=== PATIENT | female | born 1980 | race Caucasian/White ===

== ENCOUNTER 2020-01-03 16:59 | Emergency (ER) | payer SELFPAY ==
[2020-01-03 17:28] VITALS: BP 146/84; PULSE 89; RESP 16; TEMP 36.3; O2SAT 100
--- NOTE | 2020-01-03 21:10 | ED.URI ---
HPI - URI/Sore Throat General Chief Complaint: Upper Respiratory Infection Stated Complaint: FACIAL PAIN Time Seen by Provider: 01/03/20 20:59 Source: patient and RN notes reviewed Mode of arrival: ambulatory Limitations: no limitations History of Present Illness HPI Narrative: A 39 y/o female presents to the ED with constant sinus pain and congestion beginning last night at 11 PM. She states that this morning she developed a mild cough, lt ear pain, chills, pain with deep inspiration, body aches, RIDLEY, and lt neck pain. She reports that she started her menstrual cycle today and has been having associated ABD cramps. She notes that she missed work today and needs a work note, so that is why she came to the ED. She denies any sore throat, visional changes, fevers, N/V/D, or CP. MD elicited complaint: nasal congestion and sinus pain Onset (ago): day(s) (last night at 11 PM) Consistency: constant Associated symptoms: other (a mild cough, lt ear pain, chills, pain with deep inspiration, body aches, RIDLEY, and lt neck pain) Related Data Allergies Allergy/AdvReac Type Severity Reaction Status Date / Time shellfish derived Allergy Swelling Verified 01/03/20 22:10 of Lip/Tongue/Throat WASP Allergy Swelling Uncoded 01/03/20 22:10 Review of Systems Review of Systems: Narrative: CONSTITUTIONAL: Denies fever. Reports chills and body aches. EYES: Denies visual changes. ENT: Denies sore throat. Reports nasal congestion, sinus pain, lt ear pain, and lt neck pain. CARDIOVASCULAR: Denies chest pain. RESPIRATORY: Reports a mild cough and pain with deep inspiration. GASTROINTESTINAL: Denies nausea, vomiting, or diarrhea. NEUROLOGIC: Reports a RIDLEY. All systems reviewed & are unremarkable except as noted in HPI and below PMFSH Past Medical History Medical History (Updated 01/04/20 @ 00:00 by Lokesh Warren) Anxiety Depression GERD (gastroesophageal reflux disease) Renal disease Surgical History Surgical History (Updated 01/03/20 @ 21:52 by Ray Vidal) Hx of tubal ligation Previous section Social History Social History (Updated 01/03/20 @ 21:53 by Ray Vidal) Smoking status: Unknown if ever smoked Gender identity (if verbalized by the patient): Female Exam Narrative: Exam Narrative: GENERAL: Well-appearing, well-nourished, and in no acute distress. HEAD: Normocephalic, atraumatic. EYES: PERRLA and EOMI. ENT: Nares clear, no rhinorrhea or epistaxis. Mucous membranes moist. TM's clear. NECK: Supple. Mild anterior cervical adenopathy. CHEST: Clear to auscultation. No respiratory distress. HEART: Regular rate and rhythm. No murmur heard. Normal peripheral pulses. ABDOMEN: Soft, nontender, nondistended, normal active bowel sounds. EXTREMITIES: Normal range of motion. No edema. SKIN: Warm, dry, no rash. NEURO: No focal deficits. Alert and oriented X3. Course Course Emergency Course: Patient presented for evaluation of sinusitis type pain as well as fever. At the time of initial assessment, ABCs are intact. Patient does have some left-sided anterior cervical lymphadenopathy. Oropharynx is clear without signs of exudate or erythema, not consistent with strep pharyngitis. Patient with maxillary and frontal sinus pain no be consistent with sinusitis. Patient given antibiotic for sinusitis, advise follow-up with primary care provider. Vital Signs Vital signs: Vital Signs Temperature 36.3 C L 01/03/20 17:28 Pulse Rate 89 01/03/20 17:28 Respiratory Rate 16 01/03/20 17:28 Blood Pressure 146/84 H 01/03/20 17:28 Pulse Oximetry 100 01/03/20 17:28 Temperature 36.3 C L 01/03/20 17:28 Pulse Rate 94 01/03/20 22:05 Respiratory Rate 17 01/03/20 22:05 Blood Pressure 126/79 01/03/20 22:05 Pulse Oximetry 100 01/03/20 22:05 MDM - URI/Sore Throat Lab Data Labs: Influenza A Screen Negative Reference Range: Negative Influenza B Screen Negative Reference R
[2020-01-03 22:05] VITALS: BP 126/79; PULSE 94; RESP 17; O2SAT 100
== END 2020-01-03 22:05 | disposition home or self-care (01) ==
PROVIDERS: Emergency Provider Emergency Medicine; PCP Physician Assistant
DX: J32.9 Chronic sinusitis, unspecified (principal); K21.9 Gastro-esophageal reflux disease without esophagitis; N28.9 Disorder of kidney and ureter, unspecified
CPT/HCPCS: 87804; 99283

== ENCOUNTER 2020-11-08 10:40 | Emergency (ER) | payer SELFPAY ==
--- NOTE | 2020-11-08 10:50 | PC.NURSE ---
was called at 1046 with no answer and recording said no voicemail accepted.
--- NOTE | 2020-11-08 10:54 | PC.NURSE ---
called again at 1054, went to message that said not accepting calls at this time.
[2020-11-08 11:05] VITALS: BP 152/73; PULSE 86; RESP 18; TEMP 36.4; O2SAT 100
--- NOTE | 2020-11-08 11:31 | ED.DENTAL ---
HPI - Dental/Oral General Chief complaint: Dental/Oral Stated complaint: Tooth Pain Time Seen by Provider: 11/08/20 11:25 Source: patient Mode of arrival: ambulatory Limitations: no limitations History of Present Illness HPI Narrative: Carmen Bullard is a 40 yo female with PMH of anxiety, depression GERD, who [facility] and lower right molar. Tooth is partially broken off and has some right sided facial swelling that started 2 days ago. Take prescription antibiotics up to about a week ago the tooth was getting better but now is gotten worse wants antibiotics were completed-last antibiotic she took was Augmentin and she is unable to afford another expensive antibiotic at this time as she is just started a new job and has no insurance benefits yet. She has a dental appointment set up for the week that her benefits start Related Data Home Medications Medication Instructions Recorded Confirmed Otc Vitamins 11/08/20 naproxen 11/08/20 Allergies Allergy/AdvReac Type Severity Reaction Status Date / Time shellfish derived Allergy Swelling Verified 01/03/20 22:10 of Lip/Tongue/Throat WASP Allergy Swelling Uncoded 01/03/20 22:10 Review of Systems Review of Systems: Narrative: CONSTITUTIONAL: Denies fever, chills, sweats. EYES: Denies visual changes, redness, discharge. ENT: Denies rhinorrhea, congestion, sore throat, otalgia. Right lower molar pain, partial tooth fracture CARDIOVASCULAR: Denies chest pain, palpitations, edema. RESPIRATORY: Denies dyspnea, wheezing, cough GASTROINTESTINAL: Denies abdominal pain, nausea, vomiting, diarrhea. GENITOURINARY: Denies dysuria, hematuria, abnormal discharge SKIN: Denies rash or itching. NEUROLOGIC: Denies numbness, or focal weakness. PSYCHIATRIC: Denies anxiety or depression. [facility] Past Medical History Medical History Anxiety Depression GERD (gastroesophageal reflux disease) Renal disease Surgical History Surgical History Hx of tubal ligation Previous section Social History Social History (Updated 11/08/20 @ 11:36 by Mony Lombardi CNP) Smoking status: Never smoker Alcohol intake: current Gender identity (if verbalized by the patient): Female Comments At time of signature, I agree with nursing past medical, surgical, social and family history. There is no relevant family history pertinent to the presenting complaint. Patient's blood pressure is elevated and is likely due to the amount of pain patient is in; patient follow-up with PCP Exam Narrative: Exam Narrative: GENERAL: This is a well-nourished, well-developed patient, in moderate distress. HEAD: normocephalic, atraumatic. EYES: Sclera clear/white. Vision is grossly intact. EARS: External ears normal, . Hearing grossly intact. NOSE: External nose normal without nasal discharge, nares without redness, no rhinorrhea. Mouth-right sided cheek swelling with pain and last tooth lower right, #32-on palpation there is no abscess at the gum level but redness and pain on movement of jaw THROAT: Mucous membranes moist, NECK: Neck supple, non-tender CARDIOVASCULAR: Regular rate and rhythm without murmurs, gallops, or rubs. RESPIRATORY: Clear to auscultation. Breath sounds equal bilaterally. No wheezes, rales, or rhonchi. GASTROINTESTINAL: Abdomen soft, non-tender, SKIN: warm, intact with no suspicious lesions or rash, good texture and turgor. NEURO: awake, alert, and oriented to person, place and time. There were no obvious focal neurologic abnormalities. Steady gait EXTREMITIES: Normal range of motion. BACK: Nontender without deformity Course Course Emergency Course: Patient comes with right-sided cheek swelling and right lower molar tooth pain Started on penicillin, Naprosyn, okay and [place] -no palpable abscess along the gumline Follow-up with nina
--- NOTE | 2020-11-11 10:12 | ED.DENTAL ---
HPI - Dental/Oral General Chief complaint: Dental/Oral Stated complaint: Tooth Pain Time Seen by Provider: 11/08/20 11:25 Source: patient and RN notes reviewed Mode of arrival: ambulatory Limitations: no limitations History of Present Illness HPI Narrative: 40 yo female returns to the [facility] care for continued dental pain. Was seen 3 days ago for the same. Related Data Allergies Allergy/AdvReac Type Severity Reaction Status Date / Time shellfish derived Allergy Swelling Verified 11/11/20 10:05 of Lip/Tongue/Throat WASP AdvReac Severe Swelling Uncoded 11/11/20 10:05 PMFSH Past Medical History Medical History Anxiety Depression GERD (gastroesophageal reflux disease) Renal disease Surgical History Surgical History Hx of tubal ligation Previous section Social History Social History (Updated 11/08/20 @ 11:36 by Mony Lombardi CNP) Smoking status: Never smoker Alcohol intake: current Gender identity (if verbalized by the patient): Female Course Vital Signs Vital signs: Vital Signs Temperature 97.6 F 11/08/20 11:05 Pulse Rate 86 11/08/20 11:05 Respiratory Rate 18 11/08/20 11:05 Blood Pressure 152/73 H 11/08/20 11:05 Pulse Oximetry 100 11/08/20 11:05 Temperature 97.6 F 11/08/20 11:05 Pulse Rate 86 11/08/20 11:05 Respiratory Rate 18 11/08/20 11:05 Blood Pressure 152/73 H 11/08/20 11:05 Pulse Oximetry 100 11/08/20 11:05 MDM - Dental/Oral MDM Narrative Medical decision making narrative: Due to the cellulitic changes of the right lower jaw, redness, warmth and increased pain. Patient is unable to open her mouth. Has been on antibiotics for 3 days. Transferring to the emergency room for further evaluation, CT scan, labs and antibiotic treatment failure Differential Diagnosis Differential diagnosis: Likely dental caries, toothache and dental abscess Discharge Plan Discharge Clinical Impression: Dental abscess Patient Disposition: Home, Self-Care Condition: Stable Instructions: Antibiotic Form, Dental Abscess (ED) Additional Instructions: Take antibiotics as directed use pain meds as needed, gargle with salt water 4 times a day and use ice on cheek for swelling Prescriptions: New penicillin V potassium 500 mg tablet 500 mg PO Q8H Qty: 30 RF: 0 ibuprofen 800 mg tablet 800 mg PO TID PRN (Reason: pain) Qty: 30 RF: 0 hydrocodone-acetaminophen [[place]] 5-325 mg tablet 1 tablet PO Q8H PRN (Reason: pain) Qty: 10 RF: 0 Follow-up/Referrals: UNKNOWN,DOCTOR [Primary Care Provider] - Stand Alone Forms: Work/School Release IP Time of Disposition: 11:43
== END 2020-11-08 11:51 | disposition home or self-care (01) ==
PROVIDERS: Emergency Provider Nurse Practitioner
DX: K04.7 Periapical abscess without sinus (principal); K21.9 Gastro-esophageal reflux disease without esophagitis
CPT/HCPCS: 99213; G0463

== ENCOUNTER 2020-11-11 09:59 | Emergency (ER) | payer SELFPAY ==
[2020-11-11 10:17] VITALS: BP 143/58; PULSE 107; RESP 16; TEMP 36.4; O2SAT 99
--- NOTE | 2020-11-11 10:34 | ED.DENTAL ---
HPI - Dental/Oral General Chief complaint: Dental/Oral Stated complaint: tooth pain Time Seen by Provider: 11/11/20 10:15 Source: patient and RN notes reviewed Mode of arrival: ambulatory Limitations: no limitations History of Present Illness HPI Narrative: 40-year-old [facility] pain, redness, swelling to the right lower jaw. Has had dental pain since August. Was seen evaluated 3 days ago and prescribed penicillin which she reports she has been taking. Patient unable to open her mouth. Substantial swelling noted to the right lower jaw. Has been unable to eat or drink secondary to pain and open jaw for several days. Redness, swelling, increased warmth to the right lower jaw and into the neck. Related Data Allergies Allergy/AdvReac Type Severity Reaction Status Date / Time shellfish derived Allergy Swelling Verified 11/11/20 10:05 of Lip/Tongue/Throat WASP AdvReac Severe Swelling Uncoded 11/11/20 10:05 Review of Systems Review of Systems: Narrative: CONSTITUTIONAL: Denies fever, chills, or sweats. EYES: Denies visual changes, redness, or discharge. ENT: Denies rhinorrhea, congestion, sore throat, or otalgia. Pain, swelling, redness right lower jaw CARDIOVASCULAR: Denies chest pain. RESPIRATORY: Denies cough or dyspnea. GASTROINTESTINAL: Denies abdominal pain, nausea, vomiting, or diarrhea. GENITOURINARY: Denies dysuria or hematuria. SKIN: Denies rash or itching. Endorses redness, warmth right lower jaw MUSCULOSKELETAL: Denies back pain, joint pain, or myalgia. NEUROLOGIC: Denies headache, numbness, or weakness. PSYCHIATRIC: anxiety, denies depression. All other systems reviewed are negative, except as documented in HPI. REPLACED BY [facility] Past Medical History Medical History Anxiety Depression GERD (gastroesophageal reflux disease) Renal disease Surgical History Surgical History Hx of tubal ligation Previous section Social History Social History (Updated 11/08/20 @ 11:36 by Mony Lombardi CNP) Smoking status: Never smoker Alcohol intake: current Gender identity (if verbalized by the patient): Female Comments At the time of my signature, I reviewed and agree with the nursing past medical, surgical, social, and family history. There is no relevant family history pertinent to the patient complaint. Exam Narrative: Exam Narrative: GENERAL: This is a well-nourished, well-developed patient, significant pain. Obese HEAD: atraumatic. Right lower jaw substantial swelling noted with redness along the right lower jaw into the neck. Hot to touch. EYES: PERRL. Sclera clear/white. Vision is grossly intact. EARS: External ears normal. NOSE: External nose normal with no obvious nasal discharge, nares without redness, no rhinorrhea. THROAT: Mucous membranes moist, posterior pharynx clear. NECK: Neck tender right side with lymphadenopathy and mass. CARDIOVASCULAR: Tachycardic and rhythm without murmurs, gallops, or rubs. RESPIRATORY: Clear to auscultation. Breath sounds equal bilaterally. No wheezes, rales, or rhonchi. GASTROINTESTINAL: Abdomen soft, non-tender, nondistended. Bowel sounds are active. No hepato-splenomegaly, or palpable masses. No guarding. SKIN: warm, intact. Right lower jaw redness and hot to touch NEURO: awake, alert, and oriented to person, place and time. EXTREMITIES: No clubbing, cyanosis, or edema. No joint tenderness, effusion, or edema noted. HENMT: Face images: 1. Substantial swelling, redness, increased warmth, tender to touch. Mouth: Yes restricted motion (Left jaw secondary to pain and swelling the jaw) Course Course Emergency Course: Increased pain, redness, swelling. Patient encouraged to go to the emergency room for additional testing due to treatment failure of the antibiotics that were prescribed. Vital Signs Vital signs: Vi
== END 2020-11-11 10:35 | disposition short-term general hospital (02) ==
PROVIDERS: Emergency Provider Nurse Practitioner
DX: K04.7 Periapical abscess without sinus (principal); K21.9 Gastro-esophageal reflux disease without esophagitis
CPT/HCPCS: 99212; G0463

== ENCOUNTER 2020-11-11 10:57 | Inpatient (IN) | payer SELFPAY ==
--- NOTE | ~2020-11-11 | CT_ITS ---
EXAMINATION: CT soft tissue neck w con DATE: 11/11/2020 12:43 INDICATION: Right neck swelling and dental pain TECHNIQUE: Computed tomography (CT) of the neck was performed with 75 mL Omnipaque-350 intravenous co ntrast. The dose-length product was 446.69 mGy-cm. COMPARISON: None FINDINGS: There is a subperiosteal fluid collection adjacent to the right mandibular angle measuring 11 x 5 x 4 mm, consistent with abscess. There are adjacent dental caries and. Lucencies in the adjace nt right mandibular molar. There is soft tissue swelling and skin stranding adjacent to the right man dible. Prominent submandibular lymph nodes, likely reactive. Straightening of cervical lordosis, like ly due to muscle spasm. Mild cervical spondylosis. IMPRESSION: 1. Abnormal subperiosteal fluid collection adjacent to the right mandibular angle, consistent with ab scess. 2: Prominent submandibular lymph nodes, likely reactive. Reviewed, dictated and finalized at location A. [facility] IMPRESSION: 1. Abnormal subperiosteal fluid collection adjacent to the right mandibular ang le, consistent with abscess. 2: Prominent submandibular lymph nodes, likely reactive.
--- NOTE | ~2020-11-11 | CT_ITS ---
EXAMINATION: CT soft tissue neck w con DATE: 11/13/2020 08:23 INDICATION: Odontogenic abscess. TECHNIQUE: Computed tomography (CT) of the neck was performed with 75 mL Omnipaque-350 intravenous co ntrast. Automated exposure control and iterative reconstruction technique were employed. The dose-toya gth product was 530.55 mGy-cm. COMPARISON: Neck CT 11/11/2020 FINDINGS: There are no pathologically enlarged lymph nodes. There is plaque in the proximal internal carotid arteries with 0% stenosis relative to normal distal artery lumen diameters. The paranasal sin uses are clear. The mastoid air cells are normal. Tooth 31 demonstrates a carious lesion and periapic al lucencies. There is a subperiosteal abscess of the mandible in this area measuring 1.8 x 0.6 x 1.3 cm without significant change. There is inflammation of the overlying subcutaneous fat with mild wor sening. There is mild cervical spondylosis. IMPRESSION: 1. Carious lesion and periapical lucencies involving tooth 31 with adjacent subperiosteal abscess wit hout significant change and with inflammation of the overlying subcutaneous fat with mild worsening. Reviewed, dictated and finalized at location B. P PREPARER IMPRESSION: 1. Carious lesion and periapical lucencies involving tooth 31 with adjacent sub periosteal abscess without significant change and with inflammation of the over lying subcutaneous fat with mild worsening.
[2020-11-11 11:05] VITALS: BP 143/96; PULSE 130; RESP 16; TEMP 37.1; O2SAT 99
[2020-11-11 11:31] LABS: Basophils Absolute Auto 0.1 K/mm3 (0.0-0.1); Basophils Percent Auto 0.5 % (0.2-1.2); Eosinophils Absolute Auto 0.1 K/mm3 (0-0.3); Eosinophils Percent Auto 0.5 % (0-4.4); Hemoglobin 11.8 g/dL (12.0-15.0); Immature Granulocyte Absolute 0.07 K/mm3 (0.00-0.031); Immature Granulocyte Percent A 0.4 % (0-0.5); Lymphocytes Absolute Auto 1.73 K/mm3 (0.9-3.2); Lymphocytes Percent Auto 9.3 % (18.3-44.2); Mean Corpuscular HGB Conc 31.9 g/dl (32-36); Mean Corpuscular Hemoglobin 24.6 pg (26-34); Mean Corpuscular Volume 77.2 fl (80-100); Mean Platelet Volume 10.3 fl (7.4-10.4); Monocytes Absolute Auto 1.4 K/mm3 (0.1-0.6); Monocytes Percent Auto 7.7 % (2.6-8.5); Neutrophils Absolute Auto 15.1 K/mm3 (1.3-6.7); Neutrophils Percent Auto 81.6 % (45.5-73.1); Platelet Count Result 420 k/mm3 (150-375); Red Blood Count 4.79 M/mm3 (4.2-5.4); Red Cell Distribution Width 13.4 % (11.5-14.5); White Blood Count 18.6 K/mm3 (4.5-10.0)
[2020-11-11 11:46] LABS: Anion Gap 8 mmol/L (8-16); Blood Urea Nitrogen 12 mg/dL (7-17); CRP 5.2 mg/dL (<1.0); Calcium 9.3 mg/dL (8.4-10.2); Carbon Dioxide 27 mmol/L (22-30); Chloride 102 mmol/L (98-107); Estimated CRCL calculation 93 ml/min; Estimated Glomerular Filt Rate > 60; Glucose 157 mg/dL (65-105); Potassium 4.2 mmol/L (3.4-5.0); Sodium 137 mmol/L (137-145)
[2020-11-11 11:55] LABS: Erythrocyte Sedimentation Rate 88 mm/hr (0-20)
--- NOTE | 2020-11-11 11:57 | ED.DENTAL ---
HPI - Dental/Oral General Chief complaint: Dental/Oral <PAUL Cottrell Last Filed: 11/11/20 12:01> Stated complaint: tooth abscess <PAUL Cottrell Last Filed: 11/11/20 12:01> Time Seen by Provider: 11/11/20 11:40 <PAUL Cottrell Last Filed: 11/11/20 12:01> Source: patient <PAUL Cottrell Last Filed: 11/11/20 12:01> Mode of arrival: ambulatory <PAUL Cottrell Last Filed: 11/11/20 12:01> Limitations: no limitations <PAUL Cottrell Last Filed: 11/11/20 12:01> History of Present Illness HPI Narrative: This is a 40-year-old female that presents the emergency department for right-sided facial swelling worsening over the last 3 days. Reports she was seen at urgent care for a dental infection. She was started on penicillin. She has been taking this medication as prescribed and continued to have worsening swelling and redness on the right side of her neck. She was seen in urgent care again today and sent here for further evaluation. Denies fever, dysphagia, or dyspnea. <PAUL Cottrell Last Filed: 11/11/20 12:01> Location: Tooth # (32) <Xenia Muñoz PA-C - Last Filed: 11/11/20 12:01> Related Data Allergies/adverse reactions: Allergies Allergy/AdvReac Type Severity Reaction Status Date / Time shellfish derived Allergy Swelling Verified 11/11/20 10:05 of Lip/Tongue/Throat WASP AdvReac Severe Swelling Uncoded 11/11/20 10:05 <PAUL Cottrell Last Filed: 11/11/20 12:01> Review of Systems Review of Systems: Narrative: CONSTITUTIONAL: Denies fever ENT: Reports dentalgia RESPIRATORY: Denies dyspnea. <PAUL Cottrell Last Filed: 11/11/20 12:01> All systems reviewed & are unremarkable except as noted in HPI and below <PAUL Cottrell Last Filed: 11/11/20 12:01> [facility] Past Medical History Medical History: Medical History Anxiety Depression GERD (gastroesophageal reflux disease) Renal disease <Xenia Muñoz PA-C - Last Filed: 11/11/20 12:01> Surgical History Surgical History: Surgical History Hx of tubal ligation Previous section <Xenia Muñoz PA-C - Last Filed: 11/11/20 12:01> Family History Family History: Family History (Updated 11/11/20 @ 16:03 by Veronica Noonan RN) Mother Asthma Hypertension Sibling Asthma Hypertension Sibling Asthma Father Chronic obstructive pulmonary disease Congestive heart failure <Xenia Muñoz PA-C - Last Filed: 11/11/20 12:01> Social History Social History: Social History (Updated 11/08/20 @ 11:36 by Mony Lombardi CNP) Smoking status: Never smoker Alcohol intake: unknown Substance use: never Substance use type: does not use Gender identity (if verbalized by the patient): Female Sexual Orientation (if Verbalized by the Patient): Straight or Heterosexual Spiritual care concerns: No <Xenia Muñoz PA-C - Last Filed: 11/11/20 12:01> Exam Narrative: Exam Narrative: GENERAL: Well-appearing, well-nourished, and in no acute distress. HEAD: Normocephalic, atraumatic. EYES: EOMI. ENT: Mucous membranes moist. Oropharynx without tonsillar hypertrophy exudate or other lesions. Tooth #32 is broken and tender to palpation. Swelling of the right lower oral mucosa is noted. Floor of mouth is soft. Patient does have trouble opening her mouth fully NECK: Moderate to severe right-sided neck swelling in the submandibular area with overlying erythema. Patient tender to palpation in this area CHEST: Clear to auscultation. No respiratory distress. No wheezes rales or rhonchi HEART: Regular rate and rhythm. No murmur heard. Normal peripheral pulses. ABDOMEN: Soft, nontender, nondistended, normal active bowel sounds. EXTREMITIES: Normal range of motion. No edema. SK
[2020-11-11] MEDS: SODIUM CHLORIDE 0.9% IV 1,000 ML 999 ML IV CONT (11:58)
[2020-11-11 12:44] LABS: Lactic Acid Reflex 1.5 mmol/L (0.7-2.1)
[2020-11-11] MEDS: AMPICILLIN SULB 3 GM/NS 100 ML 3 GM/100 ML VIAL IVPB ×3 (13:10→23:42)
[2020-11-11 13:11] VITALS: BP 141/74; PULSE 94; RESP 18; O2SAT 96
[2020-11-11] MEDS: KETOROLAC 30 MG/ML VIAL (*BKC) IV PUSH (13:57)
[2020-11-11 14:27] VITALS: TEMP 37.1
[2020-11-11 15:17] VITALS: BP 149/89; PULSE 109; RESP 18; O2SAT 97
--- NOTE | 2020-11-11 15:50 | PC.NURSE ---
This patient, Carmen Bullard, was admitted to 2 Medical Room 260-01. Patient/family oriented to hospital policies and general routines including ID bracelet, bed and alarms, visiting hours, pain management, procedures, bathroom and other care routines, personal items, smoking policy, room service/diet, and visiting hours. Information on how to activate the Rapid Response Team has been discussed. Patient/Family are encouraged to report perceived risks to care and to ask questions if they do not understand what they are told or what they should do.
[2020-11-11 15:55] VITALS: BMI 31.6
--- NOTE | 2020-11-11 20:13 | PM.IMHP ---
H&P: HPI History of Present Illness Date/Time: 11/11/20 20:13 Chief Complaint: Right jaw abscess Narrative: Carmen Bullard is a 40 year old female Who came to the emergency room with facial swelling. She was afebrile nontoxic appearing. The patient had some tachycardia when she initially arrived but was given IV fluids. The patient tells me that this started back in August when her tooth broke off and she has been having some dental pain ever since then. The patient had been started on Augmentin had completed that. Then the patient went to urgent care on 11/08/2020 and was given penicillin she has been taking this for 3 days without any relief. The patient woke up today and had a large abscess to the right jaw line. Patient has some mild discomfort. The patient stated that she cannot open her mouth all the way and she has basically been doing soft foods in full liquids. The patient has been waiting for her dental appointment. She has tried cold and warm Soaks that offered no relief. her white count was noted to be 18.6. Platelet count 420. Absolute neutrophils 15.1. ESR 88. Soft tissue neck CT was read as Abnormal subperiosteal fluid collection adjacent to the right mandibular angle, consistent with abscess. 2: Prominent submandibular lymph nodes, likely reactive. after having a discussion with the ER I felt that it was best that the patient be transferred to hospital with where there is oral surgeon as there is no oral surgeon here any longer. The ED provider sure me that ENT has been notified and that they would be available in the event that they would be needed. I spoke with my collaborative who initially felt that the patient would be well served at another location with there is an oral surgeon. However my collaborative had a discussion with the ED physician and it was decided that the patient needed to be admitted to our services at this time. I did leave a message for interventional radiology to determine if they would be able to drain this abscess however I did not get a return phone call at this time. However I will reach out to ENT to determine if they will be able to assist does with this patient. I spoke with the patient and explained that I would do everything that we could to get this abscess drained and in the event that were not able to do it here then perhaps we can get her transferred to another hospital that is able to do this for her. I did reach out to [facility] [phone] for physician hospital bed request. The patient has been placed on list for possible transfer. There are no beds available at this time. The patient had been placed on Unasyn here and Decadron as well. She was given Toradol for discomfort which she states helped her immensely. Patient is being admitted to inpatient services on the date of 11/11/2020. Review of Systems Review of Systems: All systems reviewed & are unremarkable except as noted in HPI and below Constitutional: Constitutional: Reports as per HPI and Reports no additional constitutional complaints Eyes: Eyes: Reports as per HPI and Reports no additional eye complaints ENT: Reports system reviewed and no additional complaints, except as documented and Reports Normal hearing present Cardiovascular: Cardiovascular: Reports no additional cardiovascular complaints Respiratory: Respiratory: Reports no additional respiratory complaints and Reports no additional respiratory complaints Gastrointestinal: Gastrointestinal: Reports as per HPI and Reports no additional gastrointestinal complaints Musculoskeletal: Musculoskeletal: Reports no additional musculoskeletal complaints Integumentary/Breasts: Skin/Breast: Reports system reviewed and no additional complaints, except as docu and Reports as per HPI Neurologic: Reports system reviewed and no additional complaints, except as documented, Reports as per HPI and Reports Normal hearing present Psychiatric: Psychiatric: Reports no
[2020-11-11 22:00] VITALS: BP 135/80; PULSE 102; RESP 16; TEMP 35.9; O2SAT 97
[2020-11-12 05:35] LABS: Basophils Percent Auto 0.1 % (0.2-1.2); Hematocrit 34.4 % (37.0-47.0); Immature Granulocyte Absolute 0.09 K/mm3 (0.00-0.031); Immature Granulocyte Percent A 0.6 % (0-0.5); Lymphocytes Absolute Auto 1.36 K/mm3 (0.9-3.2); Lymphocytes Percent Auto 9.2 % (18.3-44.2); Mean Corpuscular Hemoglobin 24.7 pg (26-34); Mean Corpuscular Volume 77.3 fl (80-100); Mean Platelet Volume 10.4 fl (7.4-10.4); Monocytes Absolute Auto 0.2 K/mm3 (0.1-0.6); Monocytes Percent Auto 1.6 % (2.6-8.5); Neutrophils Absolute Auto 13.1 K/mm3 (1.3-6.7); Neutrophils Percent Auto 88.5 % (45.5-73.1); Platelet Count Result 439 k/mm3 (150-375); Red Blood Count 4.45 M/mm3 (4.2-5.4); Red Cell Distribution Width 13.3 % (11.5-14.5); White Blood Count 14.8 K/mm3 (4.5-10.0)
[2020-11-12] MEDS: AMPICILLIN SULB 3 GM/NS 100 ML 3 GM/100 ML VIAL IVPB ×4 (05:35→23:23)
[2020-11-12 05:58] LABS: Alanine Aminotransferase 13 U/L (4-35); Albumin Level 3.7 g/dL (3.5-5.1); Alkaline Phosphatase 89 U/L (38-126); Anion Gap 7 mmol/L (8-16); Aspartate Amino Transferase 16 U/L (14-36); Bilirubin,Total 0.7 mg/dL (0.2-1.3); Blood Urea Nitrogen 14 mg/dL (7-17); Calcium 9.1 mg/dL (8.4-10.2); Carbon Dioxide 26 mmol/L (22-30); Chloride 104 mmol/L (98-107); Estimated CRCL calculation 105 ml/min; Estimated Glomerular Filt Rate > 60; Glucose 169 mg/dL (65-105); Potassium 3.9 mmol/L (3.4-5.0); Sodium 137 mmol/L (137-145)
[2020-11-12 06:00] VITALS: BP 131/68; PULSE 85; RESP 18; TEMP 36.4; O2SAT 95
--- NOTE | 2020-11-12 08:04 | PM.IMPN ---
Progress Note: A&P Assessment and Plan (1) Submandibular abscess: Code(s): K12.2 - Cellulitis and abscess of mouth Status: Acute Assessment and Plan: Patient met SIRS criteria in ED with tachycardia and leukocytosis; lactic acid WNL. Abscess suspected source. Tachycardia resolved quickly and Leukocytosis improving. BCx drawn and are pending. Clinically she appears to have improved overnight with IV antibiotics. Per EMR, it appears ENT has been consulted from the ED; appreciate recommendations. We do not have oral surgery at this facility, thus [facility] was contacted and a bed was requested on admission; awaiting bed to become available per EMR. IR also contacted to see if this could be drained by their service; awaiting call back. Unasyn and decadron recommended per ENT and started in ED Continue with Unasyn Continue with Decadron IV pain medications for today; consider switching to oral today or tomorrow pending clinical course Await further recommendations from ENT; appreciate input Continue supportive care; warm compress Monitor for improvement Daily labs Subjective Date/time seen: 11/12/20 08:04 Interval history: Patient is a 40 yo F with history of anxiety, depression, and GERD, who is seen in follow up for subperiosteal (right mandibular) abscess. Patient states she is feeling slightly better today. She feels the fluid collection is about the same, but the surrounding edema, erythema, and warmth has improved. She is able to open her mouth more today. She is able to tolerate some foods and her medications. No other complaints at the moment. Denies subjective f/c/s, dizziness, lightheadedness, cp/palpitations, sob/cough, difficulties breathing/swallowing, n/v/d/c, abd pain, dysuria, hematuria, calf pain/swelling. Review of Systems Review of Systems: All systems reviewed & are unremarkable except as noted in HPI and below Exam Narrative: Exam Narrative: General: Patient sitting upright in bed in no acute distress. HEENT: Normocephalic, EOMI, oral mucosa moist. Significant area of induration roughly 4x4 cm right submandibular mass/edema with associated erythema and warmth overlying area; ttp; surrounding areas show minimal erythema/warmth/edema. Able to open mouth partly. Further assessment of oropharynx difficult as she cannot fully open mouth. Cardiovascular: Rate and rhythm are regular. No notable murmur, rub, or gallop. Respiratory: Lungs clear to auscultation all dominguez. Non-labored breathing. Abdomen: Soft, non-tender, non-distended, bowel sounds present. Extremities: Peripheral pulses intact. No edema. NTTP b/l calves Neuro: No focal neurological deficits. Speech is clear. Objective Data Vital Signs Vital Signs: Last Vital Signs Temp 97.5 F L 11/12/20 06:00 Pulse 85 11/12/20 06:00 Resp 18 11/12/20 06:00 BP 131/68 11/12/20 06:00 Pulse Ox 95 11/12/20 06:00 Intake/Output Intake/Output: Intake & Output 11/09/20 11/10/20 11/11/20 11/12/20 23:59 23:59 23:59 23:59 Intake Total 1300 650 Output Total 750 Balance 1300 -100 Meds/Results Medications: Active Medications Generic Name Dose Route Start Last Admin Trade Name Freq PRN Reason Stop Dose Admin Dexamethasone Sodium Phosphate 13.5 mg 11/11/20 20:30 11/12/20 06:08 Dexamethasone Sod Phos Inj 10 Mg/Ml 1 Ml Vial 0.15 mg/kg (13.5 mg) 13.5 mg IV PUSH Administration Q6HR DEJA Ampicillin Sodium/Sulbactam Sodium 3 gm in 100 mls @ 200 mls/hr 11/11/20 18:30 11/12/20 06:08 Unasyn 3 Gm/Ns 100 Ml IVPB Infused Q6HR DEJA Infusion Acetaminophen 1,000 mg in 100 mls @ 400 mls/hr 11/12/20 00:00 11/12/20 05:35 Ofirmev 1,000 Mg Ivpb IVPB 11/13/20 00:01 Infused Q6HR DEJA Infusion Ketorolac Tromethamine 15 mg 11/11/20 20:35 Ketorolac 15 Mg/Ml Vial (*Bkc) IV PUSH Q6H PRN Pain Rated 4-6 Radiology Results: ITS Impressions
--- NOTE | 2020-11-12 12:32 | WPDCN ---
Assessment and Plan Assessment and plan (1) Odontogenic infection of jaw: Code(s): M27.2 - Inflammatory conditions of jaws Status: Acute Assessment and Plan: the patient is now status post incision and drainage without any jenni purulence noted. I am concerned at the amount of right-sided submandibular edema she has. Should the patient worsen in any sense please inform me immediately. I recommend cessation of steroids is they may mask the infectious process. The patient is okay for food and liquids at this time. Please continue IV antibiotics. I will reassess tomorrow morning, should the patient not improve will most likely recommend reimaging with a contrasted neck scan. Continue to trend WBC. Should the CT demonstrated fluid collection the next step would be operative intervention via transcervical approach to the submandibular space. Please maintain strict glucose control. Should operative intervention be necessary it would most likely occur Thursday evening or Thursday a.m.. HPI Data of Consult Date/Time: 11/12/20 12:32 Requesting Physician: Cole Castro PA-C Primary Care Provider: Efrain Lucas, PA Consult Narrative Narrative: Carmen Bullard is a 40 year old female with a right sided odontogenic neck infection. The patient reports Right-sided pain edema and trismus. That being said she reports the symptoms have improved following approximately 24 hours of steroids and antibiotics. Patient has an appointment this Thursday with her dentist. Review of Systems Constitutional: Constitutional: Denies fatigue, Denies fever(s) and Denies lethargy Eyes: Eyes: Denies blurry vision and Denies change in vision ENT: Reports as per HPI Cardiovascular: Cardiovascular: Denies chest pain Respiratory: Respiratory: Denies cough Endocrine: Endocrine: Denies fatigue Hematologic/Lymphatic: Hematologic/Lymphatic: Denies easy bleeding, Denies easy bruising and Denies lymphadenopathy Allergic/Immunologic: Allergic/Immunologic: Denies seasonal rhinorrhea PMF Past Medical History Medical History (Updated 11/12/20 @ 13:05 by Vitaly Ruffin MD) Anxiety no longer on any medications Depression no longer taking medications. GERD (gastroesophageal reflux disease) Renal disease Surgical History Surgical History (Updated 11/11/20 @ 20:25 by Krista Landeros NP) History of bunionectomy Hx of tubal ligation Previous section X3 Family History Family History (Updated 11/11/20 @ 20:26 by Krista Landeros NP) Mother Asthma Hypertension Sibling Asthma Hypertension Sibling Asthma Father Chronic obstructive pulmonary disease He has been Congestive heart failure Social History Social History (Updated 11/11/20 @ 20:27 by Krista Landeros NP) Social History: the patient recently started a job at [employer]. She is from her but now lives with a significant other. She has 3 children. She stated that her significant other are could be durable power bulldozer press operator for healthcare. Patient is a full code. She is a lifelong nonsmoker and rarely uses alcohol. She denies any marijuana or illicit drugs. Smoking status: Never smoker Alcohol intake: unknown Substance use: never Substance use type: does not use Gender identity (if verbalized by the patient): Female Sexual Orientation (if Verbalized by the Patient): Straight or Heterosexual Spiritual care concerns: No Meds Home Medications and Allergies Home Medications Medication Instructions Recorded Confirmed Type hydrocodone-acetaminophen [[place]] 1 tablet PO Q8H PRN #10 tablet 11/08/20 11/11/20 Rx ibuprofen 800 mg PO TID PRN #30 tablet 11/08/20 11/11/20 Rx penicillin V potassium 500 mg PO Q8H #30 tablet 11/08/20 11/11/20 Rx Allergies Allergy/AdvReac Type Severity Reaction Status Date / Time shellfish derived Allergy Swelling Verified 11/11/20 10:05 o
[2020-11-12] MEDS: KETOROLAC 15 MG/ML VIAL (*BKC) IV PUSH (12:47)
[2020-11-12 14:00] VITALS: BP 148/68; PULSE 113; RESP 16; TEMP 36.7; O2SAT 98
[2020-11-12 22:00] VITALS: BP 129/55; PULSE 87; RESP 20; TEMP 36.8; O2SAT 99
[2020-11-13] VITALS (15 sets, daily range): BP systolic 115–177; BP diastolic 54–99; PULSE 69–102; RESP 11–20; TEMP 35.9–36.3; O2SAT 94–100
[2020-11-13] MEDS: AMPICILLIN SULB 3 GM/NS 100 ML 3 GM/100 ML VIAL IVPB ×4 (05:12→23:32)
[2020-11-13 05:42] LABS: Basophils Percent Auto 0.2 % (0.2-1.2); Hematocrit 32.4 % (37.0-47.0); Hemoglobin 10.2 g/dL (12.0-15.0); Immature Granulocyte Absolute 0.12 K/mm3 (0.00-0.031); Immature Granulocyte Percent A 0.6 % (0-0.5); Lymphocytes Absolute Auto 3.26 K/mm3 (0.9-3.2); Lymphocytes Percent Auto 16.9 % (18.3-44.2); Mean Corpuscular HGB Conc 31.5 g/dl (32-36); Mean Corpuscular Hemoglobin 24.6 pg (26-34); Mean Corpuscular Volume 78.3 fl (80-100); Mean Platelet Volume 10.3 fl (7.4-10.4); Monocytes Absolute Auto 1.4 K/mm3 (0.1-0.6); Monocytes Percent Auto 7.4 % (2.6-8.5); Neutrophils Absolute Auto 14.4 K/mm3 (1.3-6.7); Neutrophils Percent Auto 74.9 % (45.5-73.1); Platelet Count Result 459 k/mm3 (150-375); Red Blood Count 4.14 M/mm3 (4.2-5.4); Red Cell Distribution Width 13.6 % (11.5-14.5); White Blood Count 19.3 K/mm3 (4.5-10.0)
--- NOTE | 2020-11-13 07:31 | PM.PNGS ---
Progress Note: A&P Assessment and Plan (1) Odontogenic infection of jaw: Code(s): M27.2 - Inflammatory conditions of jaws Status: Acute Assessment and Plan: Please keep the patient npo, ct with contrast ordered for further evaluation given persistent edema which appears more fluctuant today. Increased in wbc may be secondary to I and D yesterday vs steroids vs persistent/worsening infectious process. If fluid collection present plan is for the OR in the next 24 hours. Please continue IV abx. (2) Submandibular abscess: Code(s): K12.2 - Cellulitis and abscess of mouth Status: Acute Subjective Subjective Date/Time Seen: 11/13/20 07:31 Patient reports overall feeling improved. WBC increased from 14 to 19. Exam Neck: Other: Persistent right submandibular edema. Softer and less painful to palpation. Objective Data Vital Signs Vital Signs: Vital Signs - 24 hr 11/12/20 14:00 11/12/20 22:00 Temperature 36.7 C 36.8 C Pulse Rate 113 H 87 Respiratory Rate 16 20 Blood Pressure 148/68 H 129/55 L Pulse Oximetry 98 99 Intake/Output Intake/Output: Intake & Output 11/10/20 11/11/20 11/12/20 11/13/20 23:59 23:59 23:59 23:59 Intake Total 1300 2400 200 Output Total 2350 1000 Balance 1300 50 -800 Meds/Results Medications: Active Medications Generic Name Dose Route Start Last Admin Trade Name Freq PRN Reason Stop Dose Admin Ampicillin Sodium/Sulbactam Sodium 3 gm in 100 mls @ 200 mls/hr 11/11/20 18:30 11/13/20 05:44 Unasyn 3 Gm/Ns 100 Ml IVPB Infused Q6HR DEJA Infusion Ketorolac Tromethamine 15 mg 11/12/20 08:09 11/12/20 12:47 Ketorolac 15 Mg/Ml Vial (*Bkc) IV PUSH 15 mg Q6H PRN Administration Breakthrough Pain Radiology Results: ITS Impressions Soft Tissue Neck CT 11/11/20 13:15 IMPRESSION: 1. Abnormal subperiosteal fluid collection adjacent to the right mandibular angle, consistent with abscess. 2: Prominent submandibular lymph nodes, likely reactive. Labs Labs: Laboratory Results - last 24 hr 11/13/20 05:14 WBC 19.3 H RBC 4.14 L Hgb 10.2 L Hct 32.4 L MCV 78.3 L MCH 24.6 L MCHC 31.5 L RDW 13.6 Plt Count 459 H MPV 10.3 Immature Gran % (Auto) 0.6 H Neut % (Auto) 74.9 H Lymph % (Auto) 16.9 L [place] % (Auto) 7.4 Eos % (Auto) 0.0 Baso % (Auto) 0.2 Lymph # (Auto) 3.26 H Weak[place] # (Auto) 1.4 H Eos # (Auto) 0.0 Baso # (Auto) 0.0 Abs Immat Gran (auto) 0.12 H Absolute Neuts (auto) 14.4 H Absolute Nucleated RBC 0.0 Nucleated RBC % 0.0 Quality VTE Prophylaxis VTE prophylaxis: mechanical ordered
[2020-11-13] MEDS: KETOROLAC 15 MG/ML VIAL (*BKC) IV PUSH (07:48)
--- NOTE | 2020-11-13 09:02 | WPDANESEPPF ---
Anes - Initial Pre Proc Eval Procedure: Operation Date: 11/13/20 10:00 Proposed Procedures p Incision and Drainage Right Submandibular Abscess - Vitaly Ruffin MD Date/Time: 11/13/20 09:02 Surgeon: Debra Toussaint PA-C Pre Op Diagnosis: Facial cellulitis Patient Data Age: 40 Gender: F Height: 1.68 m Weight: 89 kg Last Vital Signs Temp 36.2 C L 11/13/20 06:00 Pulse 82 11/13/20 06:00 Resp 20 11/13/20 06:00 BP 137/66 11/13/20 06:00 Pulse Ox 99 11/13/20 06:00 Allergies Allergy/AdvReac Type Severity Reaction Status Date / Time shellfish derived Allergy Swelling Verified 11/11/20 10:05 of Lip/Tongue/Throat WASP AdvReac Severe Swelling Uncoded 11/11/20 10:05 Home Medications Medication Instructions Recorded Confirmed Type hydrocodone-acetaminophen [[place]] 1 tablet PO Q8H PRN #10 tablet 11/08/20 11/11/20 Rx ibuprofen 800 mg PO TID PRN #30 tablet 11/08/20 11/11/20 Rx penicillin V potassium 500 mg PO Q8H #30 tablet 11/08/20 11/11/20 Rx Laboratory Tests 11/13/20 05:14 WBC 19.3 K/mm3 H K/mm3 (4.5-10.0) RBC 4.14 M/mm3 L M/mm3 (4.2-5.4) Hgb 10.2 g/dL L g/dL (12.0-15.0) Hct 32.4 % L % (37.0-47.0) MCV 78.3 fl L fl (80-100) MCH 24.6 pg L pg (26-34) MCHC 31.5 g/dl L g/dl (32-36) RDW 13.6 % % (11.5-14.5) Plt Count 459 k/mm3 H k/mm3 (150-375) MPV 10.3 fl fl (7.4-10.4) Immature Gran % (Auto) 0.6 % H % (0-0.5) Neut % (Auto) 74.9 % H % (45.5-73.1) Lymph % (Auto) 16.9 % L % (18.3-44.2) [place] % (Auto) 7.4 % % (2.6-8.5) Eos % (Auto) 0.0 % % (0-4.4) Baso % (Auto) 0.2 % % (0.2-1.2) Lymph # (Auto) 3.26 K/mm3 H K/mm3 (0.9-3.2) [place] # (Auto) 1.4 K/mm3 H K/mm3 (0.1-0.6) Eos # (Auto) 0.0 K/mm3 K/mm3 (0-0.3) Baso # (Auto) 0.0 K/mm3 K/mm3 (0.0-0.1) Abs Immat Gran (auto) 0.12 K/mm3 H K/mm3 (0.00-0.031) Absolute Neuts (auto) 14.4 K/mm3 H K/mm3 (1.3-6.7) Absolute Nucleated RBC 0.0 K/mm3 K/mm3 (0.0-0.012) Nucleated RBC % 0.0 % % (0.0-0.2) Patient hx anesthesia problems: none Family hx anesthesia problems: none PMFSH Past Medical History Medical History (Updated 11/13/20 @ 09:02 by Juan Ordonez MD) Anxiety no longer on any medications Depression no longer taking medications. GERD (gastroesophageal reflux disease) Obesity Renal disease Surgical History Surgical History (Updated 11/11/20 @ 20:25 by Krista Landeros NP) History of bunionectomy Hx of tubal ligation Previous section X3 Family History Family History (Updated 11/11/20 @ 20:26 by Krista Landeros NP) Mother Asthma Hypertension Sibling Asthma Hypertension Sibling Asthma Father Chronic obstructive pulmonary disease He has been Congestive heart failure Social History Social History (Updated 11/11/20 @ 20:27 by Krista Landeros NP) Social History: the patient recently started a job at [employer] She is from her but now lives with a significant other. She has 3 children. She stated that her significant other are could be durable power environmental attorney for healthcare. Patient is a full code. She is a lifelong nonsmoker and rarely uses alcohol. She denies any marijuana or illicit drugs. Smoking status: Never smoker Alcohol intake: unknown Substance use: never Substance use type: does not use Gender identity (if verbalized by the patient): Female Sexual Orientation (if Verbalized by the Patient): Straight or Heterosexual Spiritual care concerns: No Anes - Eval Final PreProcedure Day of Procedure 11/13/20 09:02 Patient weight: obese Heart: regular rate and rhythm Lungs: clear to auscultation and normal air movement Airway: Mallampati scale class II Neurological: alert and oriented Last oral intake: >/= 8 hours ASA classification: II Emergent: no Anesthetic plan: proceed Anesthesi
--- NOTE | 2020-11-13 09:05 | PC.NURSE ---
To OR per bed, IV saline locked. Report given to Rach. SBAR and consent sent with chart.
[2020-11-13] MEDS: LACTATED RINGERS 1,000 ML 30 ML IV CONT (09:32)
--- NOTE | 2020-11-13 09:49 | PM.IMHP ---
H&P: HPI History of Present Illness Date/Time: 11/13/20 09:49 Chief Complaint: Right-sided odontogenic infection/abscess Narrative: Carmen Bullard is a 40 year old female with right-sided odontogenic infection that I was unable to drink transorally. Repeat imaging demonstrates a mildly worsening subperiosteal abscess and right-sided submandibular cellulitis. The patient's white count has also worsened in the past 24 hours. Review of Systems Constitutional: Constitutional: Denies fatigue, Denies fever(s) and Denies lethargy Eyes: Eyes: Denies blurry vision and Denies change in vision ENT: Reports as per HPI Cardiovascular: Cardiovascular: Denies chest pain Respiratory: Respiratory: Denies cough Endocrine: Endocrine: Denies fatigue Hematologic/Lymphatic: Hematologic/Lymphatic: Denies easy bleeding, Denies easy bruising and Denies lymphadenopathy Allergic/Immunologic: Allergic/Immunologic: Denies seasonal rhinorrhea PMFSH Past Medical History Medical History (Updated 11/13/20 @ 09:02 by Juan Ordonez MD) Anxiety no longer on any medications Depression no longer taking medications. GERD (gastroesophageal reflux disease) Obesity Renal disease Surgical History Surgical History (Updated 11/11/20 @ 20:25 by Krista Landeros NP) History of bunionectomy Hx of tubal ligation Previous section X3 Family History Family History (Updated 11/11/20 @ 20:26 by Krista Landeros NP) Mother Asthma Hypertension Sibling Asthma Hypertension Sibling Asthma Father Chronic obstructive pulmonary disease He has been Congestive heart failure Social History Social History (Updated 11/11/20 @ 20:27 by Krista Landeros NP) Social History: the patient recently started a job at [employer]. She is from her but now lives with a significant other. She has 3 children. She stated that her significant other are could be durable power litigation attorney for healthcare. Patient is a full code. She is a lifelong nonsmoker and rarely uses alcohol. She denies any marijuana or illicit drugs. Smoking status: Never smoker Alcohol intake: unknown Substance use: never Substance use type: does not use Gender identity (if verbalized by the patient): Female Sexual Orientation (if Verbalized by the Patient): Straight or Heterosexual Spiritual care concerns: No Meds Home Medications and Allergies Home Medications Medication Instructions Recorded Confirmed Type hydrocodone-acetaminophen [[place]] 1 tablet PO Q8H PRN #10 tablet 11/08/20 11/11/20 Rx ibuprofen 800 mg PO TID PRN #30 tablet 11/08/20 11/11/20 Rx penicillin V potassium 500 mg PO Q8H #30 tablet 11/08/20 11/11/20 Rx Allergies Allergy/AdvReac Type Severity Reaction Status Date / Time shellfish derived Allergy Swelling Verified 11/11/20 10:05 of Lip/Tongue/Throat WASP AdvReac Severe Swelling Uncoded 11/11/20 10:05 Vital Signs Vital Signs - 24 hr 11/12/20 14:00 11/12/20 22:00 11/13/20 06:00 Temperature 36.7 C 36.8 C 36.2 C L Pulse Rate 113 H 87 82 Respiratory Rate 16 20 20 Blood Pressure 148/68 H 129/55 L 137/66 Pulse Oximetry 98 99 99 11/13/20 09:30 Temperature 36.1 C L Pulse Rate 89 Respiratory Rate 20 Blood Pressure 153/96 H Pulse Oximetry 100 Exam Const: General: cooperative, healthy appearing, comfortable, well developed and alert HENMT: Head: normal to inspection, normocephalic and atraumatic Ears: hearing grossly normal bilaterally, external ears normal, TM's normal bilaterally and EAC's normal General nose exam: Normal external nose present, Normal nares present, No nasal polyps present, Normal nasal mucous membranes and turbinates present and Normal septum present Face and sinus: normal facial exam Mouth: Yes Normal oral and palatal mucosa present, Yes lip normal, Yes tongue normal, Yes oropharynx normal and Yes moist mucous membranes Teeth and gi
--- NOTE | 2020-11-13 09:51 | WPDHPUPDATE1 ---
History and Physical Update Update Date/Time: 11/13/20 09:51 History and Physical has been reviewed, including an updated exam of the patient. There are NO changes in the patient's condition. Risks, benefits, and alternatives have been discussed and questions answered. Patient agrees to proceed with procedure.
[2020-11-13] MEDS: LIDO 1%/EPINEPHRINE 1:100,000 50 ML VIAL INFILTRATE (10:35)
--- NOTE | 2020-11-13 11:09 | PM.PROC ---
Procedure Note - Detailed Date of procedure: 11/13/20 Pre-op diagnosis: Facial cellulitis Right submandibular abscess Post-op diagnosis: same Procedure performed: Incision and drainage of right submandibular abscess via transcervical approach Description of procedure: The patient was correctly identified and consent was verified in the preoperative holding area. The patient was then brought to the operating room a time-out performed. General anesthesia was induced and endotracheal tube secured the patient's airway and taped to the left lower lip. Patient then prepped and draped the aforementioned procedure. 2 cc of 1% lidocaine with 1 to 521010 parts epinephrine was injected in the subcutaneous tissue deep to a pre drawn 4 cm cervical incision several cm below the angle/body of the right mandible. Fifteen blade was utilized to cut through the epidermis and dermis. Bovie electrocautery at a setting of 10 was utilized to dissect through the platysma. Blunt dissection was then carried superiorly towards the body of the mandible. Copious amounts of purulence or encountered. Blunt dissection occurred to break up any loculations which may be present. The wound was then copiously irrigated with antibiotic infused sterile normal saline. A [place]st drain was placed. The wound was closed minimally at its distal edges to decrease the scar appearance. Hemostasis was excellent and care of the patient was turned over to Anesthesiology. This marked end of the procedure. Of note several cultures were taken of the purulence and wound itself. I performed all dictated portions of the procedure. Anesthesia: GLMA Surgeon: Vitaly Ruffin MD Estimated blood loss (mL): 5 Drains: Yes Complications: No immediate complications Condition: stable Disposition: PACU
[2020-11-13] MEDS: fentaNYL CITRATE INJ (*CRX) 100 MCG/2 ML VIAL 25 MCG IV PUSH ×3 (11:18→11:31)
--- NOTE | 2020-11-13 12:21 | PC.NURSE ---
Returned from OR per bed. Report received from CARLTON King.
[2020-11-13] MEDS: HYDROcodone/acetaminophen (*CRX) 5-325 MG TABLET 1 TAB PO ×2 (13:36→19:38)
--- NOTE | 2020-11-13 16:09 | PM.IMPN ---
Progress Note: A&P Assessment and Plan (1) Sepsis: Code(s): A41.9 - Sepsis, unspecified organism Status: Acute Assessment and Plan: Patient met SEPSIS criteria in ED with tachycardia and leukocytosis; lactic acid WNL. Abscess suspected source. Vitals stable today.Tachycardia resolved quickly and Leukocytosis improving. BCx drawn and are negative to date Continue monitoring. Continue IV ABX. (2) Submandibular abscess: Code(s): K12.2 - Cellulitis and abscess of mouth Status: Acute Assessment and Plan: Patient with right 31st tooth with abscess that had spread. CT showed abnormal sub periosteal fluid collection adjacent to the right mandibular angle, consistent with abscess with prominent submandibular lymph node enlargement likely reactive. ENT was consulted, Dr. Beckman saw the patient on 11/12/2020 and performed an I&D at bedside 11/13/2020 patient had more fluctuance and Dr. Beckman took her to the OR an I and D of right submandibular abscess via transcervical approach. We will continue IV Unasyn at this time and Decadron which was recommended by ENT Cultures pending from I&D. Patient was switched to oral pain control after I&D and will continue monitoring Await further recommendations from ENT; appreciate input Continue supportive care; warm compress Monitor for improvement Daily labs Time Spent With Patient Time with patient: 25 - 35 minutes Subjective Date/time seen: 11/13/20 16:09 Interval history: Patient is a 40 yo F with history of anxiety, depression, and GERD, who is seen in follow up for subperiosteal (right mandibular) abscess. Date of service 11/13/2020: Patient reports feeling slightly better today overall but states she still had some hardening and swelling to her right neck and lower draw. Denies any fevers, chills, chest pain, shortness of breath, nausea, vomiting, abdominal pain, leg swelling, calf pain, headache or any other symptoms at this time. Review of Systems Review of Systems: All systems reviewed & are unremarkable except as noted in HPI and below Exam Narrative: Exam Narrative: General: 40-year-old woman sitting up in bed eating lunch. Appears comfortable. In no acute distress. Skin: Dressing in place to right upper neck and lower jaw, was not evaluated since she just got back from the OR with ENT. No jaundice or cyanosis. Good skin turgor. Neck: Full range of motion. Supple. Respiratory: Lungs are clear to auscultation bilaterally. No bony chest wall tenderness. Cardiovascular: The heart has a regular rate and rhythm without murmur. Lower extremities: No lower extremity edema. Distal pulses are easily palpated. No calf tenderness to palpation. Gastrointestinal: The abdomen is soft, nontender and nondistended with active bowel sounds. Psychiatric: Lucid and oriented. Memory intact. Neurologic: No focal deficits. Speech is clear. No facial drooping. Objective Data Vital Signs Vital Signs: Vital Signs - 24 hr 11/12/20 22:00 11/13/20 06:00 11/13/20 09:30 Temperature 98.3 F 97.2 F L 96.9 F L Pulse Rate 87 82 89 Respiratory Rate 20 20 20 Blood Pressure 129/55 L 137/66 153/96 H Pulse Oximetry 99 99 100 11/13/20 10:50 11/13/20 11:05 11/13/20 11:15 Temperature 96.8 F L Pulse Rate 69 91 93 Respiratory Rate 14 12 13 Blood Pressure 115/54 L 151/92 H 163/96 H Pulse Oximetry 94 98 95 11/13/20 11:25 11/13/20 11:40 11/13/20 11:50 Temperature Pulse Rate 87 81 83 Respiratory Rate 12 11 L 12 Blood Pressure 165/85 H 177/99 H 149/92 H Pulse Oximetry 95 95 95 11/13/20 12:05 Temperature Pulse Rate 78 Respiratory Rate 11 L Blood Pressure 146/83 H Pulse Oximetry 95 Intake/Output Intake/Output: Intake & Output 11/10/20 11/11/20 11/12/20 11/13/20 23:59 23:59 23:59 23:59 Intake Total 1300 2400 600 Output Total 2350 2400 Balance
--- NOTE | 2020-11-14 | ECHO_ITS ---
Patient Info Name: Carmen Bullard Age: 40 years : 1980 Gender: Female Ht: 66 in Wt: 196 lbs BSA: 2.06 m2 HR: 72 bpm BP: 145 / 78 mmHg Heart Rhythm: Sinus Rhythm Technical Quality: Fair Exam Date: 11/14/2020 11:46 AM Exam Location: [facility] Pulmonary Exam Room: 260 Patient Status: Inpatient Admit Date: 11/11/2020 Staff Ordering Physician: Debra Toussaint PA-C [employer] Operator: Sapphire Odell RDCS Attending Provider: Debra Toussaint PA-C Exam Type: CA echo doppler color flow Study Info Complete two-dimensional, color flow and Doppler transthoracic echocardiogram is performed. Summary 1. Normal left ventricular size with mild concentric hypertrophy. Good left ventricular systolic function with no segmental wall motion abnormalities. Ejection fraction is 65-70%. Normal diastolic function. 2. Complete two-dimensional, color flow and Doppler transthoracic echocardiogram is performed. 3. Left atrial chamber dimension is mildly enlarged. 4. There is mild eccentric and anteriorly directed mitral valve regurgitation. 5. There is trace aortic, tricuspid and pulmonic valve regurgitation. 6. No vegetations identified. 7. No pulmonary hypertension, estimated pulmonary arterial systolic pressure is 34 mmHg. 8. Normal sinus rhythm. Left Ventricle Left ventricular chamber dimension is normal. Left ventricular systolic function is normal, estimated at 65-70%. There is mildly increased left ventricular wall thickness. Left ventricular septal wall motion is normal. The left ventricular diastolic function is normal. Right Ventricle Right ventricular chamber dimension is normal. Right ventricular systolic function is normal. Left Atria Left atrial chamber dimension is mildly enlarged. Right Atria Right atrial chamber dimension is normal. Aortic Valve The aortic valve is trileaflet. There is no aortic valve sclerosis. There is no aortic valve stenosis. There is trace aortic, tricuspid and pulmonic valve regurgitation. Pulmonic Valve The pulmonic valve is normal. There is no pulmonic valve stenosis. There is trace pulmonic regurgitation. Mitral Valve The mitral valve has normal leaflets. There is no mitral valve stenosis. There is mild eccentric and anteriorly directed mitral valve regurgitation. Tricuspid Valve The tricuspid valve leaflets are normal. There is no significant tricuspid valve stenosis. There is trace tricuspid valve regurgitation. No pulmonary hypertension, estimated pulmonary arterial systolic pressure is 34 mmHg. Pericardium/Pleural The pericardium appears normal. There is no pericardial effusion. Inferior Vena Cava Normal inferior vena cava with >50% collapse upon inspiration consistent with Empty right atrial pressure, 10 mmHg. Aorta The aortic root size at the sinus of Valsalva is normal. The prox ascending aorta size is normal. Left Ventricular Outflow Tract Name Value Normal LVOT 2D LVOT Diameter 2.0 cm LVOT Doppler LVOT Peak Gradient 9 mmHg LVOT Mean Gradient 5 mmHg LVOT VTI
[2020-11-14 01:59] VITALS: BP 138/70; PULSE 71; RESP 20; TEMP 36.9; O2SAT 98
[2020-11-14] MEDS: AMPICILLIN SULB 3 GM/NS 100 ML 3 GM/100 ML VIAL IVPB ×4 (05:02→23:53)
[2020-11-14 05:41] LABS: Basophils Percent Auto 0.2 % (0.2-1.2); Eosinophils Absolute Auto 0.1 K/mm3 (0-0.3); Eosinophils Percent Auto 0.4 % (0-4.4); Hematocrit 30.6 % (37.0-47.0); Hemoglobin 9.3 g/dL (12.0-15.0); Immature Granulocyte Absolute 0.06 K/mm3 (0.00-0.031); Immature Granulocyte Percent A 0.5 % (0-0.5); Immature Platelet Fraction Pct 4.4 % (0.9-11.2); Lymphocytes Absolute Auto 4.46 K/mm3 (0.9-3.2); Lymphocytes Percent Auto 35.6 % (18.3-44.2); Mean Corpuscular HGB Conc 30.4 g/dl (32-36); Mean Corpuscular Hemoglobin 25.1 pg (26-34); Mean Corpuscular Volume 82.5 fl (80-100); Mean Platelet Volume 10.7 fl (7.4-10.4); Monocytes Absolute Auto 1.1 K/mm3 (0.1-0.6); Monocytes Percent Auto 8.9 % (2.6-8.5); Neutrophils Absolute Auto 6.8 K/mm3 (1.3-6.7); Neutrophils Percent Auto 54.4 % (45.5-73.1); Platelet Count Result 307 k/mm3 (150-375); Red Blood Count 3.71 M/mm3 (4.2-5.4); Red Cell Distribution Width 13.9 % (11.5-14.5); White Blood Count 12.5 K/mm3 (4.5-10.0)
[2020-11-14 05:51] LABS: Anion Gap 3 mmol/L (8-16); Blood Urea Nitrogen 26 mg/dL (7-17); Calcium 8.1 mg/dL (8.4-10.2); Carbon Dioxide 28 mmol/L (22-30); Chloride 104 mmol/L (98-107); Estimated CRCL calculation 93 ml/min; Estimated Glomerular Filt Rate > 60; Glucose 100 mg/dL (65-105); Potassium 4.4 mmol/L (3.4-5.0); Sodium 135 mmol/L (137-145)
[2020-11-14 06:00] VITALS: BP 136/72; PULSE 70; RESP 20; TEMP 36.1; O2SAT 98
[2020-11-14] MEDS: HYDROcodone/acetaminophen (*CRX) 5-325 MG TABLET 1 TAB PO ×4 (07:52→22:20)
--- NOTE | 2020-11-14 08:51 | WPDANESPN ---
Anes - Prog Note Post-Op Date/Time: 11/14/20 08:51 Cardiovascular status: normal Respiratory status: normal Airway patency: baseline Mental status: baseline Post-Op hydration status: normal Vital Signs: Last Vital Signs Temp 36.1 C L 11/14/20 06:00 Pulse 70 11/14/20 06:00 Resp 20 11/14/20 06:00 BP 136/72 11/14/20 06:00 Pulse Ox 98 11/14/20 06:00 Pain Score (VAS): 2 I/O: Intake & Output 11/13/20 11/14/20 11/14/20 23:59 07:59 15:59 Intake Total 890 800 Output Total 200 800 Balance 690 0 Laboratory Tests 11/14/20 05:13 11/14/20 05:13 11/14/20 11/14/20 05:13 05:13 WBC 12.5 H RBC 3.71 L Hgb 9.3 L Hct 30.6 L MCV 82.5 D MCH 25.1 L MCHC 30.4 L RDW 13.9 Plt Count 307 MPV 10.7 H Immature Gran % (Auto) 0.5 Neut % (Auto) 54.4 Lymph % (Auto) 35.6 [place] % (Auto) 8.9 H Eos % (Auto) 0.4 Baso % (Auto) 0.2 Lymph # (Auto) 4.[address] [place] [place] # (Auto) 1.1 H Eos # (Auto) 0.1 Baso # (Auto) 0.0 Abs Immat Gran (auto) 0.06 H Absolute Neuts (auto) 6.8 H Absolute Nucleated RBC 0.0 Nucleated RBC % 0.0 % Immature Plt Fraction 4.4 Sodium 135 L Potassium 4.4 Chloride 104 Carbon Dioxide 28 Anion Gap 3 L BUN 26 H D Creatinine 0.80 Estim Creat Clear Calc 93 Estimated GFR > 60 Glucose 100 Calcium 8.1 L Microbiology 11/13/20 10:31 Abscess Anaerobic Culture - Preliminary 11/13/20 10:32 Abscess Anaerobic Culture - Preliminary Post-procedural complaints: none Patient Feedback: Patient satisfied with anesthetic care.
[2020-11-14 10:00] VITALS: BP 140/71; PULSE 80; RESP 16; TEMP 35.7; O2SAT 98
--- NOTE | 2020-11-14 10:17 | PM.IMPN ---
Progress Note: A&P Assessment and Plan (1) Sepsis: Code(s): A41.9 - Sepsis, unspecified organism Status: Acute Assessment and Plan: Patient met SEPSIS criteria in ED with tachycardia and leukocytosis; lactic acid WNL. Abscess suspected source. Vitals stable today.Tachycardia resolved quickly and Leukocytosis improving. BCx drawn and are negative to date Continue monitoring. Continue IV ABX. (2) Submandibular abscess: Code(s): K12.2 - Cellulitis and abscess of mouth Status: Acute Assessment and Plan: Patient with right 31st tooth with abscess that had spread. CT showed abnormal sub periosteal fluid collection adjacent to the right mandibular angle, consistent with abscess with prominent submandibular lymph node enlargement likely reactive. ENT was consulted, Dr. Beckman saw the patient on 11/12/2020 and performed an I&D at bedside 11/13/2020 patient had more fluctuance and Dr. Beckman took her to the OR an I and D of right submandibular abscess via transcervical approach. 11/14/2020: Patient is feeling better today. Pending wound cultures from IN D yesterday. We will continue IV Unasyn at this time and Decadron which was recommended by ENT Cultures pending from I&D. Patient was switched to oral pain control after I&D and will continue monitoring Await further recommendations from ENT; appreciate input Continue supportive care; warm compress Monitor for improvement Daily labs Time Spent With Patient Time with patient: 25 - 35 minutes Subjective Date/time seen: 11/14/20 10:17 Interval history: Patient is a 40 yo F with history of anxiety, depression, and GERD, who is seen in follow up for subperiosteal (right mandibular) abscess. Date of service 11/14/2020: Patient reports feeling slightly better today overall but states she still had some hardening and swelling to her right neck and lower draw. Denies any fevers, chills, chest pain, shortness of breath, nausea, vomiting, abdominal pain, leg swelling, calf pain, headache or any other symptoms at this time. Review of Systems Review of Systems: All systems reviewed & are unremarkable except as noted in HPI and below Exam Narrative: Exam Narrative: General: 40-year-old woman laying in bed taking a nap. Appears comfortable. In no acute distress. Skin: Dressing in place to right upper neck and lower jaw, was not evaluated in will defer to ENT. No jaundice or cyanosis. Good skin turgor. Neck: Full range of motion. Supple. Respiratory: Lungs are clear to auscultation bilaterally. No bony chest wall tenderness. Cardiovascular: The heart has a regular rate and rhythm without murmur. Lower extremities: No lower extremity edema. Distal pulses are easily palpated. No calf tenderness to palpation. Gastrointestinal: The abdomen is soft, nontender and nondistended with active bowel sounds. Psychiatric: Lucid and oriented. Memory intact. Neurologic: No focal deficits. Speech is clear. No facial drooping. Objective Data Vital Signs Vital Signs: Vital Signs - 24 hr 11/13/20 10:50 11/13/20 11:05 11/13/20 11:15 Temperature 96.8 F L Pulse Rate 69 91 93 Respiratory Rate 14 12 13 Blood Pressure 115/54 L 151/92 H 163/96 H Pulse Oximetry 94 98 95 11/13/20 11:25 11/13/20 11:40 11/13/20 11:50 Temperature Pulse Rate 87 81 83 Respiratory Rate 12 11 L 12 Blood Pressure 165/85 H 177/99 H 149/92 H Pulse Oximetry 95 95 95 11/13/20 12:05 11/13/20 12:30 11/13/20 12:45 Temperature 96.6 F L 97.0 F L Pulse Rate 78 87 88 Respiratory Rate 11 L 16 16 Blood Pressure 146/83 H 150/88 H 151/93 H Pulse Oximetry 95 98 95 11/13/20 13:15 11/13/20 14:00 11/13/20 18:00 Temperature 97.3 F L 97.2 F L 96.7 F L Pulse Rate 86 102 H 85 Respiratory Rate 16 16 16 Blood Pressure 152/97 H 150/55 H 150/69 H Pulse Oximetry 99 97 98 11/13/20 22:00 11/14
[2020-11-14] MEDS: DOCUSATE SODIUM 100 MG CAPSULE PO ×2 (11:56→22:20)
--- NOTE | 2020-11-14 12:07 | PM.PNGS ---
Progress Note: A&P Assessment and Plan (1) Odontogenic infection of jaw: Code(s): M27.2 - Inflammatory conditions of jaws Status: Acute Assessment and Plan: Recommend palpation/warm compresses, patient can perform when awake. This will great assist the fluid to drain and prevent reaccumulation. Follow culture data for appropriate abx. (2) Submandibular abscess: Code(s): K12.2 - Cellulitis and abscess of mouth Status: Acute Subjective Subjective Date/Time Seen: 11/14/20 12:07 Pt reports improved pain. Overall feeling better. POD 1 s/p I and D of right sided submandibular odontogenic infection. WBC down to 12. Culture data pending. Exam Neck: Other: Continued edema and erythema, minimally improved. Purulence and serous fluid expressed from the wound. Drain in place. Objective Data Vital Signs Vital Signs: Vital Signs - 24 hr 11/13/20 12:30 11/13/20 12:45 11/13/20 13:15 Temperature 35.9 C L 36.1 C L 36.3 C L Pulse Rate 87 88 86 Respiratory Rate 16 16 16 Blood Pressure 150/88 H 151/93 H 152/97 H Pulse Oximetry 98 95 99 11/13/20 14:00 11/13/20 18:00 11/13/20 22:00 Temperature 36.2 C L 35.9 C L 36.2 C L Pulse Rate 102 H 85 70 Respiratory Rate 16 16 20 Blood Pressure 150/55 H 150/69 H 142/75 H Pulse Oximetry 97 98 98 11/14/20 01:59 11/14/20 06:00 11/14/20 10:00 Temperature 36.9 C 36.1 C L 35.7 C L Pulse Rate 71 70 80 Respiratory Rate 20 20 16 Blood Pressure 138/70 136/72 140/71 Pulse Oximetry 98 98 98 Intake/Output Intake/Output: Intake & Output 11/11/20 11/12/20 11/13/20 11/14/20 23:59 23:59 23:59 23:59 Intake Total 1300 2400 1730 1710 Output Total 2350 2600 1800 Balance 1300 50 -870 -90 Meds/Results Medications: Active Medications Generic Name Dose Route Start Last Admin Trade Name Freq PRN Reason Stop Dose Admin Acetaminophen 1,000 mg 11/13/20 13:10 Acetaminophen 500 Mg Tablet PO Q6H PRN Mild Pain (1-3) or Fever Hydrocodone Bitart/Acetaminophen 1 tab 11/13/20 13:10 11/14/20 07:52 Hydrocodone/Acetaminophen (*Crx) 5-325 Mg Tablet PO 1 tab Q4H PRN Administration Pain Rated 4-6 Hydrocodone Bitart/Acetaminophen 1 tab 11/13/20 13:10 Hydrocodone/Acetaminophen (*Crx) 7.5-325 Mg Tablet PO Q4H PRN Pain Rated 7-10 Docusate Sodium 100 mg 11/14/20 10:15 11/14/20 11:56 Docusate Sodium 100 Mg Capsule PO 100 mg Q12HR DEJA Administration Ampicillin Sodium/Sulbactam Sodium 3 gm in 100 mls @ 200 mls/hr 11/11/20 18:30 11/14/20 11:56 Unasyn 3 Gm/Ns 100 Ml IVPB 200 mls/hr Q6HR DEJA Administration Magnesium Citrate 150 ml 11/14/20 10:15 Magnesium Citrate 300 Ml Btl PO PRN PRN constipation Polyethylene Glycol 17 gm 11/14/20 10:15 Polyethylene Glycol 3350 17 Gm Powd.Pack PO QAM PRN Constipation Radiology Results: ITS Impressions Soft Tissue Neck CT 11/13/20 08:26 IMPRESSION: 1. Carious lesion and periapical lucencies involving tooth 31 with adjacent subperiosteal abscess without significant change and with inflammation of the overlying subcutaneous fat with mild worsening. Labs Labs: Laboratory Results - last 24 hr 11/14/20 11/14/20 05:13 05:13 WBC 12.5 H RBC 3.71 L Hgb 9.3 L Hct 30.6 L MCV 82.5 D MCH 25.1 L MCHC 30.4 L RDW 13.9 Plt Count 307 MPV 10.7 H Immature Gran % (Auto) 0.5 Neut % (Auto) 54.4 Lymph % (Auto) 35.6 [place] % (Auto) 8.9 H Eos % (Auto) 0.4 Baso % (Auto) 0.2 Lymph # (Auto) 4.46 H [place] # (Auto) 1.1 H Eos # (Auto) 0.1 Baso # (Auto) 0.0 Abs Immat Gran (auto) 0.06 H Absolute Neuts (auto) 6.8 H Absolute Nucleated RBC 0.0 Nucleated RBC % 0.0 % Immature Plt Fraction 4.4 Sodium 135 L Potassium 4.4 Chloride 104 Carbon Dioxide 28 Anion Gap 3 L BUN 26 H D Creatinine 0.80 Estim Creat Clear Calc 93 Estimated GFR > 60 Glucose 100 Calcium 8.1 L Quality
[2020-11-14 14:00] VITALS: BP 148/81; PULSE 88; RESP 20; TEMP 35.9; O2SAT 98
--- NOTE | 2020-11-14 14:19 | PC.NURSE ---
Patient transferred to room 218. Report given to CARLTON Tang.
--- NOTE | 2020-11-14 14:28 | ADMGEN ---
This patient, Carmen Bullard, was admitted to [facility] Room 218-02. Patient oriented to hospital policies and general routines including ID bracelet, bed and alarms, visiting hours, pain management, procedures, bathroom and other care routines, personal items, smoking policy, room service/diet, and visiting hours. Information on how to activate the Rapid Response Team has been discussed. Patient is encouraged to report perceived risks to care and to ask questions if they do not understand what they are told or what they should do.
[2020-11-14 16:00] VITALS: BP 148/81; PULSE 88; RESP 20; TEMP 35.9; O2SAT 98
[2020-11-14 19:55] VITALS: BP 150/97; PULSE 87; RESP 20; TEMP 36; O2SAT 99
[2020-11-15 04:54] VITALS: BP 127/69; PULSE 74; RESP 20; TEMP 36; O2SAT 100
[2020-11-15 04:58] LABS: Basophils Absolute Auto 0.1 K/mm3 (0.0-0.1); Basophils Percent Auto 0.4 % (0.2-1.2); Eosinophils Absolute Auto 0.4 K/mm3 (0-0.3); Eosinophils Percent Auto 3.6 % (0-4.4); Hematocrit 33.8 % (37.0-47.0); Hemoglobin 10.4 g/dL (12.0-15.0); Immature Granulocyte Absolute 0.12 K/mm3 (0.00-0.031); Lymphocytes Absolute Auto 4.73 K/mm3 (0.9-3.2); Lymphocytes Percent Auto 38.4 % (18.3-44.2); Mean Corpuscular HGB Conc 30.8 g/dl (32-36); Mean Corpuscular Hemoglobin 24.9 pg (26-34); Mean Corpuscular Volume 81.1 fl (80-100); Mean Platelet Volume 9.8 fl (7.4-10.4); Monocytes Absolute Auto 0.9 K/mm3 (0.1-0.6); Monocytes Percent Auto 7.4 % (2.6-8.5); Neutrophils Absolute Auto 6.1 K/mm3 (1.3-6.7); Neutrophils Percent Auto 49.2 % (45.5-73.1); Platelet Count Result 344 k/mm3 (150-375); Red Blood Count 4.17 M/mm3 (4.2-5.4); Red Cell Distribution Width 13.5 % (11.5-14.5); White Blood Count 12.3 K/mm3 (4.5-10.0)
[2020-11-15 05:12] LABS: CRP 1.2 mg/dL (<1.0)
[2020-11-15] MEDS: AMPICILLIN SULB 3 GM/NS 100 ML 3 GM/100 ML VIAL IVPB ×2 (05:17→12:17)
[2020-11-15] MEDS: HYDROcodone/acetaminophen (*CRX) 5-325 MG TABLET 1 TAB PO ×2 (07:46→12:45)
[2020-11-15] MEDS: DOCUSATE SODIUM 100 MG CAPSULE PO ×2 (07:47→22:15)
[2020-11-15 09:17] VITALS: RESP 20; O2SAT 100
[2020-11-15 14:00] VITALS: BP 137/59; PULSE 80; RESP 20; TEMP 36.3; O2SAT 96
--- NOTE | 2020-11-15 14:33 | PM.IMPN ---
Progress Note: A&P Assessment and Plan (1) Sepsis: Code(s): A41.9 - Sepsis, unspecified organism Status: Acute Assessment and Plan: Patient met SEPSIS criteria in ED with tachycardia and leukocytosis; lactic acid WNL. Abscess suspected source. Vitals stable today.Tachycardia resolved quickly and Leukocytosis improving. BCx drawn and are negative to date Continue monitoring. Continue IV ABX. (2) Submandibular abscess: Code(s): K12.2 - Cellulitis and abscess of mouth Status: Acute Assessment and Plan: Patient with right 31st tooth with abscess that had spread. CT showed abnormal sub periosteal fluid collection adjacent to the right mandibular angle, consistent with abscess with prominent submandibular lymph node enlargement likely reactive. ENT was consulted, Dr. Beckman saw the patient on 11/12/2020 and performed an I&D at bedside 11/13/2020 patient had more fluctuance and Dr. Beckman took her to the OR an I and D of right submandibular abscess via transcervical approach. 11/14/2020: Patient is feeling better today. Pending wound cultures from I&D yesterday. 11/15/2020: ENT concerned for area near edge of the drain with fluctuance and he has plans to take patient back to the OR for repeat I&D tomorrow. Also discussed with switching Unasyn to IV clindamycin at this time with ENT. IV Unasyn #5, D/c and Start IV Clindamycin Day #1 Abscess Cultures show preliminary report from anaerobic bottle with normal oral nixon. Final results Still pending. Patient was switched to oral pain control after I&D and will continue monitoring Await further recommendations from ENT; appreciate input Continue supportive care; warm compress Monitor for improvement Daily labs (3) Murmur: Code(s): R01.1 - Cardiac murmur, unspecified Status: Acute Assessment and Plan: On examination the patient was found to have a murmur at her left 2nd intercostal space and she denied any history of murmur in the past. Due to her current infection and possible risks of endocarditis I ordered an echocardiogram to be completed. Echocardiogram showed no signs of endocarditis, normal EF 65%, normal diastolic dysfunction. Mild concentric hypertrophy. Will need follow-up with primary care provider after discharge (4) Elevated blood pressure reading: Code(s): R03.0 - Elevated blood-pressure reading, without diagnosis of hypertension Status: Acute Assessment and Plan: Have been intermittently high while here which could be secondary to pain from her abscess. In the last 36 hours her blood pressure has ranged between 127/69 and to 150/69. Patient's echo showed some mild LVH which could be secondary to uncontrolled high blood pressure. At this time I will educate the patient on exercise, weight loss, monitoring her blood pressure at home after discharge and have her follow-up with her primary care provider to see if she continues to have elevated blood pressure she may need to be started on a medication for this. Time Spent With Patient Time with patient: 25 - 35 minutes Subjective Date/time seen: 11/15/20 14:33 Interval history: Patient is a 40 yo F with history of anxiety, depression, and GERD, who is seen in follow up for subperiosteal (right mandibular) abscess. Date of service 11/15/2020: Patient reports some soreness and fullness to her lower right jaw. She does have some drainage from the drain that is currently in place. She does feel hot and cold at times, but does not think she has a fever. Denies any chest pain, shortness of breath, nausea, vomiting, abdominal pain, leg swelling, calf pain, headache or any other symptoms at this time. Review of Systems Review of Systems: All systems reviewed & are unremarkable e
--- NOTE | 2020-11-15 15:18 | WPDANESEPPF ---
Anes - Initial Pre Proc Eval Procedure: Operation Date: 11/13/20 10:00 Proposed Procedures p Incision and Drainage Right Submandibular Abscess - Vitaly Ruffin MD Operation Date: 11/16/20 17:00 Proposed Procedures p Incision and Drainage Right Neck Abscecss - Vitaly Ruffin MD Date/Time: 11/15/20 15:18 Surgeon: Debra Toussaint PA-C Pre Op Diagnosis: Facial cellulitis Patient Data Age: 40 Gender: F Height: 1.68 m Weight: 89 kg Last Vital Signs Temp 36.3 C L 11/15/20 14:00 Pulse 80 11/15/20 14:00 Resp 20 11/15/20 14:00 BP 137/59 L 11/15/20 14:00 Pulse Ox 96 11/15/20 14:00 Allergies Allergy/AdvReac Type Severity Reaction Status Date / Time shellfish derived Allergy Swelling Verified 11/11/20 10:05 of Lip/Tongue/Throat WASP AdvReac Severe Swelling Uncoded 11/11/20 10:05 Home Medications Medication Instructions Recorded Confirmed Type hydrocodone-acetaminophen [[place]] 1 tablet PO Q8H PRN #10 tablet 11/08/20 11/13/20 Rx ibuprofen 800 mg PO TID PRN #30 tablet 11/08/20 11/13/20 Rx penicillin V potassium 500 mg PO Q8H #30 tablet 11/08/20 11/13/20 Rx Laboratory Tests 11/15/20 11/15/20 04:36 04:36 WBC 12.3 K/mm3 H K/mm3 (4.5-10.0) RBC 4.17 M/mm3 L M/mm3 (4.2-5.4) Hgb 10.4 g/dL L g/dL (12.0-15.0) Hct 33.8 % L % (37.0-47.0) MCV 81.1 fl fl (80-100) MCH 24.9 pg L pg (26-34) MCHC 30.8 g/dl L g/dl (32-36) RDW 13.5 % % (11.5-14.5) Plt Count 344 k/mm3 k/mm3 (150-375) MPV 9.8 fl fl (7.4-10.4) Immature Gran % (Auto) 1.0 % H % (0-0.5) Neut % (Auto) 49.2 % % (45.5-73.1) Lymph % (Auto) 38.4 % % (18.3-44.2) [place] % (Auto) 7.4 % % (2.6-8.5) Eos % (Auto) 3.6 % % (0-4.4) Baso % (Auto) 0.4 % % (0.2-1.2) Lymph # (Auto) 4.73 K/mm3 H K/mm3 (0.9-3.2) [place] # (Auto) 0.9 K/mm3 H K/mm3 (0.1-0.6) Eos # (Auto) 0.4 K/mm3 H K/mm3 (0-0.3) Baso # (Auto) 0.1 K/mm3 K/mm3 (0.0-0.1) Abs Immat Gran (auto) 0.12 K/mm3 H K/mm3 (0.00-0.031) Absolute Neuts (auto) 6.1 K/mm3 K/mm3 (1.3-6.7) Absolute Nucleated RBC 0.0 K/mm3 K/mm3 (0.0-0.012) Nucleated RBC % 0.0 % % (0.0-0.2) C-Reactive Protein 1.2 mg/dL H mg/dL (<1.0) Patient hx anesthesia problems: none Family hx anesthesia problems: none [facility] Past Medical History Medical History (Updated 11/15/20 @ 14:43 by Debra Toussaint PA-C) Anxiety no longer on any medications Depression no longer taking medications. GERD (gastroesophageal reflux disease) Obesity Renal disease Surgical History Surgical History (Updated 11/11/20 @ 20:25 by Krista Landeros NP) History of bunionectomy Hx of tubal ligation Previous section X3 Family History Family History (Updated 11/11/20 @ 20:26 by Krista Landeros NP) Mother Asthma Hypertension Sibling Asthma Hypertension Sibling Asthma Father Chronic obstructive pulmonary disease He has been Congestive heart failure Social History Social History (Updated 11/11/20 @ 20:27 by Krista Landeros NP) Social History: the patient recently started a job at [employer]. She is from her but now lives with a significant other. She has 3 children. She stated that her significant other are could be durable power estate attorney for healthcare. Patient is a full code. She is a lifelong nonsmoker and rarely uses alcohol. She denies any marijuana or illicit drugs. Smoking status: Never smoker Alcohol intake: unknown Substance use: never Substance use type: does not use Gender identity (if verbalized by the patient): Female Sexual Orientation (if Verbalized by the Patient): Straight or Heterosexual Spiritual care concerns: No Anes - Eval Final PreProcedure Day of Procedure 11/15/20 15:18 Patient weight: obese Heart
--- NOTE | 2020-11-15 16:00 | PM.PNGS ---
Progress Note: A&P Assessment and Plan (1) Odontogenic infection of jaw: Code(s): M27.2 - Inflammatory conditions of jaws Status: Acute Assessment and Plan: discussed with hospitalist. Continue trending white blood cell count stable today with an increased shift. Exam is worse today with increased fluctuance anteriorly. Plan tomorrow for OR washout and repeat incision and drainage of right abscess. Recommend changing antibiotic from Unasyn to clindamycin IV. Please make NPO at midnight. (2) Submandibular abscess: Code(s): K12.2 - Cellulitis and abscess of mouth Status: Acute Subjective Subjective Date/Time Seen: 11/15/20 16:00 Patient reports stable symptoms Exam Neck: Other: increased fluctuance anteriorly with skin changes stable edema more posteriorly drain appears patent Objective Data Vital Signs Vital Signs: Vital Signs - 24 hr 11/14/20 19:55 11/15/20 04:54 11/15/20 09:17 Temperature 36.0 C L 36.0 C L Pulse Rate 87 74 Respiratory Rate 20 20 20 Blood Pressure 150/97 H 127/69 Pulse Oximetry 99 100 100 11/15/20 14:00 Temperature 36.3 C L Pulse Rate 80 Respiratory Rate 20 Blood Pressure 137/59 L Pulse Oximetry 96 Intake/Output Intake/Output: Intake & Output 11/12/20 11/13/20 11/14/20 11/15/20 23:59 23:59 23:59 23:59 Intake Total 2400 1730 3130 1220 Output Total 2350 2600 2500 1900 Balance 50 -870 630 -680 Meds/Results Medications: Active Medications Generic Name Dose Route Start Last Admin Trade Name Freq PRN Reason Stop Dose Admin Acetaminophen 1,000 mg 11/13/20 13:10 Acetaminophen 500 Mg Tablet PO Q6H PRN Mild Pain (1-3) or Fever Hydrocodone Bitart/Acetaminophen 1 tab 11/13/20 13:10 11/15/20 12:45 Hydrocodone/Acetaminophen (*Crx) 5-325 Mg Tablet PO 1 tab Q4H PRN Administration Pain Rated 4-6 Hydrocodone Bitart/Acetaminophen 1 tab 11/13/20 13:10 Hydrocodone/Acetaminophen (*Crx) 7.5-325 Mg Tablet PO Q4H PRN Pain Rated 7-10 Docusate Sodium 100 mg 11/14/20 10:15 11/15/20 07:47 Docusate Sodium 100 Mg Capsule PO 100 mg Q12HR DEJA Administration Fentanyl Citrate 25 mcg 11/15/20 14:54 Fentanyl Citrate Inj (*Crx) 100 Mcg/2 Ml Vial IV PUSH Q2M PRN Pain Hydromorphone HCl 0.25 mg 11/15/20 14:54 Hydromorphone Hcl Inj (*Crx) 1 Mg/Ml Syr IV PUSH Q5M PRN Pain Clindamycin Phosphate 900 mg in 50 mls @ 50 mls/hr 11/15/20 15:00 Cleocin 900 Mg/D5w 50 Ml IVPB Q8HR DEJA Lactated Ringer's 1,000 mls @ 30 mls/hr 11/15/20 14:55 Lr - Lactated Ringers Iv IV CONT .Q24H DEJA Lactated Ringer's 1,000 mls @ 30 mls/hr 11/15/20 14:55 Lr - Lactated Ringers Iv IV CONT .Q24H DEJA Magnesium Citrate 150 ml 11/14/20 10:15 Magnesium Citrate 300 Ml Btl PO PRN PRN constipation Ondansetron HCl 4 mg 11/15/20 14:54 Ondansetron Inj 4 Mg/2 Ml Vial IV PUSH ONCE PRN Nausea Oxycodone HCl 5 mg 11/15/20 14:54 Oxycodone Hcl (*Crx) 5 Mg Tab Ir PO ONCE PRN Pain Polyethylene Glycol 17 gm 11/14/20 10:15 Polyethylene Glycol 3350 17 Gm Powd.Pack PO QAM PRN Constipation Radiology Results: ITS Impressions Soft Tissue Neck CT 11/13/20 08:26 IMPRESSION: 1. Carious lesion and periapical lucencies involving tooth 31 with adjacent subperiosteal abscess without significant change and with inflammation of the overlying subcutaneous fat with mild worsening. Labs Labs: Laboratory Results - last 24 hr 11/15/20 11/15/20 04:36 04:36 WBC 12.3 H RBC 4.17 L Hgb 10.4 L Hct 33.8 L MCV 81.1 MCH 24.9 L MCHC 30.8 L RDW 13.5 Plt Count 344 MPV 9.8 Immature Gran % (Auto) 1.0 H Neut % (Auto) 49.2 Lymph % (Auto) 38.4 [place] % (Auto) 7.4 Eos % (Auto) 3.6 Baso % (Auto) 0.4 Lymph # (Auto) 4.73 H [place] # (Auto) 0.9 H Eos # (Auto) 0.4 H Baso # (Auto) 0.1 Abs Immat Gra
[2020-11-15] MEDS: CLINDAMYCIN 900 MG/D5W 50 ML 900 MG/50 ML PIGGYBACK 50 MG IVPB ×2 (16:04→22:17)
[2020-11-15 21:30] VITALS: BP 142/88; PULSE 90; RESP 14; TEMP 36.9; O2SAT 99
[2020-11-15] MEDS: HYDROcodone/acetaminophen (*CRX) 7.5-325 MG TABLET 1 TAB PO (22:15)
[2020-11-16] VITALS (9 sets, daily range): BP systolic 109–140; BP diastolic 52–80; PULSE 75–96; RESP 12–20; TEMP 36.1–37.1; O2SAT 96–99
[2020-11-16 04:50] LABS: Hematocrit 32.5 % (37.0-47.0); Hemoglobin 10.4 g/dL (12.0-15.0); Mean Corpuscular Hemoglobin 24.8 pg (26-34); Mean Corpuscular Volume 77.6 fl (80-100); Mean Platelet Volume 9.8 fl (7.4-10.4); Platelet Count Result 332 k/mm3 (150-375); Red Blood Count 4.19 M/mm3 (4.2-5.4); Red Cell Distribution Width 13.2 % (11.5-14.5); White Blood Count 13.1 K/mm3 (4.5-10.0)
[2020-11-16 05:04] LABS: CRP 1.1 mg/dL (<1.0)
[2020-11-16] MEDS: CLINDAMYCIN 900 MG/D5W 50 ML 900 MG/50 ML PIGGYBACK 50 MG IVPB ×3 (05:38→21:12)
--- NOTE | 2020-11-16 12:22 | PM.IMPN ---
Progress Note: A&P Assessment and Plan (1) Sepsis: Code(s): A41.9 - Sepsis, unspecified organism Status: Acute Assessment and Plan: Patient met SEPSIS criteria in ED with tachycardia and leukocytosis; lactic acid WNL. Abscess suspected source. Vitals stable today.Tachycardia resolved quickly and Leukocytosis improving. BCx drawn and are negative to date Continue monitoring. Continue IV ABX. (2) Submandibular abscess: Code(s): K12.2 - Cellulitis and abscess of mouth Status: Acute Assessment and Plan: Patient with right 31st tooth with abscess that had spread. CT showed abnormal sub periosteal fluid collection adjacent to the right mandibular angle, consistent with abscess with prominent submandibular lymph node enlargement likely reactive. ENT was consulted, Dr. Beckman saw the patient on 11/12/2020 and performed an I&D at bedside 11/13/2020 patient had more fluctuance and Dr. Beckman took her to the OR an I and D of right submandibular abscess via transcervical approach. 11/14/2020: Patient is feeling better today. Pending wound cultures from I&D yesterday. 11/15/2020: ENT concerned for area near edge of the drain with fluctuance and he has plans to take patient back to the OR for repeat I&D tomorrow. Also discussed with switching Unasyn to IV clindamycin at this time with ENT. IV Unasyn #5, D/c and Start IV Clindamycin Day #1 11/16/2020: ENT is to be taken to the OR this evening. Continue with IV clindamycin day #2. Talked with ENT who has plans to possibly discharge tomorrow if it is looking better on oral antibiotics for 7 days in follow-up in the office next week. Abscess Cultures show preliminary report from anaerobic bottle with normal oral nixon. Final results Still pending. Patient was switched to oral pain control after I&D and will continue monitoring Await further recommendations from ENT; appreciate input Continue supportive care; warm compress Monitor for improvement Daily labs (3) Murmur: Code(s): R01.1 - Cardiac murmur, unspecified Status: Acute Assessment and Plan: On examination the patient was found to have a murmur at her left 2nd intercostal space and she denied any history of murmur in the past. Due to her current infection and possible risks of endocarditis I ordered an echocardiogram to be completed. Echocardiogram showed no signs of endocarditis, normal EF 65%, normal diastolic dysfunction. Mild concentric hypertrophy. Will need follow-up with primary care provider after discharge (4) Elevated blood pressure reading: Code(s): R03.0 - Elevated blood-pressure reading, without diagnosis of hypertension Status: Acute Assessment and Plan: Have been intermittently high while here which could be secondary to pain from her abscess. In the last 36 hours her blood pressure has ranged between 137/59 and to 142/88. Patient's echo showed some mild LVH which could be secondary to uncontrolled high blood pressure. At this time I will educate the patient on exercise, weight loss, monitoring her blood pressure at home after discharge and have her follow-up with her primary care provider to see if she continues to have elevated blood pressure she may need to be started on a medication for this. Time Spent With Patient Time with patient: 25 - 35 minutes Subjective Date/time seen: 11/16/20 12:22 Interval history: Patient is a 40 yo F with history of anxiety, depression, and GERD, who is seen in follow up for subperiosteal (right mandibular) abscess. Date of service 11/16/2020: Patient reports some soreness and fullness to her lower right jaw, rated 6/10 at this time. She has not had any pain meds since last night since she is NPO prior to her procedure. She does feel
[2020-11-16] MEDS: MORPHINE SULFATE (*CRX) 2 MG/ML INJ IV PUSH (13:03)
--- NOTE | 2020-11-16 13:31 | PM.PNGS ---
Progress Note: A&P Assessment and Plan (1) Odontogenic infection of jaw: Code(s): M27.2 - Inflammatory conditions of jaws Status: Acute Assessment and Plan: Plan for OR re I and D of right submandibular odontogenic abscess. (2) Submandibular abscess: Code(s): K12.2 - Cellulitis and abscess of mouth Status: Acute Subjective Subjective Date/Time Seen: 11/16/20 13:31 Pt reports contineued pain/stable. WBC increased to 13. No culture data. Pt switched to clinda per hospitalist. Exam Neck: Other: increased fluctuance on right Objective Data Vital Signs Vital Signs: Vital Signs - 24 hr 11/15/20 14:00 11/15/20 21:30 11/16/20 04:45 Temperature 36.3 C L 36.9 C 37.1 C Pulse Rate 80 90 75 Respiratory Rate 20 14 14 Blood Pressure 137/59 L 142/88 H 130/80 Pulse Oximetry 96 99 96 Intake/Output Intake/Output: Intake & Output 11/13/20 11/14/20 11/15/20 11/16/20 23:59 23:59 23:59 23:59 Intake Total 1730 3130 1560 700 Output Total 2600 2500 3900 2600 Balance -870 630 -2340 -1900 Meds/Results Medications: Active Medications Generic Name Dose Route Start Last Admin Trade Name Freq PRN Reason Stop Dose Admin Acetaminophen 1,000 mg 11/13/20 13:10 Acetaminophen 500 Mg Tablet PO Q6H PRN Mild Pain (1-3) or Fever Hydrocodone Bitart/Acetaminophen 1 tab 11/13/20 13:10 11/15/20 12:45 Hydrocodone/Acetaminophen (*Crx) 5-325 Mg Tablet PO 1 tab Q4H PRN Administration Pain Rated 4-6 Hydrocodone Bitart/Acetaminophen 1 tab 11/13/20 13:10 11/15/20 22:15 Hydrocodone/Acetaminophen (*Crx) 7.5-325 Mg Tablet PO 1 tab Q4H PRN Administration Pain Rated 7-10 Docusate Sodium 100 mg 11/14/20 10:15 11/16/20 13:00 Docusate Sodium 100 Mg Capsule PO Not Given Q12HR DEJA Fentanyl Citrate 25 mcg 11/15/20 14:54 Fentanyl Citrate Inj (*Crx) 100 Mcg/2 Ml Vial IV PUSH Q2M PRN Pain Hydromorphone HCl 0.25 mg 11/15/20 14:54 Hydromorphone Hcl Inj (*Crx) 1 Mg/Ml Syr IV PUSH Q5M PRN Pain Clindamycin Phosphate 900 mg in 50 mls @ 50 mls/hr 11/15/20 15:00 11/16/20 06:35 Cleocin 900 Mg/D5w 50 Ml IVPB Infused Q8HR [facility] Infusion Lactated Ringer's 1,000 mls @ 30 mls/hr 11/15/20 14:55 Lr - Lactated Ringers Iv IV CONT .Q24H DEJA Lactated Ringer's 1,000 mls @ 30 mls/hr 11/15/20 14:55 Lr - Lactated Ringers Iv IV CONT .Q24H DEJA Magnesium Citrate 150 ml 11/14/20 10:15 Magnesium Citrate 300 Ml Btl PO PRN PRN constipation Morphine Sulfate 2 mg 11/16/20 12:21 11/16/20 13:03 Morphine Sulfate (*Crx) 2 Mg/Ml Inj IV PUSH 2 mg Q4H PRN Administration Pain Rated 7-10 Ondansetron HCl 4 mg 11/15/20 14:54 Ondansetron Inj 4 Mg/2 Ml Vial IV PUSH ONCE PRN Nausea Ondansetron HCl 4 mg 11/16/20 12:21 Ondansetron Inj 4 Mg/2 Ml Vial IV PUSH Q4H PRN Nausea And Vomiting Oxycodone HCl 5 mg 11/15/20 14:54 Oxycodone Hcl (*Crx) 5 Mg Tab Ir PO ONCE PRN Pain Polyethylene Glycol 17 gm 11/14/20 10:15 Polyethylene Glycol 3350 17 Gm Powd.Pack PO QAM PRN Constipation Saccharomyces Boulardii 250 mg 11/16/20 17:00 Saccharomyces Boulardii 250 Mg Capsule PO BID [facility] Radiology Results: ITS Impressions Soft Tissue Neck CT 11/13/20 08:26 IMPRESSION: 1. Carious lesion and periapical lucencies involving tooth 31 with adjacent subperiosteal abscess without significant change and with inflammation of the overlying subcutaneous fat with mild worsening. Labs Labs: Laboratory Results - last 24 hr 11/16/20 11/16/20 04:32 04:32 WBC 13.1 H RBC 4.19 L Hgb 10.4 L Hct 32.5 L MCV 77.6 L MCH 24.8 L MCHC 32.0 RDW 13.2 Plt Count 332 MPV 9.8 C-Reactive Protein 1.1 Quality VTE Prophylaxis VTE prophylaxis: mechanical ordered
--- NOTE | 2020-11-16 13:33 | PM.IMHP ---
H&P: HPI History of Present Illness Date/Time: 11/16/20 13:33 Chief Complaint: abscess Narrative: Carmen Bullard is a 40 year old female Presents for planned operative procedure. No new symptoms PMFSH Past Medical History Medical History (Updated 11/15/20 @ 14:43 by Debra Toussaint PA-C) Anxiety no longer on any medications Depression no longer taking medications. GERD (gastroesophageal reflux disease) Obesity Renal disease Surgical History Surgical History (Updated 11/11/20 @ 20:25 by Krista Landeros NP) History of bunionectomy Hx of tubal ligation Previous section X3 Family History Family History (Updated 11/11/20 @ 20:26 by Krista Landeros NP) Mother Asthma Hypertension Sibling Asthma Hypertension Sibling Asthma Father Chronic obstructive pulmonary disease He has been Congestive heart failure Social History Social History (Updated 11/11/20 @ 20:27 by Krista Landeros NP) Social History: the patient recently started a job at [employer]. She is from her but now lives with a significant other. She has 3 children. She stated that her significant other are could be durable power trademark attorney for healthcare. Patient is a full code. She is a lifelong nonsmoker and rarely uses alcohol. She denies any marijuana or illicit drugs. Smoking status: Never smoker Alcohol intake: unknown Substance use: never Substance use type: does not use Gender identity (if verbalized by the patient): Female Sexual Orientation (if Verbalized by the Patient): Straight or Heterosexual Spiritual care concerns: No Meds Home Medications and Allergies Home Medications Medication Instructions Recorded Confirmed Type hydrocodone-acetaminophen [[place]] 1 tablet PO Q8H PRN #10 tablet 11/08/20 11/13/20 Rx ibuprofen 800 mg PO TID PRN #30 tablet 11/08/20 11/13/20 Rx penicillin V potassium 500 mg PO Q8H #30 tablet 11/08/20 11/13/20 Rx Allergies Allergy/AdvReac Type Severity Reaction Status Date / Time shellfish derived Allergy Swelling Verified 11/11/20 10:05 of Lip/Tongue/Throat WASP AdvReac Severe Swelling Uncoded 11/11/20 10:05 Vital Signs Vital Signs - 24 hr 11/15/20 14:00 11/15/20 21:30 11/16/20 04:45 Temperature 36.3 C L 36.9 C 37.1 C Pulse Rate 80 90 75 Respiratory Rate 20 14 14 Blood Pressure 137/59 L 142/88 H 130/80 Pulse Oximetry 96 99 96 Exam Neck: Other: Erythematous edematous fluctuant right neck H&P: Results Labs Labs: Short CBC 11/16/20 Range/Units 04:32 WBC 13.1 H (4.5-10.0) K/mm3 Hgb 10.4 L (12.0-15.0) g/dL Hct 32.5 L (37.0-47.0) % Plt Count 332 (150-375) k/mm3 Assessment and Plan Assessment and plan (1) Odontogenic infection of jaw: Code(s): M27.2 - Inflammatory conditions of jaws Status: Acute Assessment and Plan: Plan is for the OR for re-incision and drainage of right submandibular odontogenic abscess possible transoral approach risks and benefits were discussed in great detail including damage to facial nerve need for further procedures failure to improve symptoms. (2) Submandibular abscess: Code(s): K12.2 - Cellulitis and abscess of mouth Status: Acute Quality VTE Prophylaxis VTE prophylaxis: mechanical ordered
--- NOTE | 2020-11-16 13:34 | WPDHPUPDATE1 ---
History and Physical Update Update Date/Time: 11/16/20 13:34 History and Physical has been reviewed, including an updated exam of the patient. There are NO changes in the patient's condition. Risks, benefits, and alternatives have been discussed and questions answered. Patient agrees to proceed with procedure.
[2020-11-16] MEDS: LACTATED RINGERS 1,000 ML 30 ML IV CONT (14:11)
--- NOTE | 2020-11-16 16:58 | P.OP_ITS ---
Procedure Note - Detailed Date of procedure: 11/16/20 Pre-op diagnosis: Facial cellulitis Right neck abscess Post-op diagnosis: same Procedure performed: Incision and drainage of right neck abscess Description of procedure: The patient is correctly identified and consent was verified in the preoperative holding area. The patient was then brought the operating room time-out was performed. General anesthesia was induced and endotracheal tube was secured the patient's airway and taped the left lower lip. The patient was then prepped and draped for the aforementioned procedure. A new collection of fluctuance was noted anterior and superior to the previous collection. The [place] was removed from the previous site and hemostat utilized to connect the 2 loculations with copious amounts of purulence noted. The decision was then made to incise the face for irrigation. Both wounds were copiously irrigated and a Mina inserted into each and sutured in place with a 3 0 interrupted nylon suture. Hemostasis was noted to be excellent. Care the patient was turned over to Anesthesiology. I performed all portions of this procedure. Of note new cultures were taken of the purulence. Anesthesia: GLMA Surgeon: Vitaly Ruffin MD Estimated blood loss (mL): 10 Drains: Yes Complications: No immediate complications Condition: stable Disposition: PACU
[2020-11-16] MEDS: HYDROcodone/acetaminophen (*CRX) 5-325 MG TABLET 1 TAB PO (18:30)
[2020-11-16] MEDS: DOCUSATE SODIUM 100 MG CAPSULE PO (21:07)
[2020-11-17] MEDS: HYDROcodone/acetaminophen (*CRX) 5-325 MG TABLET 1 TAB PO ×2 (02:24→09:52)
[2020-11-17 05:21] VITALS: BP 141/85; PULSE 72; RESP 18; TEMP 35.8; O2SAT 98
[2020-11-17 05:28] LABS: Basophils Absolute Auto 0.1 K/mm3 (0.0-0.1); Basophils Percent Auto 0.7 % (0.2-1.2); Eosinophils Absolute Auto 0.6 K/mm3 (0-0.3); Eosinophils Percent Auto 3.7 % (0-4.4); Hematocrit 33.7 % (37.0-47.0); Hemoglobin 10.7 g/dL (12.0-15.0); Immature Granulocyte Absolute 0.34 K/mm3 (0.00-0.031); Immature Granulocyte Percent A 2.1 % (0-0.5); Lymphocytes Absolute Auto 4.23 K/mm3 (0.9-3.2); Lymphocytes Percent Auto 26.4 % (18.3-44.2); Mean Corpuscular HGB Conc 31.8 g/dl (32-36); Mean Corpuscular Hemoglobin 24.5 pg (26-34); Mean Corpuscular Volume 77.3 fl (80-100); Mean Platelet Volume 10.2 fl (7.4-10.4); Monocytes Absolute Auto 1.2 K/mm3 (0.1-0.6); Monocytes Percent Auto 7.6 % (2.6-8.5); Neutrophils Absolute Auto 9.5 K/mm3 (1.3-6.7); Neutrophils Percent Auto 59.5 % (45.5-73.1); Platelet Count Result 339 k/mm3 (150-375); Red Blood Count 4.36 M/mm3 (4.2-5.4); Red Cell Distribution Width 13.4 % (11.5-14.5)
[2020-11-17] MEDS: CLINDAMYCIN 900 MG/D5W 50 ML 900 MG/50 ML PIGGYBACK 50 MG IVPB ×3 (05:54→20:46)
[2020-11-17] MEDS: SACCHAROMYCES BOULARDII 250 MG CAPSULE PO ×2 (09:52→17:55)
[2020-11-17] MEDS: DOCUSATE SODIUM 100 MG CAPSULE PO ×2 (09:52→20:40)
--- NOTE | 2020-11-17 10:02 | PM.PNGS ---
Progress Note: A&P Assessment and Plan (1) Submandibular abscess: Code(s): K12.2 - Cellulitis and abscess of mouth Status: Acute Assessment and Plan: Continue clinamycin, if wbc worsens recommend ID consult for appropriate antibiosis. Continue massage/compression. Please have the patient follow up with me on Thursday or Thursday of next week. Hold steroids for the time being. If wbc improves tomorrow and the patient clinically doesn't worsen, ok for dc from ENT standpoint. Thank you. [phone], please call/text with any questions. (2) Odontogenic infection of jaw: Code(s): M27.2 - Inflammatory conditions of jaws Status: Acute Subjective Subjective Date/Time Seen: 11/17/20 10:02 Overall the patient feels better. WBC increased from 13 to 16. Exam Neck: Other: Improved edema and erythema, persistent indurated edema more anteriorly. Objective Data Vital Signs Vital Signs: Vital Signs - 24 hr 11/16/20 14:00 11/16/20 14:22 11/16/20 16:39 Temperature 36.9 C 36.2 C L 36.1 C L Pulse Rate 84 91 89 Respiratory Rate 20 16 14 Blood Pressure 140/68 139/58 L 109/52 L Pulse Oximetry 98 97 97 11/16/20 16:45 11/16/20 17:00 11/16/20 17:15 Temperature Pulse Rate 89 96 90 Respiratory Rate 14 12 15 Blood Pressure 128/71 135/78 135/64 Pulse Oximetry 99 96 96 11/16/20 17:30 11/16/20 22:00 11/17/20 05:21 Temperature 36.2 C L 35.8 C L Pulse Rate 86 81 72 Respiratory Rate 12 18 18 Blood Pressure 133/65 140/52 L 141/85 H Pulse Oximetry 96 99 98 Intake/Output Intake/Output: Intake & Output 11/14/20 11/15/20 11/16/20 11/17/20 23:59 23:59 23:59 23:59 Intake Total 3130 1560 1100 990 Output Total 2500 3900 4050 1550 Balance 042 -5420 -2950 -560 Meds/Results Medications: Active Medications Generic Name Dose Route Start Last Admin Trade Name Freq PRN Reason Stop Dose Admin Acetaminophen 1,000 mg 11/13/20 13:10 Acetaminophen 500 Mg Tablet PO Q6H PRN Mild Pain (1-3) or Fever Hydrocodone Bitart/Acetaminophen 1 tab 11/13/20 13:10 11/17/20 09:52 Hydrocodone/Acetaminophen (*Crx) 5-325 Mg Tablet PO 1 tab Q4H PRN Administration Pain Rated 4-6 Hydrocodone Bitart/Acetaminophen 1 tab 11/13/20 13:10 11/15/20 22:15 Hydrocodone/Acetaminophen (*Crx) 7.5-325 Mg Tablet PO 1 tab Q4H PRN Administration Pain Rated 7-10 Docusate Sodium 100 mg 11/14/20 10:15 11/17/20 09:52 Docusate Sodium 100 Mg Capsule PO 100 mg Q12HR DEJA Administration Fentanyl Citrate 25 mcg 11/15/20 14:54 Fentanyl Citrate Inj (*Crx) 100 Mcg/2 Ml Vial IV PUSH Q2M PRN Pain Hydromorphone HCl 0.25 mg 11/15/20 14:54 Hydromorphone Hcl Inj (*Crx) 1 Mg/Ml Syr IV PUSH Q5M PRN Pain Clindamycin Phosphate 900 mg in 50 mls @ 50 mls/hr 11/15/20 15:00 11/17/20 07:24 Cleocin 900 Mg/D5w 50 Ml IVPB Infused Q8HR DEJA Infusion Magnesium Citrate 150 ml 11/14/20 10:15 Magnesium Citrate 300 Ml Btl PO PRN PRN constipation Morphine Sulfate 2 mg 11/16/20 12:21 11/16/20 13:03 Morphine Sulfate (*Crx) 2 Mg/Ml Inj IV PUSH 2 mg Q4H PRN Administration Pain Rated 7-10 Ondansetron HCl 4 mg 11/15/20 14:54 Ondansetron Inj 4 Mg/2 Ml Vial IV PUSH ONCE PRN Nausea Ondansetron HCl 4 mg 11/16/20 12:21 Ondansetron Inj 4 Mg/2 Ml Vial IV PUSH Q4H PRN Nausea And Vomiting Oxycodone HCl 5 mg 11/15/20 14:54 Oxycodone Hcl (*Crx) 5 Mg Tab Ir PO ONCE PRN Pain Polyethylene Glycol 17 gm 11/14/20 10:15 Polyethylene Glycol 3350 17 Gm Powd.Pack PO QAM PRN Constipation Saccharomyces Boulardii 250 mg 11/16/20 17:00 11/17/20 09:52 Saccharomyces [place] 250 Mg Capsule PO 250 mg BID DEJA Administration Radiology Results: ITS Impressions Soft Tissue Neck CT 11/13/20 08:26 IMPRESSION: 1. Carious lesion and periapical lucencies involving tooth 31 with adjacent sub
--- NOTE | 2020-11-17 12:41 | PM.IMPN ---
Progress Note: A&P Assessment and Plan (1) Sepsis: Code(s): A41.9 - Sepsis, unspecified organism Status: Acute Assessment and Plan: Patient met SEPSIS criteria in ED with tachycardia and leukocytosis; lactic acid WNL. Abscess suspected source. Vitals stable today.Tachycardia resolved quickly. Leukocytosis increased, but believed to be secondary to surgery yesterday. BCx drawn and are negative to date Abscess Cultures growing Streptococcus constellatus. Continue monitoring. Continue IV ABX. (2) Submandibular abscess: Code(s): K12.2 - Cellulitis and abscess of mouth Status: Acute Assessment and Plan: Patient with right 31st tooth with abscess that had spread. CT showed abnormal sub periosteal fluid collection adjacent to the right mandibular angle, consistent with abscess with prominent submandibular lymph node enlargement likely reactive. ENT was consulted, Dr. Beckman saw the patient on 11/12/2020 and performed an I&D at bedside 11/13/2020 patient had more fluctuance and Dr. Beckman took her to the OR an I and D of right submandibular abscess via transcervical approach. 11/14/2020: Patient is feeling better today. Pending wound cultures from I&D yesterday. 11/15/2020: ENT concerned for area near edge of the drain with fluctuance and he has plans to take patient back to the OR for repeat I&D tomorrow. Also discussed with switching Unasyn to IV clindamycin at this time with ENT. IV Unasyn #5, D/c and Start IV Clindamycin Day #1 11/16/2020: ENT is to be taken to the OR this evening. Continue with IV clindamycin day #2. 11/17/2020: ENT took patient to the OR yesterday and today she is feeling much better. Her WBC increased today and due to patient being taken to the OR twice this week, we will monitor her again overnight. Continue with IV clindamycin day #3. Talked with ENT who has plans to possibly discharge tomorrow if it is looking better on oral Clindamycin for 10 days and have her follow-up in the office next week. Abscess Cultures show preliminary report from anaerobic bottle with normal oral nixon and aerobic bottle Streptococcus constellatus. Appreciate recommendations from ENT Continue supportive care; warm compress Monitor for improvement Daily labs (3) Murmur: Code(s): R01.1 - Cardiac murmur, unspecified Status: Acute Assessment and Plan: On examination the patient was found to have a murmur at her left 2nd intercostal space and she denied any history of murmur in the past. Due to her current infection and possible risks of endocarditis I ordered an echocardiogram to be completed. Echocardiogram showed no signs of endocarditis, normal EF 65%, normal diastolic dysfunction. Mild concentric hypertrophy. Will need follow-up with primary care provider after discharge (4) Elevated blood pressure reading: Code(s): R03.0 - Elevated blood-pressure reading, without diagnosis of hypertension Status: Acute Assessment and Plan: Have been intermittently high while here which could be secondary to pain from her abscess. In the last 36 hours her blood pressure has ranged between 137/59 and to 142/88. Patient's echo showed some mild LVH which could be secondary to uncontrolled high blood pressure. At this time I will educate the patient on exercise, weight loss, monitoring her blood pressure at home after discharge and have her follow-up with her primary care provider to see if she continues to have elevated blood pressure she may need to be started on a medication for this. Time Spent With Patient Time with patient: 25 - 35 minutes Subjective Date/time seen: 11/17/20 12:41 Interval history: Patient is a 40 yo F with history of anxiety, depression, and GERD, who is seen in follow up
[2020-11-17 14:00] VITALS: BP 141/65; PULSE 80; RESP 20; TEMP 36.8; O2SAT 98
[2020-11-17 21:22] VITALS: BP 142/53; PULSE 80; RESP 18; TEMP 36.4; O2SAT 97
[2020-11-18 05:22] LABS: Basophils Absolute Auto 0.1 K/mm3 (0.0-0.1); Basophils Percent Auto 0.6 % (0.2-1.2); Eosinophils Absolute Auto 0.6 K/mm3 (0-0.3); Eosinophils Percent Auto 3.8 % (0-4.4); Hematocrit 33.7 % (37.0-47.0); Hemoglobin 10.7 g/dL (12.0-15.0); Immature Granulocyte Absolute 0.34 K/mm3 (0.00-0.031); Immature Granulocyte Percent A 2.4 % (0-0.5); Lymphocytes Absolute Auto 3.73 K/mm3 (0.9-3.2); Lymphocytes Percent Auto 26.1 % (18.3-44.2); Mean Corpuscular HGB Conc 31.8 g/dl (32-36); Mean Corpuscular Hemoglobin 24.7 pg (26-34); Mean Corpuscular Volume 77.8 fl (80-100); Mean Platelet Volume 10.2 fl (7.4-10.4); Monocytes Absolute Auto 1.2 K/mm3 (0.1-0.6); Monocytes Percent Auto 8.3 % (2.6-8.5); Neutrophils Absolute Auto 8.4 K/mm3 (1.3-6.7); Neutrophils Percent Auto 58.8 % (45.5-73.1); Platelet Count Result 327 k/mm3 (150-375); Red Blood Count 4.33 M/mm3 (4.2-5.4); Red Cell Distribution Width 13.5 % (11.5-14.5); White Blood Count 14.3 K/mm3 (4.5-10.0)
[2020-11-18 05:53] LABS: CRP 1.3 mg/dL (<1.0)
[2020-11-18] MEDS: CLINDAMYCIN 900 MG/D5W 50 ML 900 MG/50 ML PIGGYBACK 50 MG IVPB (05:54)
[2020-11-18 05:56] VITALS: BP 143/66; PULSE 79; RESP 18; TEMP 36.2; O2SAT 98
[2020-11-18 08:00] VITALS: PULSE 79; RESP 18; O2SAT 98
[2020-11-18] MEDS: SACCHAROMYCES BOULARDII 250 MG CAPSULE PO (08:35)
[2020-11-18] MEDS: DOCUSATE SODIUM 100 MG CAPSULE PO (08:35)
--- NOTE | 2020-11-18 09:18 | PM.PNGS ---
Progress Note: A&P Assessment and Plan (1) Odontogenic infection of jaw: Code(s): M27.2 - Inflammatory conditions of jaws Status: Acute Assessment and Plan: Consider ID consult for antibiotic choice on discharge vs dc on current abx clindamycin. If the patient is discharged please have her follow up with me on Thursday. [phone] call/text with any questions/concerns. (2) Submandibular abscess: Code(s): K12.2 - Cellulitis and abscess of mouth Status: Acute Subjective Subjective Date/Time Seen: 11/18/20 09:18 Patient overall feels improved/improving. Wbc 16 to 13, still not normalized. Exam Neck: Other: Improved edema/fluctuance/skin erythema. Persistent level 1b/2a induration. Areas explored with minimal purulence expressed. Objective Data Vital Signs Vital Signs: Vital Signs - 24 hr 11/17/20 14:00 11/17/20 21:22 11/18/20 05:56 Temperature 36.8 C 36.4 C 36.2 C L Pulse Rate 80 80 79 Respiratory Rate 20 18 18 Blood Pressure 141/65 H 142/53 H 143/66 H Pulse Oximetry 98 97 98 Intake/Output Intake/Output: Intake & Output 11/15/20 11/16/20 11/17/20 11/18/20 23:59 23:59 23:59 23:59 Intake Total 1560 1100 2640 740 Output Total 3900 4050 2750 900 Balance -2340 -2950 -110 -160 Meds/Results Medications: Active Medications Generic Name Dose Route Start Last Admin Trade Name Freq PRN Reason Stop Dose Admin Acetaminophen 1,000 mg 11/13/20 13:10 Acetaminophen 500 Mg Tablet PO Q6H PRN Mild Pain (1-3) or Fever Hydrocodone Bitart/Acetaminophen 1 tab 11/13/20 13:10 11/17/20 09:52 Hydrocodone/Acetaminophen (*Crx) 5-325 Mg Tablet PO 1 tab Q4H PRN Administration Pain Rated 4-6 Hydrocodone Bitart/Acetaminophen 1 tab 11/13/20 13:10 11/15/20 22:15 Hydrocodone/Acetaminophen (*Crx) 7.5-325 Mg Tablet PO 1 tab Q4H PRN Administration Pain Rated 7-10 Docusate Sodium 100 mg 11/14/20 10:15 11/18/20 08:35 Docusate Sodium 100 Mg Capsule PO 100 mg Q12HR DEJA Administration Fentanyl Citrate 25 mcg 11/15/20 14:54 Fentanyl Citrate Inj (*Crx) 100 Mcg/2 Ml Vial IV PUSH Q2M PRN Pain Hydromorphone HCl 0.25 mg 11/15/20 14:54 Hydromorphone Hcl Inj (*Crx) 1 Mg/Ml Syr IV PUSH Q5M PRN Pain Clindamycin Phosphate 900 mg in 50 mls @ 50 mls/hr 11/15/20 15:00 11/18/20 06:48 Cleocin 900 Mg/D5w 50 Ml IVPB Infused Q8HR DEJA Infusion Magnesium Citrate 150 ml 11/14/20 10:15 Magnesium Citrate 300 Ml Btl PO PRN PRN constipation Morphine Sulfate 2 mg 11/16/20 12:21 11/16/20 13:03 Morphine Sulfate (*Crx) 2 Mg/Ml Inj IV PUSH 2 mg Q4H PRN Administration Pain Rated 7-10 Ondansetron HCl 4 mg 11/15/20 14:54 Ondansetron Inj 4 Mg/2 Ml Vial IV PUSH ONCE PRN Nausea Ondansetron HCl 4 mg 11/16/20 12:21 Ondansetron Inj 4 Mg/2 Ml Vial IV PUSH Q4H PRN Nausea And Vomiting Oxycodone HCl 5 mg 11/15/20 14:54 Oxycodone Hcl (*Crx) 5 Mg Tab Ir PO ONCE PRN Pain Polyethylene Glycol 17 gm 11/14/20 10:15 Polyethylene Glycol 3350 17 Gm Powd.Pack PO QAM PRN Constipation Saccharomyces Boulardii 250 mg 11/16/20 17:00 11/18/20 08:35 Saccharomyces Boulardii 250 Mg Capsule PO 250 mg BID DEJA Administration Radiology Results: ITS Impressions Soft Tissue Neck CT 11/13/20 08:26 IMPRESSION: 1. Carious lesion and periapical lucencies involving tooth 31 with adjacent subperiosteal abscess without significant change and with inflammation of the overlying subcutaneous fat with mild worsening. Labs Labs: Laboratory Results - last 24 hr 11/18/20 11/18/20 04:51 04:51 WBC 14.3 H RBC 4.33 Hgb 10.7 L Hct 33.7 L MCV 77.8 L MCH 24.7 L MCHC 31.8 L RDW 13.5 Plt Count 327 MPV 10.2 Immature Gran % (Auto) 2.4 H Neut % (Auto) 58.8 Lymph % (Auto) 26.1 Worth % (Auto) 8.3 Eos % (Auto) 3.8 Baso % (Auto
--- NOTE | 2020-11-18 11:03 | PM.DS ---
DS: Admitting Diagnosis Admitting Diagnosis Admitting Diagnosis: Jaw/Neck swelling and pain DS: Discharge Diagnosis Discharge Diagnosis (1) Sepsis: Code(s): A41.9 - Sepsis, unspecified organism Status: Acute Assessment and Plan: Patient met SEPSIS criteria in ED with tachycardia and leukocytosis; lactic acid WNL. Abscess suspected source. Vitals stable today.Tachycardia resolved quickly. Leukocytosis increased, but believed to be secondary to surgery yesterday. BCx drawn and are negative to date Abscess Cultures growing Streptococcus constellatus. Continue Clindamycin 300 mg Q8hrs for 10 more days and follow up with ENT on 11/20/2020. (2) Submandibular abscess: Code(s): K12.2 - Cellulitis and abscess of mouth Status: Acute Assessment and Plan: Patient with right 31st tooth with abscess that had spread. CT showed abnormal sub periosteal fluid collection adjacent to the right mandibular angle, consistent with abscess with prominent submandibular lymph node enlargement likely reactive. ENT was consulted, Dr. Beckman saw the patient on 11/12/2020 and performed an I&D at bedside 11/13/2020 patient had more fluctuance and Dr. Beckman took her to the OR an I and D of right submandibular abscess via transcervical approach. 11/14/2020: Patient is feeling better today. Pending wound cultures from I&D yesterday. 11/15/2020: ENT concerned for area near edge of the drain with fluctuance and he has plans to take patient back to the OR for repeat I&D tomorrow. Also discussed with switching Unasyn to IV clindamycin at this time with ENT. IV Unasyn #5, D/c and Start IV Clindamycin Day #1 11/16/2020: ENT is to be taken to the OR this evening. Continue with IV clindamycin day #2. 11/17/2020: ENT took patient to the OR yesterday and today she is feeling much better. Her WBC increased today and due to patient being taken to the OR twice this week, we will monitor her again overnight. Continue with IV clindamycin day #3. 11/18/2020: Patient feeling better. Pain controlled. Denies fever, chills. Continue oral Clindamycin for 10 days and have her follow-up in the office Thursday. Abscess Cultures show preliminary report from anaerobic bottle with normal oral nixon and aerobic bottle Streptococcus constellatus. Continue supportive care; warm compress and massaging of the area. (3) Murmur: Code(s): R01.1 - Cardiac murmur, unspecified Status: Acute Assessment and Plan: On examination the patient was found to have a murmur at her left 2nd intercostal space and she denied any history of murmur in the past. Due to her current infection and possible risks of endocarditis I ordered an echocardiogram to be completed. Echocardiogram showed no signs of endocarditis, normal EF 65%, normal diastolic dysfunction. Mild concentric hypertrophy. Will need follow-up with primary care provider after discharge (4) Elevated blood pressure reading: Code(s): R03.0 - Elevated blood-pressure reading, without diagnosis of hypertension Status: Acute Assessment and Plan: Have been intermittently high while here which could be secondary to pain from her abscess. In the last 36 hours her blood pressure has ranged between 137/59 and to 142/88. Patient's echo showed some mild LVH which could be secondary to uncontrolled high blood pressure. At this time I will educate the patient on exercise, weight loss, monitoring her blood pressure at home after discharge and have her follow-up with her primary care provider to see if she continues to have elevated blood pressure she may need to be started on a medication for this. DS: Summary Hospital Course Hospital Course: Patient is a 40-year-old woman with no chronic medical condit
--- NOTE | 2020-11-18 11:53 | PC.NURSE ---
Prior to discharge lan drain to the upper medial portion of the jaw completely dislodged. Dr. Ruffin notified, received guidance to pack the wound with 1/4 inch packing strips and guaze to cover and send home educating patient on how to pack wound. Wound packed and Carmen educated, verbalizing understanding. Patient will follow up with Dr. Ruffin in his office on Thursday.
--- NOTE | 2020-11-26 08:06 | WPDPROCEDUR ---
Procedures Abscess I/D Site: oral Side (if applicable): right Sedation/analgesia: none Anesthetic used: with epi Technique: needle aspiration and incised with #11 blade Comments: 5 cc of 1% lidocaine with 1 100,000 parts epinephrine was checked a deep adjacent to the mandible on the right an 18 gauge needle as well as 11 blade were used to cut through the mucosa and aspirate. Blunt dissection was carried out with Jennifer forceps / hemostat no purulence was encountered. Hemostasis was excellent and the patient tolerated the procedure well and there were no complications. Right lingual nerve was intact.
== END 2020-11-18 12:15 | disposition home or self-care (01) | DRG 710 ==
LOC: ANHED 11:40 → ANH2MED 11-12 06:42 → ANHTRC 11-15 12:50 → ANH2MED 11-21 14:22 → ANHTRC 11-21 14:22
PROVIDERS: Nurse Practitioner; Otolaryngology; Physician Assistant; Admitting Provider Internal Medicine; Emergency Provider Emergency Medicine; PCP Physician Assistant; Visit Provider Physician Assistant
PROC: 0J9100Z Drainage of Face Subcutaneous Tissue and Fascia with Drainage Device, Open Approach (ICD-10-PCS; principal; 2020-11-13 10:00)
PROC: 0J9400Z Drainage of Right Neck Subcutaneous Tissue and Fascia with Drainage Device, Open Approach (ICD-10-PCS; principal; 2020-11-16 17:00)
DX: A41.9 Sepsis, unspecified organism (principal); K04.7 Periapical abscess without sinus; M27.2 Inflammatory conditions of jaws; R01.1 Cardiac murmur, unspecified; R03.0 Elevated blood-pressure reading, without diagnosis of hypertension; F41.8 Other specified anxiety disorders; K21.9 Gastro-esophageal reflux disease without esophagitis; B95.5 Unspecified streptococcus as the cause of diseases classified elsewhere
CPT/HCPCS: 36415; 70491; 80048; 80053; 81025; 83605; 83735; 85025; 85027; 85055; 85652; 86140; 87040; 87070; 87075; 87077; 87205; 93306; 96361; 96365; 96375; 99285; A9270; J0131; J0295; J0330; J1100; J1885; J2250; J2270; J2405; J2704; J3010; J7030; J7120; Q9967

== ENCOUNTER 2021-07-07 15:56 | Emergency (ER) | payer BC, SELFPAY ==
[2021-07-07] VITALS (10 sets, daily range): BP systolic 165–230; BP diastolic 85–132; PULSE 78–99; RESP 14–23; TEMP 35.8–36.7; O2SAT 99–100
--- NOTE | 2021-07-07 16:44 | ED.EPISTAXIS ---
HPI - Epistaxis General Chief complaint: Epistaxis Stated complaint: nosebleeds x 10 in 3 days Time Seen by Provider: 07/07/21 16:30 Source: patient and family Mode of arrival: ambulatory Limitations: no limitations History of Present Illness HPI Narrative: 40 years old white female presented to the ED with intermittent nosebleed started 3 days ago. Patient reports at least 3 episodes of bleeding right nostril today. Currently no active bleeding. Patient denies a history of epistaxis, patient is not on any antiplatelet or anticoagulant medication. Patient denies any trauma. Related Data Allergies Allergy/AdvReac Type Severity Reaction Status Date / Time shellfish derived Allergy Swelling Verified 07/07/21 16:11 of Lip/Tongue/Throat WASP AdvReac Severe Swelling Uncoded 07/07/21 16:11 Review of Systems Review of Systems: CONSTITUTIONAL: Denies fever, chills, or sweats. EYES: Denies visual changes, redness, or discharge. ENT: Denies rhinorrhea, congestion, sore throat, or otalgia. CARDIOVASCULAR: Denies chest pain, palpitations, or edema. RESPIRATORY: Denies cough or dyspnea. GASTROINTESTINAL: Denies abdominal pain, nausea, vomiting, or diarrhea. GENITOURINARY: Denies dysuria or hematuria. SKIN: Denies rash or itching. MUSCULOSKELETAL: Denies back pain, joint pain, or myalgia. NEUROLOGIC: Denies headache, numbness, or weakness. PSYCHIATRIC: Denies anxiety or depression. [facility] Past Medical History Medical History Anxiety no longer on any medications Depression no longer taking medications. GERD (gastroesophageal reflux disease) Obesity Renal disease Surgical History Surgical History History of bunionectomy Hx of tubal ligation Previous section X3 Family History Family History Mother Asthma Hypertension Sibling Asthma Hypertension Sibling Asthma Father Chronic obstructive pulmonary disease He has been Congestive heart failure Social History Social History Social History: the patient recently started a job at [employer]. She is from her but now lives with a significant other. She has 3 children. She stated that her significant other are could be durable power ip technology transactions attorney for healthcare. Patient is a full code. She is a lifelong nonsmoker and rarely uses alcohol. She denies any marijuana or illicit drugs. Smoking status: Never smoker Second hand tobacco smoke exposure: No Alcohol intake: unknown Substance use: never Substance use type: does not use Gender identity (if verbalized by the patient): Female Sexual Orientation (if Verbalized by the Patient): Straight or Heterosexual Spiritual care concerns: No Exam Narrative: General appearance: Well-developed, well-nourished Skin: Normal color Head: Normocephalic, nontraumatic Eyes: Clear conjunctiva ENT: Oropharynx normal, ears normal, nose normal, nasal exam showed no active bleeding, trace of fresh blood right nostril Neck: Supple, nontender Chest and respiratory: Airway patent, no respiratory distress, no accessory muscle use Heart: Regular rate/rhythm Abdomen: Soft, nontender, no organomegaly, quiet bowel sounds Vascular: Normal peripheral pulses, normal capillary refill. Musculoskeletal: Normal range of motion, nontender back Neurologic: Alert and oriented ?3, [facility] is normal as tested, no gross motor deficit Course Course Emergency Course: Stable Vital Signs Vital signs: Vital
[2021-07-07 17:18] LABS: Basophils Absolute Auto 0.1 K/mm3 (0.0-0.1); Basophils Percent Auto 0.6 % (0.2-1.2); Eosinophils Absolute Auto 0.3 K/mm3 (0-0.3); Eosinophils Percent Auto 2.4 % (0-4.4); Hematocrit 32.5 % (37.0-47.0); Hemoglobin 10.3 g/dL (12.0-15.0); Immature Granulocyte Absolute 0.06 K/mm3 (0.00-0.031); Immature Granulocyte Percent A 0.6 % (0-0.5); Lymphocytes Absolute Auto 3.29 K/mm3 (0.9-3.2); Lymphocytes Percent Auto 30.5 % (18.3-44.2); Mean Corpuscular HGB Conc 31.7 g/dl (32-36); Mean Corpuscular Hemoglobin 25.9 pg (26-34); Mean Corpuscular Volume 81.7 fl (80-100); Mean Platelet Volume 10.6 fl (7.4-10.4); Monocytes Absolute Auto 0.8 K/mm3 (0.1-0.6); Monocytes Percent Auto 7.6 % (2.6-8.5); Neutrophils Absolute Auto 6.3 K/mm3 (1.3-6.7); Neutrophils Percent Auto 58.3 % (45.5-73.1); Platelet Count Result 259 k/mm3 (150-375); Red Blood Count 3.98 M/mm3 (4.2-5.4); Red Cell Distribution Width 15.2 % (11.5-14.5); White Blood Count 10.8 K/mm3 (4.5-10.0)
[2021-07-07] MEDS: LABETALOL HCL INJ 100 MG/20 ML VIAL 20 MG IV PUSH (18:48)
[2021-07-07] MEDS: LORazepam INJ (*CRX) 2 MG/ML VIAL 1 MG IV PUSH (18:48)
--- NOTE | 2021-07-07 18:50 | PC.NURSE ---
While performing discharge vitals this patient's blood pressure was noted to be elevated. NIBP was checked in both arms followed by a manual pressure check in the right arm. All readings were elevated. The EDP was notified and patient was moved to a monitored room and line started by verbal order of the EDP. Patient does report feeling sinus pressure rated 2/10 but denies any other complaints at this time. Patient denies any history of hypertension and tells me that she does not take medications for high blood pressure.
[2021-07-07] MEDS: LABETALOL HCL INJ 100 MG/20 ML VIAL 10 MG IV PUSH (19:22)
== END 2021-07-07 20:04 | disposition home or self-care (01) ==
PROVIDERS: Emergency Provider Emergency Medicine; PCP Physician Assistant
DX: R04.0 Epistaxis (principal); I10 Essential (primary) hypertension
CPT/HCPCS: 30901; 36415; 85025; 96374; 96375; 96376; 99284; J2060

== ENCOUNTER 2021-07-11 10:56 | Emergency (ER) | payer BC, SELFPAY ==
[2021-07-11] VITALS (7 sets, daily range): BP systolic 128–145; BP diastolic 59–88; PULSE 90–108; RESP 16–20; TEMP 36.3–36.8; O2SAT 100
--- NOTE | ~2021-07-11 | XR_ITS ---
EXAMINATION: XR chest 2V DATE: 07/11/2021 11:42 INDICATION: Left-sided chest pain TECHNIQUE: PA and lateral views of the chest are obtained. COMPARISON: None available FINDINGS: The lungs are free of acute opacities. There is no pleural effusion or pneumothorax. The ca rdiomediastinal silhouette is normal. There is mild lumbar spondylosis. IMPRESSION: 1. No acute cardiopulmonary abnormality. Reviewed, dictated and finalized at location A.
--- NOTE | 2021-07-11 11:15 | ECG_ITS ---
Measurements Intervals [place] Rate: 102 P: 32 NE: 119 QRS: 48 QRSD: 85 T: 35 QT: 324 QTc: 422 Interpretive Statements SINUS TACHYCARDIA WITH SHORT NE INTERVAL MINIMAL Q WAVES- INFERIOR LEADS BORDERLINE ECG Electronically Signed On 07-11-2021 11:40:55 CDT by Josesito Adams D.O.
[2021-07-11 11:45] LABS: Basophils Absolute Auto 0.1 K/mm3 (0.0-0.1); Basophils Percent Auto 0.8 % (0.2-1.2); Eosinophils Absolute Auto 0.2 K/mm3 (0-0.3); Eosinophils Percent Auto 1.6 % (0-4.4); Hematocrit 34.7 % (37.0-47.0); Immature Granulocyte Absolute 0.13 K/mm3 (0.00-0.031); Lymphocytes Absolute Auto 3.31 K/mm3 (0.9-3.2); Lymphocytes Percent Auto 24.5 % (18.3-44.2); Mean Corpuscular HGB Conc 31.7 g/dl (32-36); Mean Corpuscular Hemoglobin 25.8 pg (26-34); Mean Corpuscular Volume 81.5 fl (80-100); Mean Platelet Volume 10.6 fl (7.4-10.4); Monocytes Absolute Auto 1.2 K/mm3 (0.1-0.6); Monocytes Percent Auto 8.5 % (2.6-8.5); Neutrophils Absolute Auto 8.6 K/mm3 (1.3-6.7); Neutrophils Percent Auto 63.6 % (45.5-73.1); Platelet Count Result 435 k/mm3 (150-375); Red Blood Count 4.26 M/mm3 (4.2-5.4); Red Cell Distribution Width 15.7 % (11.5-14.5); White Blood Count 13.5 K/mm3 (4.5-10.0)
[2021-07-11 11:55] LABS: Alanine Aminotransferase 22 U/L (4-35); Albumin Level 4.4 g/dL (3.5-5.1); Alkaline Phosphatase 111 U/L (38-126); Anion Gap 12 mmol/L (8-16); Aspartate Amino Transferase 19 U/L (14-36); Bilirubin,Total 0.7 mg/dL (0.2-1.3); Blood Urea Nitrogen 21 mg/dL (7-17); Calcium 9.7 mg/dL (8.4-10.2); Carbon Dioxide 28 mmol/L (22-30); Chloride 98 mmol/L (98-107); Estimated CRCL calculation 73 ml/min; Estimated Glomerular Filt Rate 56; Glucose 120 mg/dL (65-110); Potassium 3.9 mmol/L (3.4-5.0); Sodium 138 mmol/L (137-145)
[2021-07-11] MEDS: SODIUM CHLORIDE 0.9% IV 1,000 ML 999 ML IV CONT (14:49)
[2021-07-11 15:06] LABS: Add Urine Microscopic? YES; Appearance Urine Clear (Clear); Bacteria Urine Trace /hpf; Bilirubin Urine Negative (Negative); Blood Urine Negative (Negative); Calcium Oxalate Crystals Urine Present /hpf; Color Urine Yellow (Yellow); Glucose Urine UA Negative (Negative); Ketones Urine Negative (Negative); Leukocyte Esterase Ur Negative LEU/UL (Negative); Mucus Urine Few /lpf; Nitrate Urine Negative (Negative); Protein Urine 2+ mg/dL (Negative); Squamous Epithelial Cell Urine Many /hpf (Few); Urobilinogen Urine Negative mg/dL (<2.0); WBC Urine 0-3 /hpf
[2021-07-11 15:08] LABS: Specific Grav Ur 1.031 (1.001-1.035)
[2021-07-11 15:23] LABS: Troponin I < 0.012 ng/mL (0.000-0.034)
--- NOTE | 2021-07-11 16:43 | ED.GENADULT ---
HPI - General Adult General Chief complaint: Weakness Stated complaint: SOB Time Seen by Provider: 07/11/21 14:01 Source: patient Mode of arrival: ambulatory Limitations: no limitations History of Present Illness HPI narrative: Patient presents with chief complaint of fatigue and foggy feeling. Patient started on losartan and hydrochlorothiazide a few days ago due to extremely high blood pressure while in the emergency department accompanied by epistaxis. Patient states since she has been taking the medication she has had some headache, fatigue and foggy feeling. Patient states that she is awaiting her throat and cleared up the epistaxis. Patient states she has a follow-up appointment with her primary care on Thursday. Related Data Allergies Allergy/AdvReac Type Severity Reaction Status Date / Time shellfish derived Allergy Swelling Verified 07/11/21 14:20 of Lip/Tongue/Throat WASP AdvReac Severe Swelling Uncoded 07/11/21 14:20 Review of Systems Review of Systems: CONSTITUTIONAL: Reports fatigue and foggy feeling denies fever, chills, or sweats. EYES: Denies visual changes, redness, or discharge. ENT: Denies rhinorrhea, congestion, sore throat, or otalgia. CARDIOVASCULAR: Denies chest pain, palpitations, or edema. RESPIRATORY: Denies cough or dyspnea. GASTROINTESTINAL: Denies abdominal pain, nausea, vomiting, or diarrhea. GENITOURINARY: Denies dysuria or hematuria. SKIN: Denies rash or itching. MUSCULOSKELETAL: Denies back pain, joint pain, or myalgia. NEUROLOGIC: Denies headache, numbness, dizziness, or weakness. PSYCHIATRIC: Denies anxiety or depression. [facility] Past Medical History Medical History Anxiety no longer on any medications Depression no longer taking medications. GERD (gastroesophageal reflux disease) Obesity Renal disease Surgical History Surgical History History of bunionectomy Hx of tubal ligation Previous section X3 Family History Family History Mother Asthma Hypertension Sibling Asthma Hypertension Sibling Asthma Father Chronic obstructive pulmonary disease He has been Congestive heart failure Social History Social History Social History: the patient recently started a job at [email or web address]. She is from her but now lives with a significant other. She has 3 children. She stated that her significant other are could be durable power litigation attorney associate for healthcare. Patient is a full code. She is a lifelong nonsmoker and rarely uses alcohol. She denies any marijuana or illicit drugs. Smoking status: Never smoker Second hand tobacco smoke exposure: No Alcohol intake: unknown Substance use: never Substance use type: does not use Gender identity (if verbalized by the patient): Female Sexual Orientation (if Verbalized by the Patient): Straight or Heterosexual Spiritual care concerns: No Exam Narrative: GENERAL: Well-appearing, well-nourished, and in no acute distress. HEAD: Normocephalic, atraumatic. EYES: PERRLA and EOMI. CHEST: Clear to auscultation. No respiratory distress. No wheezes rales or rhonchi HEART: Regular rate and rhythm. No murmur heard. Normal peripheral pulses. ABDOMEN: Soft, nontender, nondistended, normal active bowel sounds. EXTREMITIES: Normal range of motion. No edema. SKIN: Warm, dry, no rash. NEURO: No focal deficits. Alert and oriented x3. PSYCH: Normal mood and affect. Course Vital Signs Vital signs: Vital Signs Temperature 98.2 F 07/11/21 11:13 Pulse Rate 104 H 07/11/21 11:13 Respiratory Rate 18 07/11/21 11:13 Blood Pressure 145/77 H 07/11/21 11:13 Pulse Oximetry 100 07/11/21 11:13 Temperature 97.4 F L 07/11/21 13:35 Pulse R
== END 2021-07-11 17:19 | disposition home or self-care (01) ==
PROVIDERS: Physician Assistant; Emergency Provider Emergency Medicine; PCP Physician Assistant
DX: I10 Essential (primary) hypertension (principal); K21.9 Gastro-esophageal reflux disease without esophagitis; E66.9 Obesity, unspecified; Z68.34 Body mass index [BMI] 34.0-34.9, adult; N28.9 Disorder of kidney and ureter, unspecified; R00.0 Tachycardia, unspecified
CPT/HCPCS: 36415; 71046; 80053; 81001; 84484; 85025; 93005; 96360; 99284; J7030

== ENCOUNTER 2022-08-16 12:50 | Emergency (ER) | payer OTHER, SELFPAY ==
[2022-08-16 12:56] VITALS: BP 163/116; PULSE 98; RESP 18; TEMP 36.8; O2SAT 98
--- NOTE | 2022-08-16 12:56 | ED.ABDPAIN ---
HPI - Abdominal Pain General Chief Complaint: Abdominal Pain Stated Complaint: lower abdominal pain Time Seen by Provider: 08/16/22 12:55 History of Present Illness HPI narrative: Patient is a 41-year-old female with a history of hypertension presenting with menstrual cramps. Patient states that her period started yesterday. States that she has a long history of extremely painful periods. States she supposed to take ibuprofen 3 times daily but it makes her drowsy so she has not taken anything today. States that this feels exactly like her normal period cramps. Endorses nausea but no vomiting. No diarrhea or dysuria. Denies fevers, headache, lightheadedness, chest pain, shortness of breath, leg swelling. Related Data Allergies Allergy/AdvReac Type Severity Reaction Status Date / Time shellfish derived Allergy Swelling Verified 08/16/22 12:59 of Lip/Tongue/Throat WASP AdvReac Severe Swelling Uncoded 08/16/22 12:59 Review of Systems Review of Systems: All systems reviewed & are unremarkable except as noted in HPI and below PMFSH Past Medical History Medical History Anxiety no longer on any medications Depression no longer taking medications. GERD (gastroesophageal reflux disease) Obesity Renal disease Surgical History Surgical History History of bunionectomy Hx of tubal ligation Previous section X3 Family History Family History Mother Asthma Hypertension Sibling Asthma Hypertension Sibling Asthma Father Chronic obstructive pulmonary disease He has been Congestive heart failure Social History Social History Social History: the patient recently started a job at [employer]. She is from her but now lives with a significant other. She has 3 children. She stated that her significant other are could be durable power tile roofer for healthcare. Patient is a full code. She is a lifelong nonsmoker and rarely uses alcohol. She denies any marijuana or illicit drugs. Smoking status: Never smoker Second hand tobacco smoke exposure: No Alcohol intake: unknown Substance use: never Substance use type: does not use Gender identity (if verbalized by the patient): Female Sexual Orientation (if Verbalized by the Patient): Straight or Heterosexual Spiritual care concerns: No Exam Narrative: GENERAL: Well-appearing, well-nourished, and in no acute distress. HEAD: Normocephalic, atraumatic. EYES: PERRLA and EOMI. ENT: Nares clear, no rhinorrhea or epistaxis. Mucous membranes moist. NECK: Supple. CHEST: Clear to auscultation. No respiratory distress. HEART: Regular rate and rhythm. No murmur heard. Normal peripheral pulses. ABDOMEN: Soft, nontender, nondistended, normal active bowel sounds. EXTREMITIES: Normal range of motion. No edema. SKIN: Warm, dry, no rash. NEURO: No focal deficits. Alert and oriented x3. PSYCH: Normal mood and affect. Course Course Emergency Course: Patient is a 41-year-old female presenting with abdominal pain. Patient is hypertensive, his vitals are within normal limits. Exam is unremarkable. Patient with symptomatic improvement following IV Toradol and Tylenol. Blood work with a leukocytosis but no other acute abnormalities. Hemoglobin is stable. Advised that she follow-up closely with her SENIOR MARKET RESEARCH ANALYST and PCP. Appropriate return precautions given. Patient voiced understanding and is agreeable with plan. Discharged in stable condition. Vital Signs Vital signs: Vital Signs Temperature 98.3 F 08/16/22 12:56 Pulse Rate 98 08/16/22 12:56 Respiratory Rate 18 08/16/22 12:56 Blood Pressure 163/116 H 08/16/22 12:56 Pulse Oximetry 98 08/16/22 12:56 Oxygen Delivery Room
[2022-08-16] MEDS: KETOROLAC 30 MG/ML VIAL (*BKC) IV PUSH (14:23)
[2022-08-16 14:33] LABS: Basophils Absolute Auto 0.1 K/mm3 (0.0-0.1); Basophils Percent Auto 0.6 % (0.2-1.2); Eosinophils Absolute Auto 0.2 K/mm3 (0-0.3); Eosinophils Percent Auto 1.1 % (0-4.4); Hematocrit 40.6 % (37.0-47.0); Hemoglobin 14.1 g/dL (12.0-15.0); Immature Granulocyte Absolute 0.07 K/mm3 (0.00-0.031); Immature Granulocyte Percent A 0.5 % (0-0.5); Lymphocytes Absolute Auto 1.73 K/mm3 (0.9-3.2); Lymphocytes Percent Auto 11.6 % (18.3-44.2); Mean Corpuscular HGB Conc 34.7 g/dl (32-36); Mean Corpuscular Hemoglobin 29.7 pg (26-34); Mean Corpuscular Volume 85.7 fl (80-100); Mean Platelet Volume 11.2 fl (7.4-10.4); Monocytes Absolute Auto 0.8 K/mm3 (0.1-0.6); Monocytes Percent Auto 5.5 % (2.6-8.5); Neutrophils Percent Auto 80.7 % (45.5-73.1); Platelet Count Result 225 k/mm3 (150-375); Red Blood Count 4.74 M/mm3 (4.2-5.4); Red Cell Distribution Width 12.7 % (11.5-14.5); White Blood Count 14.9 K/mm3 (4.5-10.0)
[2022-08-16 14:40] LABS: Add Urine Microscopic? YES; Appearance Urine Clear (Clear); Bacteria Urine Trace /hpf; Bilirubin Urine Negative (Negative); Blood Urine 2+ (Negative); Color Urine Straw (Yellow); Glucose Urine UA Negative (Negative); Ketones Urine Negative (Negative); Leukocyte Esterase Ur Negative LEU/UL (Negative); Mucus Urine Rare /lpf; Nitrate Urine Negative (Negative); Protein Urine Negative (Negative); RBC Urine 21-50 /hpf (0-2); Specific Grav Ur 1.006 (1.001-1.035); Squamous Epithelial Cell Urine Rare /hpf (Few); Urobilinogen Urine Negative mg/dL (<2.0); WBC Urine 0-3 /hpf
[2022-08-16 14:43] LABS: Alanine Aminotransferase 47 U/L (6-35); Albumin Level 4.7 g/dL (3.5-5.1); Alkaline Phosphatase 65 U/L (38-126); Anion Gap 16 mmol/L (8-16); Aspartate Amino Transferase 48 U/L (14-36); Bilirubin,Total 1.2 mg/dL (0.2-1.3); Blood Urea Nitrogen 9 mg/dL (7-17); Calcium 8.7 mg/dL (8.4-10.2); Carbon Dioxide 24 mmol/L (22-30); Chloride 101 mmol/L (98-107); Estimated CRCL calculation 114 ml/min; Estimated Glomerular Filt Rate > 60; Glucose 151 mg/dL (65-110); Potassium 4.1 mmol/L (3.4-5.0); Sodium 141 mmol/L (137-145)
[2022-08-16 14:45] LABS: Platelet Estimate Adequate (Adequate); Schistocytes None Seen (NORMAL)
[2022-08-16 17:10] VITALS: BP 148/66; PULSE 85; RESP 14; O2SAT 100
== END 2022-08-16 17:10 | disposition home or self-care (01) ==
PROVIDERS: Emergency Provider Emergency Medicine; PCP Physician Assistant
DX: N94.6 Dysmenorrhea, unspecified (principal); N28.9 Disorder of kidney and ureter, unspecified; K21.9 Gastro-esophageal reflux disease without esophagitis; E66.9 Obesity, unspecified; Z68.37 Body mass index [BMI] 37.0-37.9, adult
CPT/HCPCS: 36415; 80053; 81001; 81025; 85025; 96365; 96375; 99284; J0131; J1885

== ENCOUNTER 2023-03-03 11:26 | Outpatient (CLI) | payer OTHER, SELFPAY ==
--- NOTE | 2023-03-03 11:37 | ECG_ITS ---
Measurements Intervals [place] Rate: 77 P: 21 VT: 146 QRS: 24 QRSD: 90 T: 24 QT: 361 QTc: 409 Interpretive Statements SINUS RHYTHM WITH SINUS ARRHYTHMIA DELAYED PRECORDIAL R/S TRANSITION MINIMAL Q WAVES- INFERIOR LEADS BORDERLINE ECG COMPARED TO ECG 07/11/2021 11:19:40 SINUS RHYTHM NOW PRESENT SINUS ARRHYTHMIA NOW PRESENT Electronically Signed On 03-03-2023 11:57:16 CDT by Josesito Adams D.O.
[2023-03-03 11:57] LABS: Hematocrit 39.7 % (37.0-47.0); Hemoglobin 13.2 g/dL (12.0-15.0)
[2023-03-03 12:11] LABS: Alanine Aminotransferase 60 U/L (6-35); Albumin Level 4.5 g/dL (3.5-5.1); Alkaline Phosphatase 68 U/L (38-126); Anion Gap 6 mmol/L (8-16); Aspartate Amino Transferase 44 U/L (14-36); Bilirubin,Total 1.5 mg/dL (0.2-1.3); Blood Urea Nitrogen 12 mg/dL (7-17); Calcium 8.8 mg/dL (8.4-10.2); Carbon Dioxide 29 mmol/L (22-30); Chloride 105 mmol/L (98-107); Estimated Glomerular Filt Rate > 60; Glucose 127 mg/dL (65-110); Sodium 140 mmol/L (137-145)
== END 2023-03-03 11:27 | disposition home or self-care (01) ==
LOC: ANHSURGERY 11:30
PROVIDERS: Anesthesiology; PCP Nurse Practitioner; Visit Provider Obstetrics & Gynecology
DX: Z01.812 Encounter for preprocedural laboratory examination (principal); Z01.810 Encounter for preprocedural cardiovascular examination; D25.9 Leiomyoma of uterus, unspecified; I10 Essential (primary) hypertension; D64.9 Anemia, unspecified; I49.8 Other specified cardiac arrhythmias
CPT/HCPCS: 36415; 80053; 85014; 85018; 86850; 86900; 86901; 93005

== ENCOUNTER 2023-03-10 00:11 | Day surgery (SDC) | payer OTHER, SELFPAY ==
[2023-03-02 15:39] VITALS: BMI 37.1
--- NOTE | 2023-03-02 15:49 | PC.NURSE ---
Report to the Outpatient Waiting Room, entrance under the green pavilion located off [facility], at time 6:00 on date 03/10/23. Planned Procedure Time: 7:30. Time changes happen often and if your time is changed the preop area will call you the afternoon before. - You and your visitor will be asked to self-screen and do not enter if you have any COVID symptoms. - A mask is optional within the hospital at this time. Patients may have clear liquids (water, carbonated beverages, clear teas, apple juice) until 3 hours prior to surgery (4:30) with a maximum of 20 ounces. - No food from midnight until time of surgery Take the following medications with a SIP of water the morning of surgery: NONE DO NOT STOP ANY OF YOUR OTHER PRESCRIPTION MEDICATIONS PRIOR TO SURGERY EXCEPT THE FOLLOWING Medications to discontinue per physician: VITAMINS/SUPPLEMENTS Date to take last dose: 03/06/23 Please no make-up, nail finnish, hairspray, perfume, deodorant, or body powder the day of surgery. No jewelry (including any body piercings) or valuables the day of surgery, leave them at home. Please take a shower or bath the night before, or the morning of, surgery with an antibacterial soap. Wear comfortable, loose fitting clothing. - Jewelry must be removed prior to entering the operating room. Rings and piercings that are not removed may be cut off. - The hospital will not accept responsibility for valuables. - Please leave all valuables, including medications, at home the day of surgery. If you are going home after surgery, a licensed non emergency services ambulance driver must drive you home. - NO public transportation without another adult if you receive anesthesia. - We recommend that an adult stay with you for 24 hours following discharge. - We also recommend that you do not drive, make important decision, drink alcoholic beverages, or take any drugs that were not prescribed by your health care provider for at least 24 hours after your discharge time. Follow any additional instructions given to you from your surgeon. If you or anyone in your household have experienced Covid symptoms in the past week, please notify your surgeon or the nurse liaison at the phone number below for possible testing. Telephone instructions given to PT - GEOVANI GLASS and asked if any additional questions and then verbalized understanding. Patient advised to call surgeon office or pre surgery nurse liaison [phone] if any additional questions.
--- NOTE | 2023-03-09 09:30 | WPDANESEPPF ---
Anes - Initial Pre Proc Eval Procedure: Operation Date: 03/10/23 07:30 Proposed Procedures p Total Laparoscopic Hysterectomy with Bilateral Salpingectomy - Chema Jewell MD Date/Time: 03/09/23 09:30 Surgeon: Chema Jewell MD Pre Op Diagnosis: Uterine Leiomyoma Patient Data Age: 42 Gender: F Height: 1.68 m Weight: 104.33 kg Allergies Allergy/AdvReac Type Severity Reaction Status Date / Time shellfish derived Allergy Swelling Verified 03/10/23 06:05 of Lip/Tongue/Throat WASP AdvReac Severe Swelling Uncoded 03/10/23 06:05 Home Medications Medication Instructions Recorded Confirmed Type losartan 50 mg tablet 50 mg PO DAILY #7 tabs 07/11/21 03/10/23 Rx ascorbic acid (vitamin C) 1,000 mg 1 g PO DAILY 03/02/23 03/10/23 History tablet (Vitamin C) cholecalciferol (vitamin D3) 125 125 mcg PO DAILY 03/02/23 03/10/23 History mcg (5,000 unit) tablet (Vitamin D3) cyclobenzaprine 10 mg tablet 10 mg PO TID PRN Muscle Spasm 03/02/23 03/02/23 History evening primrose oil 500 mg capsule 1,000 mg PO DAILY 03/02/23 03/10/23 History ferrous sulfate 325 mg (65 mg 325 mg PO DAILY 03/02/23 03/02/23 History iron) tablet (Iron (ferrous sulfate)) loratadine 10 mg tablet 10 mg PO DAILY 03/02/23 03/10/23 History mecobalamin (vitamin B12) 1,000 1,000 mcg PO DAILY 03/02/23 03/10/23 History mcg chewable tablet (B12 Active) multivitamin 1 tablet PO DAILY 03/02/23 03/10/23 History omeprazole 20 mg capsule,delayed 40 mg PO DAILY 03/02/23 03/10/23 History release rosuvastatin 10 mg tablet 10 mg PO HS 03/02/23 03/10/23 History trazodone 50 mg tablet 50 mg PO HS 03/02/23 03/10/23 History vitamin E 268 mg (400 unit) capsule 268 mg PO DAILY 03/02/23 03/10/23 History Patient hx anesthesia problems: none Family hx anesthesia problems: none Results Review: All pre-operative results and documents have been reviewed as part of the pre-operative evaluation. [facility] Past Medical History Medical History Anxiety no longer on any medications Depression no longer taking medications. GERD (gastroesophageal reflux disease) Obesity Renal disease Surgical History Surgical History History of bunionectomy Hx of tubal ligation Previous section X3 Family History Family History Mother Asthma Hypertension Sibling Asthma Hypertension Sibling Asthma Father Chronic obstructive pulmonary disease He has been Congestive heart failure Social History Social History Social History: the patient recently started a job at [employer]. She is from her but now lives with a significant other. She has 3 children. She stated that her significant other are could be durable power regulatory attorney for healthcare. Patient is a full code. She is a lifelong nonsmoker and rarely uses alcohol. She denies any marijuana or illicit drugs. Smoking status: Never smoker Second hand tobacco smoke exposure: No Alcohol intake: current Alcohol use details: VERY RARE Substance use: never Substance use type: does not use Living arrangements: with friend(s) Gender identity (if verbalized by the patient): Female Sexual Orientation (if Verbalized by the Patient): Straight or Heterosexual Spiritual care concerns: No Anes - Eval Final PreProcedure Day of Procedure 03/09/23 09:30 Patient weight: obese Heart: regular rate and rhythm Lungs: clear to auscultation Airway: Mallampati scale class III Neurological: alert and oriented Last oral intake: >/= 8 hours ASA classification: III Emergent: no Anesthetic plan: proceed Anesthesia type and monitoring: general ETT and standard monitoring Results Review: All pre-operative results and do
[2023-03-10] VITALS (9 sets, daily range): BP systolic 112–143; BP diastolic 57–84; PULSE 72–96; RESP 12–16; TEMP 36.4–37.1; O2SAT 98–100
[2023-03-10] MEDS: ACETAMINOPHEN 500 MG TABLET 1000 MG PO (06:09)
[2023-03-10] MEDS: LACTATED RINGERS 1,000 ML 30 ML IV CONT ×2 (07:02→10:17)
[2023-03-10] MEDS: KETOROLAC 15 MG/ML VIAL (*BKC) IV PUSH (07:04)
--- NOTE | 2023-03-10 07:14 | WPDHPUPDATE1 ---
History and Physical Update Update Date/Time: 03/10/23 07:14 History and Physical has been reviewed, including an updated exam of the patient. There are NO changes in the patient's condition. Risks, benefits, and alternatives have been discussed and questions answered. Patient agrees to proceed with procedure.
[2023-03-10] MEDS: ceFAZolin 2 GM/D5W 50 ML 2 GM/50 ML BAG IVPB (07:32)
[2023-03-10] MEDS: ceFAZolin SODIUM 1 GM VIAL (08:21)
--- NOTE | 2023-03-10 10:42 | W.PM.PROC2 ---
Procedure Note - Detailed Date of Procedure 03/10/23 Pre-op Diagnosis Uterine Leiomyoma, menorrhagia, dysmenorrhea Post-op Diagnosis Same Procedure Performed total laparoscopic hysterectomy and bilateral salpingectomy Surgeon Chema Jewell MD Anesthesia General Indications menorrhagia, dysmenorrhea Findings large fibroid uterus with extensive vascularity, normal-appearing ovaries, normal-appearing tubes Description of Procedure This patient was taken to the operating room. She was prepped and draped in the dorsal lithotomy position after induction of general anesthesia. The uterine manipulator and Hoang cup were placed. This was done with a speculum and tenaculum. The speculum was placed. The cervix was grasped with a tenaculum. The stay sutures were placed at 3 and 9:00 a.m.. The stay sutures of 0 Vicryl were brought through the appropriately sized Hoang cup. The tip of the LORNA manipulator was placed in the intrauterine cavity. The cup was slid into place around the cervix and into the fornices. It was locked into place. The sutures were then wrapped around the handle and tied under tension. A 5 mm skin incision was made in the left upper quadrant the abdomen. A 5 mm trocar was inserted into the intrauterine cavity under direct visualization of the scope. Pneumoperitoneum was achieved. A left lower quadrant 11 mm incision was made with scalpel. An 11 mm trocar was inserted into the anterior abdominal cavity under direct visualization the scope. A 5 mm infraumbilical incision was made with a scalpel and a 5 mm trocar was inserted the intra-abdominal cavity under direct visualization of the scope. Bilateral ureteral lysis was performed. This was done from the pelvic brim down to the uterine artery. This was done with careful dissection using sharp and blunt dissection. The fallopian tubes were removed bilaterally. The mesosalpinx around the fallopian tubes were cauterized transected with LigaSure cautery. This was done in a bilateral fashion from the ovary to the uterine cornua. The fallopian tube was transected at the uterine cornu and amputated. The tube was taken out the left lower quadrant trocar site. In a stepwise fashion along the lateral aspects of the uterus the round ligament and broad ligaments were cauterized transected down to the level of the uterine arteries. A bladder flap was created in the bladder was moved distally to the end of the cervix and over the Hoang cup. The bilateral uterine arteries were cauterized and transected. Colpotomy was then performed. In a circumferential fashion the vagina was transected using unipolar cautery. The incision was made down on the Hoang cup. the uterus is then bifurcated using the unipolar cautery. The uterus and cervix were taken out through the vagina. A pneumo occluder was placed in the vagina. The vaginal cuff was closed with a 0 V lock suture in a running fashion. The pelvis was irrigated with copious amounts antibiotic irrigation. The ureters were again examined and found to be intact and flowing freely under the uterine arteries into the bladder. The bladder was intact. It was examined directly. The vagina was irrigated with Betadine solution after removal of the Pneumo occluder. The patient was taken to recovery room. She was stable condition. Sponge lap and needle counts were correct x2. Estimated Blood Loss -250.0 Urine Output -850.0 Drains Yes Packing No Pathology Yes Complications No immediate complications Condition Stable Disposition Floor
--- NOTE | 2023-03-10 11:14 | PC.NURSE ---
Patient transferred to post room #283 via (stretcher ). Support person present. Oriented to unit, room, information board, rooming in, admission packet and security measures. Patient verbalizes understanding.
[2023-03-10] MEDS: DEXTROSE 5%/0.45% SOD CHL 1,000 ML 125 ML IV CONT (11:27)
[2023-03-10] MEDS: IBUPROFEN 600 MG TABLET PO (14:24)
[2023-03-10] MEDS: ROSUVASTATIN 10 MG TABLET PO (20:57)
[2023-03-11 00:39] VITALS: BP 135/79; PULSE 87; RESP 18; TEMP 37.1; O2SAT 98
[2023-03-11 03:35] VITALS: BP 139/76; PULSE 98; RESP 18; TEMP 36.8; O2SAT 99
[2023-03-11] MEDS: IBUPROFEN 600 MG TABLET PO (07:53)
[2023-03-11] MEDS: LOSARTAN POTASSIUM 50 MG TABLET PO (08:43)
[2023-03-11] MEDS: PANTOPRAZOLE 40 MG TABLET PO (08:43)
[2023-03-11] MEDS: LORATADINE 10 MG TABLET PO (08:43)
[2023-03-11] MEDS: HYDROcodone/acetaminophen (*CRX) 5-325 MG TABLET 1 TAB PO (08:49)
[2023-03-11 09:20] VITALS: BP 136/69; PULSE 85; RESP 16; TEMP 36.9; O2SAT 99
--- NOTE | 2023-03-11 10:21 | PM.GYNPNOP ---
DATA PROGRAMMER - A/P Postoperative Procedures: Procedures Operation Date: 03/10/23 07:30 Actual Procedure Side Surgeon p Total Laparoscopic Hysterectomy with Bilateral Salpingectomy Bilateral Chema Jewell MD Postoperative day: 1 Postoperative status: doing well Postoperative plan: see orders Time Spent With Patient Time: Total time spent is greater than 50% in coordination of care (as documented) at patient's floor/unit and/or counseling patient: Time with patient: less than 15 minutes DATA PROGRAMMER- PN:Subj Post-Op Subjective Date/time seen: 03/11/23 10:21 Subjective: patient reports feeling better, patient has no complaints and pain is well controlled Exam Const: General: healthy appearing, comfortable and no acute distress Resp: Auscultation: clear to auscultation bilaterally, no rales, no rhonchi and no wheezes Cardio: Rate: regular rate Heart sounds: no click, no murmurs and no rubs GI: Inspection: non-distended Auscultation: normal bowel sounds Extrem: General: normal to inspection, no pedal edema and no calf tenderness DATA PROGRAMMER - PN: Obj Data Vital Signs Vital Signs: Vital Signs - 24 hr 03/10/23 10:30 03/10/23 10:45 03/10/23 11:00 Temperature 97.6 F Pulse Rate 83 73 73 Respiratory Rate 12 12 12 Blood Pressure 143/79 H 120/57 L 112/59 L Pulse Oximetry 99 98 98 Oxygen Delivery Simple Face Mask Nasal Cannula Nasal Cannula Oxygen Flow Rate 6 2 2 03/10/23 11:30 03/10/23 11:15 03/10/23 16:30 Temperature 98.7 F Pulse Rate 76 Respiratory Rate 16 Blood Pressure 125/58 L Pulse Oximetry 98 99 Oxygen Delivery Nasal Cannula Room Air Oxygen Flow Rate 2 03/10/23 16:15 03/10/23 19:32 03/11/23 00:39 Temperature 98.1 F 98.1 F 98.8 F Pulse Rate 72 96 87 Respiratory Rate 16 16 18 Blood Pressure 127/75 127/70 135/79 Pulse Oximetry 100 98 98 Oxygen Delivery Oxygen Flow Rate 03/11/23 00:39 03/11/23 03:35 03/11/23 03:35 Temperature 98.2 F Pulse Rate 98 Respiratory Rate 18 Blood Pressure 139/76 Pulse Oximetry 99 Oxygen Delivery Room Air Room Air Oxygen Flow Rate 03/11/23 08:50 Temperature Pulse Rate Respiratory Rate Blood Pressure Pulse Oximetry Oxygen Delivery Room Air Oxygen Flow Rate Intake/Output Intake/Output: Intake & Output 03/08/23 03/09/23 03/10/23 03/11/23 23:59 23:59 23:59 23:59 Intake Total 1200 400 Output Total 460 900 Balance 740 -500 Meds/Results Medications: Active Medications Generic Name Dose Route Start Last Admin Trade Name Freq PRN Reason Stop Dose Admin Hydrocodone Bitart/Acetaminophen 1 tab 03/10/23 11:05 Hydrocodone/Acetaminophen (*Crx) 10-325 Mg Tablet PO Q3H PRN Pain Rated 6 or Greater Hydrocodone Bitart/Acetaminophen 1 tab 03/10/23 11:05 03/11/23 08:49 Hydrocodone/Acetaminophen (*Crx) 5-325 Mg Tablet PO 1 tab Q3H PRN Administration Pain Rated 5 or Less Dextrose/Sodium Chloride 1,000 mls @ 125 mls/hr 03/10/23 11:05 03/11/23 03:31 Dextrose 5% Sodium Chloride 0.45% IV CONT Not Given .Q8H DEJA Ibuprofen 600 mg 03/10/23 11:05 03/11/23 07:53 Ibuprofen 600 Mg Tablet PO 600 mg Q6H PRN Administration Cramping Ketorolac Tromethamine 30 mg 03/10/23 11:05 Ketorolac 30 Mg/Ml Vial (*Bkc) IV PUSH 03/15/23 11:04 Q6H PRN Pain Rated 4-6 Loratadine 10 mg 03/11/23 09:00 03/11/23 08:43 Loratadine 10 Mg Tablet PO 10 mg DAILY DEJA Administration Losartan Potassium 50 mg 03/11/23 09:00 03/11/23 08:43 Losartan Potassium 50 Mg Tablet PO 50 mg DAILY DEJA Administration Naloxone HCl 0.1 mg 03/10/23 11:05 Naloxone Hcl 0.4 Mg/Ml Vial IV PUSH Q2M PRN Respiratory rate less than 10 Ondansetron HCl 4 mg 03/10/23 11:05 Ondansetron Inj 4 Mg/2 Ml Vial IV PUSH Q6H PRN Nausea And Vomiting Pantoprazole Sodium 40 mg 03/11/23 09:00 03/11/23 08:43 Pantoprazole 40 Mg Tablet PO 04/10/23 08:59 40 mg DAILY DEJA
== END 2023-03-11 11:02 | disposition home or self-care (01) ==
LOC: ANHSURGERY 05:54 → ANHOB2 11:19
PROVIDERS: PCP Nurse Practitioner; Visit Provider Obstetrics & Gynecology
PROC: 0UT9FZZ Resection of Uterus, Via Natural or Artificial Opening With Percutaneous Endoscopic Assistance (ICD-10-PCS; CPT 58554; principal; 2023-03-10 07:30)
DX: D25.9 Leiomyoma of uterus, unspecified (principal); N83.8 Other noninflammatory disorders of ovary, fallopian tube and broad ligament; N92.0 Excessive and frequent menstruation with regular cycle; N94.6 Dysmenorrhea, unspecified; I10 Essential (primary) hypertension; E78.00 Pure hypercholesterolemia, unspecified
CPT/HCPCS: 58554; 36415; 80053; 85014; 85018; 86850; 86900; 86901; 88307; 93005; 99199; A9270; J0690; J1100; J1170; J1885; J2250; J2405; J2704; J3010; J7030; J7120

== ENCOUNTER 2024-02-03 13:32 | Emergency (ER) | payer OTHER, SELFPAY ==
--- NOTE | ~2024-02-03 | XR_ITS ---
Clinical Indication: Cough PA and lateral views of the chest: Comparison: None Findings: Patchy right middle lobe and right upper lobe airspace disease is consistent with pneumonia .. Left lung clear Cardiomediastinal silhouette is within normal limits. Bones and soft tissues are u nremarkable. Impression: Patchy right upper lobe and right middle lobe pneumonia. Reviewed, dictated and finalized at location . Impression: Patchy right upper lobe and right middle lobe pneumonia.
--- NOTE | 2024-02-03 13:37 | ED.URI ---
HPI - URI/Sore Throat General Chief Complaint: Upper Respiratory Infection Stated Complaint: cough,bodyaches,congested,diarrhea,vomiting Time Seen by Provider: 02/03/24 14:05 Source: patient and RN notes reviewed Mode of arrival: ambulatory Limitations: no limitations History of Present Illness HPI Narrative: 43-year-old female presents with concern for cough, body aches, congestion, diarrhea, vomiting. Reports she was seen in urgent care a couple weeks ago for this same issue and was prescribed doxycycline, steroids, inhaler, Tessalon Perles. Reports she finished those medications with no improvement. Reports her symptoms are worsening. MD elicited complaint: cough Related Data Home Medications Medication Instructions Recorded Confirmed ascorbic acid (vitamin C) 1,000 mg 1 g PO DAILY 03/02/23 02/03/24 tablet (Vitamin C) cholecalciferol (vitamin D3) 125 125 mcg PO DAILY 03/02/23 02/03/24 mcg (5,000 unit) tablet (Vitamin D3) evening primrose oil 500 mg capsule 1,000 mg PO DAILY 03/02/23 02/03/24 ferrous sulfate 325 mg (65 mg 325 mg PO DAILY 03/02/23 02/03/24 iron) tablet (Iron (ferrous sulfate)) loratadine 10 mg tablet 10 mg PO DAILY 03/02/23 02/03/24 mecobalamin (vitamin B12) 1,000 1,000 mcg PO DAILY 03/02/23 02/03/24 mcg chewable tablet (B12 Active) multivitamin 1 tablet PO DAILY 03/02/23 02/03/24 omeprazole 20 mg capsule,delayed 40 mg PO DAILY 03/02/23 02/03/24 release rosuvastatin 10 mg tablet 10 mg PO HS 03/02/23 02/03/24 trazodone 50 mg tablet 50 mg PO HS 03/02/23 02/03/24 vitamin E 268 mg (400 unit) capsule 268 mg PO DAILY 03/02/23 02/03/24 Allergies Allergy/AdvReac Type Severity Reaction Status Date / Time shellfish derived Allergy Severe Swelling Verified 02/03/24 13:45 of Lip/Tongue/Throat WASP AdvReac Severe Swelling Uncoded 02/03/24 13:45 Review of Systems Review of Systems: CONSTITUTIONAL: Reports malaise, chills EYES: Denies visual changes, redness, or discharge. ENT: Denies rhinorrhea, congestion, sinus pain, otalgia and sore throat. CARDIOVASCULAR: Denies chest pain, palpitations, or edema. RESPIRATORY: Reports cough, dyspnea. GASTROINTESTINAL: Denies abdominal pain. Reports nausea, vomiting, diarrhea SKIN: Denies rash or itching. MUSCULOSKELETAL: Reports myalgia. NEUROLOGIC: Reports headache. All systems reviewed & are unremarkable except as noted in HPI and below PMFSH Past Medical History Medical History Anxiety no longer on any medications Depression no longer taking medications. GERD (gastroesophageal reflux disease) Obesity Renal disease Surgical History Surgical History History of bunionectomy Hx of tubal ligation Previous section X3 Family History Family History Mother Asthma Hypertension Sibling Asthma Hypertension Sibling Asthma Father Chronic obstructive pulmonary disease He has been Congestive heart failure Social History Social History Social History: the patient recently started a job at [employer]. She is from her but now lives with a significant other. She has 3 children. She stated that her significant other are could be durable power business attorney for healthcare. Patient is a full code. She is a lifelong nonsmoker and rarely uses alcohol. She denies any marijuana or illicit drugs. Smoking status: Never smoker Second hand tobacco smoke exposure: No Alcohol intake: current Alcohol use details: VERY RARE Substance use: never Substance use type: does not use Living arrangements: with friend(s) Gender identity (if verbalized by the patient): Female Sexual Orientation (if Verbalized by the Patient): Straight or Heterosexual Spiri
[2024-02-03 13:45] VITALS: BP 147/78; PULSE 103; RESP 16; TEMP 37.6; O2SAT 91
[2024-02-03 13:47] VITALS: BP 147/78; PULSE 103; RESP 16; TEMP 37.6; O2SAT 91
[2024-02-03] MEDS: IPRATROPIUM BR 0.02% INH SOLN 0.5 MG/2.5 ML VIAL INHALATION (14:11)
[2024-02-03] MEDS: ALBUTEROL SULFATE NEB 2.5 MG/3 ML INH INHALATION (14:11)
== END 2024-02-03 14:49 | disposition home or self-care (01) ==
PROVIDERS: Emergency Provider Nurse Practitioner; PCP Nurse Practitioner
DX: J18.1 Lobar pneumonia, unspecified organism (principal); Z20.822 Contact with and (suspected) exposure to COVID-19; K21.9 Gastro-esophageal reflux disease without esophagitis; E66.9 Obesity, unspecified; Z68.34 Body mass index [BMI] 34.0-34.9, adult
CPT/HCPCS: 71046; 87426; 87804; 94640; 99213; G0463

== ENCOUNTER 2024-11-14 16:53 | Emergency (ER) | payer OTHER, SELFPAY ==
[2024-11-14 17:03] VITALS: BP 169/79; PULSE 76; RESP 16; TEMP 35.8; O2SAT 99
--- NOTE | 2024-11-14 17:30 | ED.BACK ---
HPI - Back Pain/Injury General Chief Complaint: Back Pain/Injury Stated Complaint: Back Pain Time Seen by Provider: 11/14/24 17:21 Source: patient and RN notes reviewed Mode of arrival: ambulatory Limitations: no limitations History of Present Illness HPI Narrative: Patient presents today complaining of left-sided mid to upper back pain that started yesterday. 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 Denies radiation of the pain. Denies any numbness, but reports some tingling, ?all over my back. ? She currently rates her pain 05/04 and has been taking ibuprofen and hot baths with short term relief. Related Data Home Medications ?Medication ?Instructions ?Recorded ?Confirmed ?Last Taken ?Type ascorbic acid (vitamin C) 1,000 mg 1 g PO DAILY 03/02/23 02/03/24 03/06/23 History tablet (Vitamin C) cholecalciferol (vitamin D3) 125 125 mcg PO DAILY 03/02/23 02/03/24 03/06/23 History mcg (5,000 unit) tablet (Vitamin D3) evening primrose oil 500 mg capsule 1,000 mg PO DAILY 03/02/23 02/03/24 03/06/23 History ferrous sulfate 325 mg (65 mg 325 mg PO DAILY 03/02/23 02/03/24 Unknown History iron) tablet (Iron (ferrous sulfate)) loratadine 10 mg tablet 10 mg PO DAILY 03/02/23 02/03/24 03/09/23 History mecobalamin (vitamin B12) 1,000 1,000 mcg PO DAILY 03/02/23 02/03/24 03/06/23 History mcg chewable tablet (B12 Active) multivitamin 1 tablet PO DAILY 03/02/23 02/03/24 03/06/23 History omeprazole 20 mg capsule,delayed 40 mg PO DAILY 03/02/23 02/03/24 03/06/23 History release vitamin E 268 mg (400 unit) capsule 268 mg PO DAILY 03/02/23 02/03/24 03/06/23 History albuterol sulfate 90 mcg/actuation inhalation 11/14/24 Unknown History aerosol inhaler Allergies Allergy/AdvReac Type Severity Reaction Status Date / Time shellfish derived Allergy Severe Swelling Verified 11/14/24 17:15 of Lip/Tongue/Throat WASP AdvReac Severe Swelling Uncoded 11/14/24 17:15 Review of Systems Review of Systems: CONSTITUTIONAL: Denies body aches, fever, chills, or sweats. EYES: Denies visual changes, redness, or discharge. ENT: Denies rhinorrhea, congestion, sore throat, or otalgia. CARDIOVASCULAR: Denies chest pain, palpitations, or edema. RESPIRATORY: Denies cough or dyspnea. GASTROINTESTINAL: Denies abdominal pain, nausea, vomiting, or diarrhea. GENITOURINARY: Denies dysuria or hematuria. SKIN: Denies rash, itching, or wounds. MUSCULOSKELETAL: Denies joint pain, or myalgia.+ back pain NEUROLOGIC: Denies headache, numbness, tingling, or weakness. PSYCH: Denies depression or anxiety. [facility] Past Medical History Medical History Obesity Anxiety no longer on any medications Depression no longer taking medications. Renal disease GERD (gastroesophageal reflux disease) Surgical History Surgical History History of bunionectomy Previous section X3 Hx of tubal ligation Family History Family History Mother Asthma Hypertension Sibling Asthma Hypertension Sibling Asthma Father Chronic obstructive pulmonary disease He has been Congestive heart failure Social History Social History Social History: the patient recently started a job at [employer]. She is from her but now lives with a significant other. She has 3 children. She stated that her significant other are could be durable power corporate associate attorney for healthcare. Patient is a full code. She is a lifelong nonsmoker and rarely uses alcohol. She denies any marijuana or illicit drugs. Smoking status: Never smoker Second hand tobacco smoke exposure: No Alcohol intake: current Alcohol use details: VERY RARE Substance use: never Substance use type: does not use Living arrangements: with friend(s) Gender identity (if verbalized by the patient): Female Sexual Orientation (if Verbalized by the Patient): Straight or Heterosexual Spiritual care concerns: No Comments At time of signature, I have reviewed and agree with nursing past medical, surgical, social and family history unless otherwise noted. Please see nursing chart for further information. There is no relevant family history pertinent to the presenting complaint Exam Narrative: GENERAL: Well-appearing, well-nourished, and in no acute distress. HEAD: Normocephalic, atraumatic. EYES: EOMI. No redness or drainage. Conjunctivae normal. ENT: Mucous membranes pink and moist. NECK: Normal AROM. Neck is nontender CHEST: No respiratory distress. MUSCULOSKELETAL: No bony tenderness of the thoracic or lumbar spine. Patient has tenderness the left thoracic spine throughout. Right side is nontender. Lumbar spine and paraspinal muscles are nontender. Distal sensation intact in bilateral hands. Bilateral hand wireworker equal and strong. Radial pulses normal. EXTREMITIES: Normal range of motion. No edema. SKIN: Warm, dry, no rash. Capillary refill normal. Normal skin turgor. NEURO: No focal deficits. Alert and oriented x3. Gait steady. PSYCH: Normal affect. No signs of depression or anxiety. Course Course Level of Care: Express Care Visit Vital Signs Vital signs: Vital Signs Temperature 96.5 F L 11/14/24 17:03 Pulse Rate 76 11/14/24 17:03 Respiratory Rate 16 11/14/24 17:03 Blood Pressure 169/79 H 11/14/24 17:03 Pulse Oximetry 99 11/14/24 17:03 Oxygen Delivery Room Air 11/14/24 17:03 Temperature 96.5 F L 11/14/24 17:03 Pulse Rate 76 11/14/24 17:03 Respiratory Rate 16 11/14/24 17:03 Blood Pressure 169/79 H 11/14/24 17:03 Pulse Oximetry 99 11/14/24 17:03 Oxygen Delivery Room Air 11/14/24 17:03 Reviewed MDM - Back Pain/Injury MDM Narrative Medical decision making narrative: Patient will be treated for her thoracic back strain with Flexeril, prednisone, and diclofenac. Discussed decreased lifting and physical activity for the next couple of days may be beneficial as well. Anticipatory guidance given. Differential Diagnosis Differential diagnosis: Likely thoracic back pain and other (Muscle spasm) Critical Care Time Critical Care Time Critical Care Time: No Discharge Plan Discharge Clinical Impression: Strain of thoracic back region Patient Disposition: Home, Self-Care Condition: Stable Instructions: Thoracic Back Strain (ED) Additional Instructions: Please take all medications as prescribed. Do not drive within 8 hours of taking the Flexeril as it can make you drowsy. Follow-up with your PCP in 5-7 days if symptoms are not improving. Your blood pressure was elevated above 120/80 today at Urgent Care. This puts you above the threshold for follow up. Please schedule a followup visit with your personal physician as soon as possible, for further evaluation and treatment. Even blood pressure exceeding 120/80 may indicate pre-hypertension. Patient Language: Yoruba Prescriptions: New cyclobenzaprine 10 mg tablet 10 mg PO TID PRN (Reason: muscle spasm) Qty: 20 0RF prednisone 50 mg tablet 50 mg PO DAILY 5 Days Qty: 5 0RF diclofenac sodium 50 mg tablet,delayed release (DR/EC) 50 mg PO TID PRN (Reason: pain) Qty: 20 0RF No Action albuterol sulfate 90 mcg/actuation HFA aerosol inhaler INHALATION multivitamin Tablet 1 tablet PO DAILY ascorbic acid (vitamin C) [Vitamin C] 1,000 mg Tablet 1 g PO DAILY evening primrose oil 500 mg Capsule 1,000 mg PO DAILY Rx Instructions: give with meal/snack ferrous sulfate [Iron (ferrous sulfate)] 325 mg (65 mg iron) Tablet 325 mg PO DAILY omeprazole 20 mg Capsule,Delayed Release(Dr/Ec) 40 mg PO DAILY vitamin E 268 mg (400 unit) Capsule 268 mg PO DAILY loratadine 10 mg Tablet 10 mg PO DAILY cholecalciferol (vitamin D3) [Vitamin D3] 125 mcg (5,000 unit) Tablet 125 mcg PO DAILY mecobalamin (vitamin B12) [B12 Active] 1,000 mcg Tablet,Chewable 1,000 mcg PO DAILY Follow-up/Referrals: Zeina,IGNACIO Katz [Primary Care Provider] - Stand Alone Forms: Work/School Release IP Time of Disposition: 17:35
== END 2024-11-14 17:40 | disposition home or self-care (01) ==
PROVIDERS: Emergency Provider Nurse Practitioner; PCP Nurse Practitioner
DX: S29.012A Strain of muscle and tendon of back wall of thorax, initial encounter (principal); X58.XXXA Exposure to other specified factors, initial encounter; K21.9 Gastro-esophageal reflux disease without esophagitis; E66.9 Obesity, unspecified; Z68.32 Body mass index [BMI] 32.0-32.9, adult
CPT/HCPCS: 99213; G0463

== ENCOUNTER 2024-12-20 08:47 | Emergency (ER) | payer OTHER, SELFPAY ==
[2024-12-20 09:05] VITALS: BP 158/90; PULSE 91; RESP 16; TEMP 36.1; O2SAT 99
--- NOTE | 2024-12-20 09:16 | ED.HA ---
HPI - Headache General Chief Complaint: Headache Stated Complaint: RIDLEY Time Seen by Provider: 12/20/24 09:16 Source: patient, RN notes reviewed and old records reviewed Mode of arrival: ambulatory Limitations: no limitations History of Present Illness HPI Narrative: Patient presents with complaints of headache. She reports that headache has been present intermittently for the past month. She says that she has tried multiple [id number] medications with poor relief. She does state that she has some cyclobenzaprine and diclofenac at home, she has not tried either 1 of these. She further admits that she has not taken any blood pressure medications for at least 1 year. States that she has a PCP appointment in January and plans to get back on her medication at that time. She denies any injury or trauma. She voices no other concerns or complaints Related Data Home Medications ?Medication ?Instructions ?Recorded ?Confirmed ?Last Taken ?Type ascorbic acid (vitamin C) 1,000 mg 1 g PO DAILY 03/02/23 02/03/24 03/06/23 History tablet (Vitamin C) cholecalciferol (vitamin D3) 125 125 mcg PO DAILY 03/02/23 02/03/24 03/06/23 History mcg (5,000 unit) tablet (Vitamin D3) evening primrose oil 500 mg capsule 1,000 mg PO DAILY 03/02/23 02/03/24 03/06/23 History ferrous sulfate 325 mg (65 mg 325 mg PO DAILY 03/02/23 02/03/24 Unknown History iron) tablet (Iron (ferrous sulfate)) loratadine 10 mg tablet 10 mg PO DAILY 03/02/23 02/03/24 03/09/23 History mecobalamin (vitamin B12) 1,000 1,000 mcg PO DAILY 03/02/23 02/03/24 03/06/23 History mcg chewable tablet (B12 Active) multivitamin 1 tablet PO DAILY 03/02/23 02/03/24 03/06/23 History omeprazole 20 mg capsule,delayed 40 mg PO DAILY 03/02/23 02/03/24 03/06/23 History release vitamin E 268 mg (400 unit) capsule 268 mg PO DAILY 03/02/23 02/03/24 03/06/23 History albuterol sulfate 90 mcg/actuation inhalation 11/14/24 Unknown History aerosol inhaler Allergies Allergy/AdvReac Type Severity Reaction Status Date / Time shellfish derived Allergy Severe Swelling Verified 12/20/24 09:19 of Lip/Tongue/Throat WASP AdvReac Severe Swelling Uncoded 12/20/24 09:19 Review of Systems Review of Systems: All systems reviewed & are unremarkable except as noted in HPI and below Constitutional: Constitutional: Reports no additional constitutional complaints and Reports headache(s) ENT: Reports system reviewed and no additional complaints, except as documented Cardiovascular: Cardiovascular: Reports no additional cardiovascular complaints Respiratory: Respiratory: Reports no additional respiratory complaints Gastrointestinal: Gastrointestinal: Reports no additional gastrointestinal complaints Musculoskeletal: Musculoskeletal: Reports neck pain and Denies tingling Neurologic: Denies dizziness, Denies focal weakness, Denies loss of vision and Denies numbness PMFSH Past Medical History Medical History Obesity Anxiety no longer on any medications Depression no longer taking medications. Renal disease GERD (gastroesophageal reflux disease) Surgical History Surgical History History of bunionectomy Previous section X3 Hx of tubal ligation Family History Family History Mother Asthma Hypertension Sibling Asthma Hypertension Sibling Asthma Father Chronic obstructive pulmonary disease He has been Congestive heart failure Social History Social History Social History: the patient recently started a job at [employer]. She is from her but now lives with a significant other. She has 3 children. She stated that her significant other are could be durable power estate planning attorney for healthcare. Patient is a full code. She is a lifelong nonsmoker and rarely uses alcohol. She denies any marijuana or illicit drugs. Smoking status: Never smoker Second hand tobacco smoke exposure: No Alcohol intake: current Alcohol use details: VERY RARE Substance use: never Substance use type: does not use Living arrangements: with friend(s) Gender identity (if verbalized by the patient): Female Sexual Orientation (if Verbalized by the Patient): Straight or Heterosexual Spiritual care concerns: No Comments At the time of my signature, I reviewed and agree with the nursing past medical, surgical, social, and family history. There is no relevant family history pertinent to the patient complaint. Exam Const: General: cooperative, no acute distress, alert and awake Orientation/consciousness: oriented to person, oriented to place and oriented to time HENMT: Head: normal to inspection Ears: TM's normal bilaterally Face/Nose/Sinus: No sinus tenderness Mouth: Yes moist mucous membranes Neck: Neck: full ROM and other (muscle spasms) Resp: Effort & Inspection: normal respiratory effort and able to speak in complete sentences Auscultation: clear to auscultation bilaterally, no crackles, no rales, no rhonchi and no wheezes Cardio: Palpation: normal PMI Rate: regular rate Rhythm: regular rhythm Heart sounds: S1 normal heart sound present and S2 normal heart sound present Neuro: General: oriented to person, oriented to place and oriented to time Cranial nerves: Yes CN's II-XII intact bilaterally Psych: Appearance: grossly normal Thought process: Normal thought process present Insight: Good insight present (Psych) Judgement: Good judgement present (Psych) Course Course Level of Care: Express Care Visit Vital Signs Vital signs: Vital Signs Temperature 97.0 F L 12/20/24 09:05 Pulse Rate 91 12/20/24 09:05 Respiratory Rate 16 12/20/24 09:05 Blood Pressure 158/90 H 12/20/24 09:05 Pulse Oximetry 99 12/20/24 09:05 Oxygen Delivery Room Air 12/20/24 09:05 Temperature 97.0 F L 12/20/24 09:05 Pulse Rate 91 12/20/24 09:05 Respiratory Rate 16 12/20/24 09:05 Blood Pressure 158/90 H 12/20/24 09:05 Pulse Oximetry 99 12/20/24 09:05 Oxygen Delivery Room Air 12/20/24 09:05 Reviewed MDM - Headache MDM Narrative Medical decision making narrative: Patient with no neurological deficits, no exam findings pointing to sinusitis. She is complaining of headache. Importance of managing hypertension was discussed. She was given a Toradol injection, advised to take cyclobenzaprine per prescriber instructions once she gets home. Emergency department precautions discussed. Discharge instructions reviewed with patient, as well as provided in writing per nursing staff. The instructions also include specific and strict return/GO TO THE ER as well as f/u information. All questions have been answered, and the patient deny any further questions with discharge and discharge plan. Some parts of this dictation were generated by voice recognition software and may contain typographical and/or grammatical inaccuracies. Differential Diagnosis Differential diagnosis: Likely migraine, tension headache, headache and sinusitis Medical Records Attestation: I reviewed the patient's medical records. Discharge Plan Discharge Clinical Impression: Elevated blood pressure reading Headache Qualifiers: Headache type: unspecified Headache chronicity pattern: acute headache Intractability: not intractable Qualified Code(s): R51.9 - Headache, unspecified Patient Disposition: Home, Self-Care Condition: Stable Instructions: Antibiotic Form, Acute Headache (ED) Additional Instructions: Use medications as prescribed. Follow-up with primary care provider without fail. Emergency department for new or worse symptoms Patient Language: Eritrean Prescriptions: No Action albuterol sulfate 90 mcg/actuation HFA aerosol inhaler INHALATION cyclobenzaprine 10 mg tablet 10 mg PO TID PRN (Reason: muscle spasm) Qty: 20 0RF diclofenac sodium 50 mg tablet,delayed release (DR/EC) 50 mg PO TID PRN (Reason: pain) Qty: 20 0RF multivitamin Tablet 1 tablet PO DAILY ascorbic acid (vitamin C) [Vitamin C] 1,000 mg Tablet 1 g PO DAILY evening primrose oil 500 mg Capsule 1,000 mg PO DAILY Rx Instructions: give with meal/snack ferrous sulfate [Iron (ferrous sulfate)] 325 mg (65 mg iron) Tablet 325 mg PO DAILY omeprazole 20 mg Capsule,Delayed Release(Dr/Ec) 40 mg PO DAILY vitamin E 268 mg (400 unit) Capsule 268 mg PO DAILY loratadine 10 mg Tablet 10 mg PO DAILY cholecalciferol (vitamin D3) [Vitamin D3] 125 mcg (5,000 unit) Tablet 125 mcg PO DAILY mecobalamin (vitamin B12) [B12 Active] 1,000 mcg Tablet,Chewable 1,000 mcg PO DAILY Follow-up/Referrals: PHYSICIAN,SLOT FLOOR PERSON [Primary Care Provider] - 1 Week Stand Alone Forms: Work/School Release IP Time of Disposition: 10:13
[2024-12-20] MEDS: KETOROLAC (*BKC) 60 MG/2 ML VIAL IM (09:40)
== END 2024-12-20 10:20 | disposition home or self-care (01) ==
PROVIDERS: Emergency Provider Nurse Practitioner Family
DX: R03.0 Elevated blood-pressure reading, without diagnosis of hypertension (principal); R51.9 Headache, unspecified; K21.9 Gastro-esophageal reflux disease without esophagitis; E66.9 Obesity, unspecified; Z68.34 Body mass index [BMI] 34.0-34.9, adult
CPT/HCPCS: 96372; 99213; G0463; J1885

== ENCOUNTER 2025-03-31 13:11 | Emergency (ER) | payer OTHER, SELFPAY ==
[2025-03-31 13:18] VITALS: BP 152/102; PULSE 82; RESP 16; TEMP 36.7; O2SAT 98
--- NOTE | 2025-03-31 14:07 | ED.GENADULT ---
HPI - General Adult General Chief complaint: Headache Stated complaint: Headache Time Seen by Provider: 03/31/25 14:07 Source: patient, RN notes reviewed and old records reviewed Mode of arrival: ambulatory Limitations: no limitations History of Present Illness HPI narrative: 44-year-old female presents to the [facility] with complaints of a migraine headache. States it feels like her typical migraine. States that started on Thursday, 3 days ago. Has tried her prescription medication as well as [id number] medications. Patient reports no relief. States that she is sensitive to light. Denies any neuro deficits. Related Data Home Medications ?Medication ?Instructions ?Recorded ?Confirmed ?Last Taken ?Type ascorbic acid (vitamin C) 1,000 mg 1 g PO DAILY 03/02/23 02/03/24 03/06/23 History tablet (Vitamin C) cholecalciferol (vitamin D3) 125 125 mcg PO DAILY 03/02/23 02/03/24 03/06/23 History mcg (5,000 unit) tablet (Vitamin D3) evening primrose oil 500 mg capsule 1,000 mg PO DAILY 03/02/23 02/03/24 03/06/23 History ferrous sulfate 325 mg (65 mg 325 mg PO DAILY 03/02/23 02/03/24 Unknown History iron) tablet (Iron (ferrous sulfate)) loratadine 10 mg tablet 10 mg PO DAILY 03/02/23 02/03/24 03/09/23 History mecobalamin (vitamin B12) 1,000 1,000 mcg PO DAILY 03/02/23 02/03/24 03/06/23 History mcg chewable tablet (B12 Active) multivitamin 1 tablet PO DAILY 03/02/23 02/03/24 03/06/23 History omeprazole 20 mg capsule,delayed 40 mg PO DAILY 03/02/23 02/03/24 03/06/23 History release vitamin E 268 mg (400 unit) capsule 268 mg PO DAILY 03/02/23 02/03/24 03/06/23 History albuterol sulfate 90 mcg/actuation inhalation 11/14/24 Unknown History aerosol inhaler atorvastatin 20 mg tablet mg 03/31/25 Unknown History famotidine 40 mg tablet mg 03/31/25 Unknown History losartan 100 mg tablet mg 03/31/25 Unknown History metformin 500 mg tablet mg 03/31/25 Unknown History sumatriptan succinate 50 mg tablet mg PO 03/31/25 Unknown History trazodone 50 mg tablet mg 03/31/25 Unknown History Allergies Allergy/AdvReac Type Severity Reaction Status Date / Time shellfish derived Allergy Severe Swelling Verified 03/31/25 13:20 of Lip/Tongue/Throat WASP AdvReac Severe Swelling Uncoded 03/31/25 13:20 Review of Systems Review of Systems: All systems reviewed & are unremarkable except as noted in HPI and below Constitutional: Constitutional: Reports no additional constitutional complaints ENT: Reports system reviewed and no additional complaints, except as documented Cardiovascular: Cardiovascular: Reports no additional cardiovascular complaints, Denies chest pain and Denies dyspnea Musculoskeletal: Musculoskeletal: Reports no additional musculoskeletal complaints Integumentary/Breasts: Skin/Breast: Reports system reviewed and no additional complaints, except as docu Neurologic: Reports as per HPI, Denies dizziness, Reports headache(s) and Denies focal weakness PMFSH Past Medical History Medical History Obesity Anxiety no longer on any medications Depression no longer taking medications. Renal disease GERD (gastroesophageal reflux disease) Surgical History Surgical History History of bunionectomy Previous section X3 Hx of tubal ligation Family History Family History Mother Asthma Hypertension Sibling Asthma Hypertension Sibling Asthma Father Chronic obstructive pulmonary disease He has been Congestive heart failure Social History Social History Social History: the patient recently started a job at [employer]. She is from her but now lives with a significant other. She has 3 children. She stated that her significant other are could be durable power supervisor costuming for healthcare. Patient is a full code. She is a lifelong nonsmoker and rarely uses alcohol. She denies any marijuana or illicit drugs. Smoking status: Never smoker Second hand tobacco smoke exposure: No Alcohol intake: current Alcohol use details: VERY RARE Substance use: never Substance use type: does not use Living arrangements: with friend(s) Gender identity (if verbalized by the patient): Female Sexual Orientation (if Verbalized by the Patient): Straight or Heterosexual Spiritual care concerns: No Comments At the time of my signature, I reviewed and agree with the nursing past medical, surgical, social, and family history. There is no relevant family history pertinent to the patient complaint. Exam Const: General: cooperative, healthy appearing, comfortable, no acute distress, well developed, alert and well nourished Nutritional Appearance: well nourished Orientation/consciousness: patient oriented x3 Limitations: no limitations HENMT: Head: normal to inspection Ears: hearing grossly normal bilaterally, external ears normal, TM's normal bilaterally, EAC's normal, mastoids normal and no periauricular adenopathy Mouth: Yes Normal oral and palatal mucosa present, Yes tongue normal and Yes moist mucous membranes Throat: posterior oropharynx normal, uvula midline and no uvular edema Eyes: General: appearance normal, both eyes and all related structures Alignment and Position: alignment normal Neck: Neck: normal visual inspection, full ROM, no lymphadenopathy and no meningeal signs Chest: Chest palpation & inspection: normal inspection of the chest Resp: Effort & Inspection: normal respiratory effort and able to speak in complete sentences Auscultation: clear to auscultation bilaterally, no crackles, no rales, no rhonchi and no wheezes Cardio: Rate: regular rate Skin: General skin exam: normal color and no rashes or lesions noted Neuro: General: patient oriented x3, gait normal, tone normal, moves all extremities, no meningeal signs and no focal motor deficits Cognition (Neuro): normal cognition Speech: normal speech Gait exam (Neuro): Normal gait present Motor exam (neuro): 5/5 motor strength present throughout, Pronator motor function not present and Motor abnormalities not present Extrem: General: normal to inspection, full ROM, capillary refill normal and normal gait Psych: Appearance: grossly normal and well kempt Mental Status: mental status grossly normal Speech and movement: Normal speech and movement present and Clear speech present Affect: normal affect Attitude: cooperative Course Course Level of Care: Express Care Visit Vital Signs Vital signs: Vital Signs Temperature 98.1 F 03/31/25 13:18 Pulse Rate 82 03/31/25 13:18 Respiratory Rate 16 03/31/25 13:18 Blood Pressure 152/102 H 03/31/25 13:18 Pulse Oximetry 98 03/31/25 13:18 Oxygen Delivery Room Air 03/31/25 13:18 Temperature 98.1 F 03/31/25 13:18 Pulse Rate 82 03/31/25 13:18 Respiratory Rate 16 03/31/25 13:18 Blood Pressure 152/102 H 03/31/25 13:18 Pulse Oximetry 98 03/31/25 13:18 Oxygen Delivery Room Air 03/31/25 13:18 Reviewed Medical Decision Making MDM Narrative Medical decision making narrative: Patient sitting in exam room. Patient is nontoxic, vitals are stable except blood pressure mildly elevated. Patient presents with a typical migraine unable to get relief with [id number] medications and prescription medications. Shot of Toradol given in clinic. Patient reports some relief. Patient appropriate for outpatient treatment with strict signs and symptoms to proceed to the emergency room which she verbalized understanding. Two day work note given Discharge instructions reviewed with patient, as well as provided in writing per nursing staff. The instructions also include specific and strict return/GO TO THE ER as well as f/u information. All questions have been answered, and the patient deny any further questions with discharge and discharge plan. Some parts of this dictation were generated by voice recognition software and may contain typographical and/or grammatical inaccuracies. Differential Diagnosis Differential Diagnosis: Headache, migraine Medical Records Medical records reviewed: Yes I reviewed the external patient's medical records. Vital Signs Vital Signs: Vital Signs Temperature 98.1 F 03/31/25 13:18 Pulse Rate 82 03/31/25 13:18 Respiratory Rate 16 03/31/25 13:18 Blood Pressure 152/102 H 03/31/25 13:18 Pulse Oximetry 98 03/31/25 13:18 Oxygen Delivery Room Air 03/31/25 13:18 Temperature 98.1 F 03/31/25 13:18 Pulse Rate 82 03/31/25 13:18 Respiratory Rate 16 03/31/25 13:18 Blood Pressure 152/102 H 03/31/25 13:18 Pulse Oximetry 98 03/31/25 13:18 Oxygen Delivery Room Air 03/31/25 13:18 Reviewed Lab Data Lab results reviewed: Yes I reviewed the patient's lab results. Labs: Reviewed Critical Care Time Critical Care Time Critical Care Time: No Discharge Plan Discharge Clinical Impression: Headache Qualifiers: Headache type: unspecified Patient Disposition: Home Condition: Stable Instructions: Antibiotic Form, Migraine Headache (ED), Acute Headache (ED) Additional Instructions: Rest cool dark room. Take Motrin, Tylenol as needed for pain Follow-up with primary care provider For new or worsening symptoms go directly to the emergency room Patient Language: Welsh Prescriptions: No Action albuterol sulfate 90 mcg/actuation HFA aerosol inhaler INHALATION cyclobenzaprine 10 mg tablet 10 mg PO TID PRN (Reason: muscle spasm) Qty: 20 0RF diclofenac sodium 50 mg tablet,delayed release (DR/EC) 50 mg PO TID PRN (Reason: pain) Qty: 20 0RF metformin 500 mg tablet atorvastatin 20 mg tablet trazodone 50 mg tablet famotidine 40 mg tablet sumatriptan succinate 50 mg tablet PO losartan 100 mg tablet multivitamin Tablet 1 tablet PO DAILY ascorbic acid (vitamin C) [Vitamin C] 1,000 mg Tablet 1 g PO DAILY evening primrose oil 500 mg Capsule 1,000 mg PO DAILY Rx Instructions: give with meal/snack ferrous sulfate [Iron (ferrous sulfate)] 325 mg (65 mg iron) Tablet 325 mg PO DAILY omeprazole 20 mg Capsule,Delayed Release(Dr/Ec) 40 mg PO DAILY vitamin E 268 mg (400 unit) Capsule 268 mg PO DAILY loratadine 10 mg Tablet 10 mg PO DAILY cholecalciferol (vitamin D3) [Vitamin D3] 125 mcg (5,000 unit) Tablet 125 mcg PO DAILY mecobalamin (vitamin B12) [B12 Active] 1,000 mcg Tablet,Chewable 1,000 mcg PO DAILY Follow-up/Referrals: Krystyna,JOSÉ ANTONIO Colindres [Primary Care Provider] - 1 Week ([facility] follow-up) Stand Alone Forms: Work/School Release IP Time of Disposition: 14:26
[2025-03-31] MEDS: KETOROLAC (*BKC) 60 MG/2 ML VIAL IM (14:15)
== END 2025-03-31 14:35 | disposition home or self-care (01) ==
PROVIDERS: Emergency Provider Nurse Practitioner; PCP Physician Assistant
DX: R51.9 Headache, unspecified (principal); N28.9 Disorder of kidney and ureter, unspecified; K21.9 Gastro-esophageal reflux disease without esophagitis; E66.9 Obesity, unspecified; Z68.34 Body mass index [BMI] 34.0-34.9, adult
CPT/HCPCS: 96372; 99213; G0463; J1885

== ENCOUNTER 2025-04-02 09:13 | Emergency (ER) | payer OTHER, SELFPAY ==
[2025-04-02 09:14] VITALS: BP 177/113; PULSE 87; RESP 16; TEMP 36.9; O2SAT 98
--- OUTSIDE RECORDS SUMMARY | 2025-04-02 09:15 | XMS_ITS | Data Portability ---
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 Plan of Treatment Reminders Order Date Submit Date Provider Last Modified By Organization Details Last Modified Time Details Appointments None recorded. Lab None recorded. Referral None recorded. Procedures None recorded. Surgeries total hysterectom y, laparoscopi c, with bilateral salpingecto my (SURG) 2022 023 [facility], [address], [place], [address], 11:57:57 Imaging US, pelvis 2022 023 [email or web address], [address], [place], [address], 21:04:16 US, transvagina l 2022 [email or web address], [address], [place], [address], 21:04:16 Medication Orders None recorded. Patient TargetsNo targets recorded. Patient InstructionsNo instructions recorded. Reason for Referral None Reported. Results Created Date Observation Date Name Description Value Unit Range Abnormal Flag Note LastModifiedBy Organization Detail LastModifiedTime 12/25/1912/24/2022 US, kj rashid No observ ation record ed. [email or web address] [place] [address], [place], [address], 12/24/2022 13:28:18 12/25/19 23 12/24/2022 US, trans vagin al No observ ation record ed. [email or web address] [place] [address], [place], [address], 12/24/2022 13:28:09 12/25/19 23 12/24/2022 US, pelvi s No observ ation record ed. [email or web address] [address], [place], [address], 01/01/2023 09:43:50 Result Notes None recorded. Procedures Surgical History Date Name Laterality Status Provider Name and Address Organization Details Recorded Time 03/10/20 23 TOTAL HYSTERECTOMY, LAPAROSCOPIC, WITH BILATERAL SALPINGECTOMY (SURG) completed Chanelaz Marcano [facility] 03/11/2023 10:15:34 01/08/20 19 excision of bunion completed [facility] 12/23/2022 10:24:29 05/05/20 07 section completed [facility] 12/23/2022 10:24:12 05/05/20 07 Tubal Ligation completed [facility] 12/23/2022 10:24:20 09/16/20 04 section completed [facility] 12/23/2022 10:24:05 11/05/19 02 section completed [facility] 12/23/2022 10:23:58 Imaging Results None recorded. Procedure Notes None recorded. Medical Equipment None Reported. Allergies Allergen ID Allergen Name Allergen Category Reaction Reaction Severity Criticality Documentation Date Start Date Code Code System Note Provider Name and Address Organization Details Recorded Time shellfish derived food,medi cation Not available Not available Not available 12/23/2022 [address] [facility] Roxanne Fonseca [facility] 3 10:20:37 poison nirmala extract environme nt Not available Not available Not available 12/23/2022 52252 6 RxNorm Roxanne Fonseca [facility] 3 10:20:44 Medications Name Sig Start Date Stop Date Status Note LastModified by Organization Details LastModified Time losartan 50 mg tablet Take 1 tablet every day by oral route. active Not Available Not Available No t Available cyclobenzap rine 10 mg tablet TAKE 1 TABLET BY MOUTH THREE TIMES DAILY NEEDED FOR MUSCLE SPASM active Not Available Not Available No t Available cyanocobala min (vit B-12) ER 1,000 mcg tablet,exte nded release TAKE 1 TABLET BY MOUTH TWICE DAILY WITH MEALS 12/23 completed Not Available Not Available Not Available trazodone 50 mg tablet TAKE 1 TABLET BY MOUTH NIGHTLY AT BEDTIME active Not Available Not Available No t Available ibuprofen 800 mg tablet TAKE 1 TABLET BY MOUTH THREE TIMES DAILY 12/23 completed Not Available Not Available Not Available fluconazole 150 mg tablet TAKE 1 TABLET BY MOUTH THREE TIMES A WEEK NEEDED FOR 7 DAYS 12/23 completed Not Available Not Available Not Available hydrocodone 5 mg-acetamin ophen 325 mg tablet TAKE 1 TABLET BY MOUTH EVERY 4 HOURS NEEDED FOR PAIN active Not Available Not Available No t Available losartan 25 mg tablet TAKE 1 TABLET BY MOUTH ONCE DAILY active Not Available Not Available No t Available omeprazole 20 mg capsule,del ayed release TAKE 1 CAPSULE BY MOUTH TWICE DAILY 30 MINUTES BEFORE MEAL(S) OR FOOD active Not Available Not Available No t Available methylpredn isolone 4 mg tablets in a dose pack TAKE BY MOUTH DIRECTED ON INSIDE OF PACKAGE 12/23 completed Not Available Not Available Not Available loratadine 10 mg tablet TAKE 1 TABLET BY MOUTH ONCE DAILY FOR 30 DAYS 12/23 completed Not Available Not Available Not Available cranberry 500 mg capsule Take by oral route. active Not Available Not Available No t Available amoxicillin 875 mg-potassiu m clavulanate 125 mg tablet TAKE 1 TABLET BY MOUTH TWICE DAILY 12/23 completed Not Available Not Available Not Available rosuvastati n 10 mg tablet TAKE 1 TABLET BY MOUTH NIGHTLY AT BEDTIME active Not Available Not Available No t Available Pennsaid 20 mg/gram/act uation (2 %) topical soln in metered-dos e pump apply two pumps (40 MG) TO THE affected knee(s) topically TWICE DAILY 12/23 completed Not Available Not Available Not Available Vitals Date Recorded Body height Body mass index (BMI) Body weight Systolic blood pressure Diastolic blood pressure Provider Name and Address Organization Details Last Updated DateTime 01/20/2023 167.64 cm 37.8 kg/m2 721292.6 1 g 151 mm[Hg] 82 mm[Hg] [facility] 3 15:12:20 Date Recorded Body height Body mass index (BMI) Body weight Systolic blood pressure Diastolic blood pressure Provider Name and Address Organization Details Last Updated DateTime 03/02/2023 167.64 cm 37.6 kg/m2 953371.0 2 g 143 mm[Hg] 93 mm[Hg] [facility] 3 10:24:42 Date Recorded Body height Body mass index (BMI) Body weight Systolic blood pressure Diastolic blood pressure Provider Name and Address Organization Details Last Updated DateTime 03/16/2023 167.64 cm 37 kg/m2 020881.6 5 g 131 mm[Hg] 82 mm[Hg] [facility] 3 10:24:54 Social History Question Answer Notes LastModified by RipCode Details LastModified Time Tobacco Smoking Status Never Smoker [facility] 12/23/2022 10:23:47 Are You Blind Or Do You Have Difficulty Seeing? No Information not available 12/23/2022 Are You Deaf Or Do You Have Serious Difficulty Hearing? No Information not available 12/23/2022 What Type Of Diet Are You Following? REGULAR Information not available 12/23/2022 Do You Have Difficulty Walking Or Climbing Stairs? No Information not available 12/23/2022 Sex: Unknown Functional Status Question Answer Note LastModified by RipCode Details LastModified Time What is your level of alcohol consumption? Occasional Information not available 12/23/2022 Are you able to walk? YESWOREST Information not available 12/23/2022 Are you able to care for yourself? Yes Information not available 12/23/2022 Do you have difficulty dressing or bathing? No Information not available 12/23/2022 What is your exercise level? Occasional Information not available 12/23/2022 Mental Status None recorded. Family History Relationship Description Onset Age of this Age Resolved Age Notes LastModified by Organization Details LastModified Time Sister Malignant tumor of cervix Not available 2022 10:23:25 Mother Malignant neoplasm of lung Not available 2022 10:23:34 Medical History Condition Response Allergies (Food, seasonal, environmental ) N Other Y Breast Cancer N Drug/Latex Allergies/Reactions N Blood Transfusion N Dermatologic Disorders N Lung Disease N Defects or Inherited Disease N Breast Problem N Gestational Diabetes N Hematologic disorders N Anesthesia Complications N History of STI N Deep Vein Thrombosis N Polycystic ovary syndrome N Anxiety Disorder N Autoimmune disease N Arthritis N Infertility N Polyps N Acid Reflux (GERD) N History of abnormal pap N Cancer N Stroke N Varicosities N Neurologic/Epilepsy N Endometriosis N High Cholesterol Y Headaches N Fibromyalgia N Kidney Disease N Heart Problems N Kidney or Bladder Problems N Thyroid Problems N GI Problems N Eating Disorder N Anemia N Art (IVF or FET) N Psychiatric Illness N Ovarian Cancer N Diabetes N Pulmonary (TB, Asthma) N Hepatitis/Liver Disease N No Past Medical History N Eczema N Urinary Tract Infection N Abuse/Domestic Violence N Asthma N Trauma/Violence N Depression/ depression N Heart Disease N Pre-Eclampsia N Hypertension Y Osteoporosis N Thrombophilias N Gynecological History Statement/Question Response Abnormal Pap N Flow Heavy Date of LMP 11/29/2022 STIs/STDs N HPV Vaccine Y Current Control Method Hysterectom y Sexually Active? Y Menses Monthly Y Age of first menstrual cycle 15 Date of Last Pap Smear Sexual Problems? N LMP Definite Obstetrics History GPAL:G 4 P 3 0 1 3 Type Value Full Term 3 Spontaneous 1 Living 3 Total 4 Past Encounters Encounter ID Performer Location Encounter Start Date Encounter Closed Date Diagnosis/Indication Diagnosis SNOMED-CT Code Diagnosis ICD10 Code Diagnosis Note [id number] [place] [address] [address] 12/23/2022 09:53:38 12/23/2022 11:20:26 Menorrhagia 229960587 N92.0 Recommend the following: Updated USIUD Mirena vs endometria l ablation. Opts for mirena if all is wnl.Reach out USIf WNL will place IUD ASAPThen, at string check will also do WWE with pap/hpv.Ge t Labs from PCP Time spent in visit is a total of 30 mins with at least 50% of visit consisting of counseling and review of plan of care. [id number] Marcus Jewell MD [place] [address] [address] 12/24/2022 09:51:51 12/24/2022 13:10:50 Menorrhagia 253379595 N92.0 [id number] Marcus Jewell MD [place] [address] [address] 01/20/2023 14:34:42 01/20/2023 16:12:31 Menorrhagia 611742961 N92.0 Dysmenorrhea 815708133 N 94.6 Uterine leiomyoma 751704 05 D25.9 this patient is a 42-year-ol d female presents for menorrhagi a and severe dysmenorrh ea. She has debilitati ng pain at the time of her menses. She has had to leave work. She has bled around pads and tampons to get blood on her clothing, bedding, car. Her bleeding is extremely heavy and this affected her quality of life and activities of daily living and profound ways. She has a very large fibroid uterus. We discussed treatment options. I recommende d that she have hysterecto my. We talked about hysterecto my detail. We agreed to move forward with the surgery. We spent over 40 minutes for face-to-fa ce. More than 50% was counseling . We made a decision to perform surgery. We will perform total laparoscop ic hysterecto my or robotic assisted hysterecto my with bilateral salpingect raoul. [id number] Marcus Jewell MD [place] [address] [address] 03/02/2023 10:01:03 03/02/2023 11:01:26 Menorrhagia 510033701 N92.0 Dysmenorrhea 324979137 N 94.6 this patient is a 42-year-ol d female presents for preoperati ve care. She has severe dysmenorrh ea and severe menorrhagi a. We agreed to perform total laparoscop ic hysterecto my bilateral salpingect raoul. She understand s the risks, benefits, and alternativ es. She has completed the informed consent process and is ready to proceed. [id number] Marcus Jewell MD [place] [address] [address] 03/16/2023 09:57:19 03/16/2023 09:59:25 [id number] Marcus Jewell MD [place] [address] [address] 03/16/2023 09:53:11 03/16/2023 11:04:22 Postoperative care [id number] Z48.89 patient is 42-year-ol d female who presents for postoperat dalia care. She had had a laparoscop ic hysterecto my with bilateral salpingect raoul. She is recovering normally. Her incisions are clean dry and intact. She has no complaints today. Some persistent postoperat dalia pain that is managed well. Health Concerns Section Related Observation LastModified by Organization Detai ls LastModified Time None Recorded Concern Status LastModified by Organization Details LastModified Time None Recorded Advance Directives Directive None Recorded Payers Encounter Date Sequence Insurance Name Policy Number Policy Lam Covered Member ID Lam Member ID Guarantor Name 12/24/2022 1 [facility] [id number] Carmen Juan Miguel [id number] Carmen Juan Miguel 01/20/2023 1 [facility] [id number] Carmen Juan Miguel [id number] [facility] Juan Miguel 03/02/2023 1 [facility] [id number] Carmen Juan Miguel [id number] Carmen Juan Miguel 03/10/2023 1 [facility] [id number] [facility] Juan Miguel [id number] [facility] 03/16/2023 1 [facility] [id number] Carmen Bullard [id number] Carmen Bullard Notes Date Note Type Note Provider Name and Address Organization Details Recorded Time 01/20/2023 text/html this patient is a 42-year-old female presents for menorrhagia and severe dysmenorrhea. She has debilitating pain at the time of her menses. She has had to leave work. She has bled around pads and tampons to get blood on her clothing, bedding, car. Her bleeding is extremely heavy and this affected her quality of life and activities of daily living and profound ways. She has a very large fibroid uterus. We discussed treatment options. I recommended that she have hysterectomy. We talked about hysterectomy detail. We agreed to move forward with the surgery. We spent over 40 minutes for rwle-gw-pzla. More than 50% was counseling. We made a decision to perform surgery. We will perform total laparoscopic hysterectomy or robotic assisted hysterectomy with bilateral salpingectomy. Marcus Jewell MD [address], [place], [address], [facility] 01/20/2023 16:02:28 03/02/2023 text/html This patient is a 42-year-old female with severe dysmenorrhea and menorrhagia. We agreed to perform total laparoscopic hysterectomy and bilateral salpingectomy. The patient understands the procedure. The procedure was described to the patient in great detail. the patient also understands the risks. The risks were also explained in detail. She understands that injuries May occur during surgery. She understands these injuries can result in hospitalization, more surgery, and severe illness. She understands there is risk of hemorrhage and infection. Marcus Jewell MD [address], [place], [address], [facility] 03/02/2023 10:58:02 03/16/2023 text/html patient is 42-year-old female who presents for postoperative care. She had had a laparoscopic hysterectomy with bilateral salpingectomy. She is recovering normally. Her incisions are clean dry and intact. She has no complaints today. Some persistent postoperative pain that is managed well. Marcus Jewell MD [address], [place], [address], [facility] 03/16/2023 11:00:53 OBGyn Episode Ob Episode Information Episode Created Date Number of Fetuses Patient Bloodtype Patient rh Status Prepregnancy Weight lbs Domestic Partner Domestic Partner Phone Father Name Chemistry Faculty Member Status 12/23/19 1 CLOSED Fetus Data First Name Last Name Admitted to NICU Weight (g) Sex Living Outcome Pediatric Complications Fetus ID Race Codes Race Delivery Type Full Term [id number] Repeat Gerardo Calculation Initial Gerardo Date Initial Exam Date Initial Exam Provider Initial Ultrasound Date Last Menstrual Period Date Ultra Sound Weeks Gestation 0 Eighteen To Twenty Week Gerardo Update Ultra Sound Date Fundal Height At Umbil Quickening Date Ultra Sound Latest Weeks Gestation Final Gerardo Confirmed By Final Gerardo Confirmed Date Final Gerardo Date Ultra Sound Latest Days Gestation 0 0 Menstrual History Last Menstrual Date Menses Monthly On Bcp Conception Prior Menses Frequency Hcg Plus Date Menarche Onset Age Delivery Information Delivery Date Delivery Type Labor Anesthesia Weeks Gestation Incision Type Labor Labor Length Hrs Delivered By Post Complications Tubal Sterilization Discharge Date Comments 7 Discharge Information Feeding Method Contraceptive Method Maternal HG B and HCT Levels Ob Episode Information Episode Created Date Number of Fetuses Patient Bloodtype Patient rh Status Prepregnancy Weight lbs Domestic Partner Domestic Partner Phone Father Name Chemistry Faculty Member Status 12/23/19 1 CLOSED Fetus Data First Name Last Name Admitted to NICU Weight (g) Sex Living Outcome Pediatric Complications Fetus ID Race Codes Race Delivery Type Full Term [id number] Primary Gerardo Calculation Initial Gerardo Date Initial Exam Date Initial Exam Provider Initial Ultrasound Date Last Menstrual Period Date Ultra Sound Weeks Gestation 0 Eighteen To Twenty Week Gerardo Update Ultra Sound Date Fundal Height At Umbil Quickening Date Ultra Sound Latest Weeks Gestation Final Gerardo Confirmed By Final Gerardo Confirmed Date Final Gerardo Date Ultra Sound Latest Days Gestation 0 0 Menstrual History Last Menstrual Date Menses Monthly On Bcp Conception Prior Menses Frequency Hcg Plus Date Menarche Onset Age Delivery Information Delivery Date Delivery Type Labor Anesthesia Weeks Gestation Incision Type Labor Labor Length Hrs Delivered By Post Complications Tubal Sterilization Discharge Date Comments 2 Discharge Information Feeding Method Contraceptive Method Maternal HG B and HCT Levels Ob Episode Information Episode Created Date Number of Fetuses Patient Bloodtype Patient rh Status Prepregnancy Weight lbs Domestic Partner Domestic Partner Phone Father Name Chemistry Faculty Member Status 12/23/19 1 CLOSED Fetus Data First Name Last Name Admitted to NICU Weight (g) Sex Living Outcome Pediatric Complications Fetus ID Race Codes Race Delivery Type Full Term [id number] Repeat Gerardo Calculation Initial Gerardo Date Initial Exam Date Initial Exam Provider Initial Ultrasound Date Last Menstrual Period Date Ultra Sound Weeks Gestation 0 Eighteen To Twenty Week Gerardo Update Ultra Sound Date Fundal Height At Umbil Quickening Date Ultra Sound Latest Weeks Gestation Final Gerardo Confirmed By Final Gerardo Confirmed Date Final Gerardo Date Ultra Sound Latest Days Gestation 0 0 Menstrual History Last Menstrual Date Menses Monthly On Bcp Conception Prior Menses Frequency Hcg Plus Date Menarche Onset Age Delivery Information Delivery Date Delivery Type Labor Anesthesia Weeks Gestation Incision Type Labor Labor Length Hrs Delivered By Post Complications Tubal Sterilization Discharge Date Comments 4 Discharge Information Feeding Method Contraceptive Method Maternal HG B and HCT Levels
--- OUTSIDE RECORDS SUMMARY | 2025-04-02 09:16 | XMS_ITS | Data Portability ---
[facility] Address [address] [place] [address] Care Team Providers Care [employer] Intern Name Role Phone WINNIE LO Primary Care Provider [phone] Assessment No assessment recorded. Plan of Treatment Reminders Order Date Submit Date Provider Last Modified By Organization Details Last Modified Time Details Appointments None recorded . Lab surgical patholog y study 2024 025 [facility], [address], [place], [address], 5 12:20:59 CMP, serum or plasma 2024 025 [place] [facility], [address], [place], [address], 5 09:51:56 lipid panel, serum or plasma 2024 025 [place] [facility], [address], [place], [address], 5 09:51:54 CBC w/ auto diff 2024 025 [place] [facility], [address], [place], [address], 5 09:51:58 TSH + free T4, serum 2024 025 [facility], [address], [place], [address], 5 09:51:53 HbA1c (hemoglo bin A1c), blood 2024 025 [facility], [address], [address], [place], [address], 5 09:51:57 vaginal pathogen s panel, GRICELDA+prob e, vaginal fluid 2021 022 [facility], [address], [place], [address], 2 05:09:23 cytology report, thin prep, smear or scraping , cervical or vaginal 2021 [facility], [address], [place], [address], 2 09:14:20 Referral general surgeon referral 2021 [facility] Renetta Jensen MD (Dermatology) , [address], [address], [place], [address], 2 11:45:10 Procedures None recorded . Surgeries None recorded . Imaging MAMMO, screenin g, bilatera l [address] [facility], [address], [address], [place], [address], 5 08:02:36 US, pelvis, transabd ominal + transvag inal - please assess for adenomos is. 42 y/o female with abnormal uterine bleeding and dysmenor allen 2021 022 [facility] (Imaging), [address], [place], [address], 2 09:47:47 Medication Orders losartan 100 mg tablet 2024 025 [facility] [address], [address], [place], [address], 16:40:47 trazodon e 50 mg tablet 2024 025 [facility] 2425, [address], [place], [address], 11:41:34 famotidi ne 40 mg tablet [address] [facility] 2425, [address], [place], [address], 11:59:11 sumatrip ivey 50 mg tablet [address] [facility] 2425, [address] [facility], [place], [address], 11:58:22 losartan 50 mg tablet [address] [facility] 2425, [address] [facility], [place], [address], 11:59:10 cycloben zaprine 10 mg tablet [address] [facility] 2425, [address] [facility], [place], [address], 11:31:35 Pennsaid 20 mg/gram/ actuatio n (2 %) topical soln in metered- dose pump 2021 [facility], [address] [place] [address], [id number], 11:41:06 escitalo pram 10 mg tablet 2021 022 [facility] [address]25, [address] , [place], [address], 11:33:57 loratadi ne 10 mg tablet 2021 022 [facility] [address], [address], [place], [address], 5 11:34:42 ibuprofe n 800 mg tablet 2021 022 [facility] [address]25, [address], [place], [address], 11:34:38 amoxicil vicky 875 mg-potas sium clavulan ate 125 mg tablet 2021 022 [facility] [address]25, [address], [place], [address], 11:18:57 fluconaz ole 150 mg tablet 2021 [facility]22 [facility], [address], [place], [address], 11:34:34 tramadol 50 mg tablet 2021 022 [facility] [address]25, [address], [place], [address], 5 11:34:12 Patient TargetsNo targets recorded. Patient Instructions Encounter Date Encounter Id Patient Instructions Last Modified By Organization Details Last Modified Time 01/10/2022 [id number] Advised neospori n evry hour into nostrils and hold .... [id number] Not available 01/18/2022 12:43:57 02/16/2025 [id number] A healthy lifestyle: care instructions [email or web address] Not available 02/16/2025 11:42:24 Reason for Referral General Surgeon Referral for Lipoma of skin Referring Physician: Magdalena Pimentel, Family Medicine, Encounter Date: 12/02/2021 Results Created Date Observation Date Name Description Value Unit Range Abnormal Flag Note LastModifiedBy Organization Detail LastModifiedTime 12/02/19 22 12/03/2021 NUSWA B VAGIN ITIS PLUS (VG+) atopobium vaginae High - 2 score abnormal Not Available [facility] ([facility]) [address] [facility], [place], [address], 12/04/2021 05:09:22 12/02/19 22 12/03/2021 NUSWA B VAGIN ITIS PLUS (VG+) bvab 2 High - 2 score abnormal Not Available [facility] ([facility]) [address] [facility], [place], [address], 12/04/2021 05:09:22 12/02/19 22 12/03/2021 NUA B VAGIN ITIS PLUS (VG+) megasphaera 1 High - 2 score abnormal Calcu late total score by aileen g the 3 indiv idual bacte rial vagin osis (BV) marke r score s toget her. Total score is inter prete d as follo ws: Total score 0-1: Indic ates the absen ce of BV. Total score 2: Indet ermin ate for BV. Addit ional clini tosha data shoul d be evalu ated to estab amanuel a diagn osis. Total score 3-6: Indic ates the prese nce of BV. This test was devel oped and its perfo rmanc e shirin cteri stics deter mined by [facility]. It has not been clear ed or appro kalli by the Food and Drug Admin istra tion. Not Available [facility] ([facility]) [address] [facility], [place], [address], 12/04/2021 05:09:22 12/02/19 22 12/03/2021 NUA B VAGIN ITIS PLUS (VG+) hugh albicans, GRICELDA Negati ve negati ve Not Available [facility] ([facility]) [address] [facility], [place], [address], 12/04/2021 05:09:22 12/02/19 22 12/03/2021 NUA B VAGIN ITIS PLUS (VG+) hugh glabrata, GRICELDA Negati ve negati ve Not Available [facility] ([facility]) [address] [facility], [place], [address], 12/04/2021 05:09:22 12/02/19 22 12/04/2021 NUA B VAGIN ITIS PLUS (VG+) trich vag by GRICELDA Negati ve negati ve Not Available [facility] ([facility]) [address] [facility], [place], [address], 12/04/2021 05:09:22 12/02/19 22 12/04/2021 NUA B VAGIN ITIS PLUS (VG+) chlamydia trachomatis, GRICELDA Negati ve negati ve Not Available [facility] ([facility]) [address] [facility], [place], [address], 12/04/2021 05:09:22 12/02/19 22 12/04/2021 NUA B VAGIN ITIS PLUS (VG+) neisseria gonorrhoeae, GRICELDA Negati ve negati ve Not Available [facility] ([facility]) [address] [facility], [place], [address], 12/04/2021 05:09:22 12/02/19 22 12/04/2021 IGP, APTIM A HPV, RFX 16/18 ,45 diagnosis: Commen t NEGAT CARINA FOR INTRA EPITH ELIAL LESIO N OR MALIG SANTI . Not Available [facility] ([facility]) [address] [facility], [place], [address], 12/04/2021 09:14:20 12/02/19 22 12/04/2021 IGP, APTIM A HPV, RFX 16/18 ,45 specimen adequacy: Commen t Satis facto ry for evalu ation . No endoc ervic al compo nent is ident ified . Not Available [facility] ([facility]) [address] [facility], [place], [address], 12/04/2021 09:14:20 12/02/19 22 12/04/2021 IGP, APTIM A HPV, RFX 16/18 ,45 clinician provided ICD10: Alen medina Z12.4 Not Available [facility] ([facility]) [address] [place], [address], 12/04/2021 09:14:20 12/02/19 22 12/04/2021 IGP, APTIM A HPV, RFX 16/18 ,45 performed by: Alen Melo th, Cytoadam medina (ASCP ) Not Available [facility] ([facility]) [address] [place], [address], 12/04/2021 09:14:20 12/02/19 22 12/04/2021 IGP, APTIM A HPV, RFX 16/18 ,45 . . Not Available [facility] ([facility]) [address] [place], [address], 12/04/2021 09:14:20 12/02/19 22 12/04/2021 IGP, APTIM A HPV, RFX 16/18 ,45 note: Alen medina The Pap smear is a scree cassie test desig lynne to aid in the detec tion of pamela ligna nt and malig nant condi tions of the uteri ne cervi x. It is not a diagn ostic proce dure and shoul d not be used as the sole means of detec ting cervi tosha cance r. Both false -posi tive and false -nega tive repor ts do occur . Not Available [facility] ([facility]) [address] [place], [address], 12/04/2021 09:14:20 12/02/19 22 12/04/2021 IGP, APTIM A HPV, RFX 16/18 ,45 test methodology: Alen medina This liqui d based ThinP rep(R ) pap test was scree lynne with the use of an image guide rene systmalathi m. Not Available [facility] ([facility]) [address] [place], [address], 12/04/2021 09:14:20 12/02/1912/04/2021 IGP, APTIM A HPV, RFX 16/18 ,45 HPV aptima Negati ve negati ve This nucle ic acid ampli ficat ion test detec ts fourt een high- risk HPV types (16,1 8,31, 33,35 ,39,4 5,51, 52,56 ,58,5 9,66, 68) witho ut diffe renti ation . Not Available [facility] ([facility]) [address] [facility], [place], [address], 12/04/2021 09:14:20 11/14/19 23 11/14/2022 Hepat itis C virus Ab [Pres ence] in Serum hepatitis C virus Ab [presence] in serum NON-RE ACTIVE text: non-re active HEPAT ITIS C AB NON-R EACTI VE NON-R EACTI VE 11/14 6:49 PM [employer] [facility] Not Available Not Available 02/16/2025 03:45:12 02/17/2002/17/2025 TSH+F REE T4 TSH 0.450 uIU/m L 0.450- 4.500 Not Available [facility] ([facility]) [address] [place], [address], 02/17/2025 09:51:53 02/17/2002/17/2025 TSH+F REE T4 T4,free(dire ct) 0.98 NG/dL 0.82-1 .77 Not Available [facility] ([facility]) [address] [place], [address], 02/17/2025 09:51:53 02/17/2002/17/2025 LIPID PANEL WITH LDL/H DL RATIO cholesterol, total 212 mg/dL 100-19 9 above high normal Not Available [facility] ([facility]) [address] [place], [address], 02/17/2025 09:51:54 02/17/20 25 02/17/2025 LIPID PANEL WITH LDL/H DL RATIO triglyceride s 266 mg/dL 0-149 above high normal Not Available [facility] ([facility]) [address] [place], [address], 02/17/2025 09:51:54 02/17/2002/17/2025 LIPID PANEL WITH LDL/H DL RATIO HDL cholesterol 42 mg/dL >39 Not Available [facility] ([facility]) [address] [place], [address], 02/17/2025 09:51:54 02/17/2002/17/2025 LIPID PANEL WITH LDL/H DL RATIO VLDL cholesterol tosha 47 mg/dL 5-40 above high normal Not Available [facility] ([facility]) [address] [place], [address], 02/17/2025 09:51:54 02/17/2002/17/2025 LIPID PANEL WITH LDL/H DL RATIO LDL chol calc ([facility]) 123 mg/dL 0-99 above high normal Not Available [facility] ([facility]) [address] [place], [address], 02/17/2025 09:51:54 02/17/2002/17/2025 LIPID PANEL WITH LDL/H DL RATIO LDL/HDL ratio 2.9 ratio 0.0-3. 2 LDL/H DL Ratio Men Women 1/2 Avg.R isk 1.0 1.5 Avg.R isk 3.6 3.2 2X Avg.R isk 6.2 5.0 3X Avg.R isk 8.0 6.1 Not Available [facility] ([facility]) [address] [place], [address], 02/17/2025 09:51:54 02/17/2002/17/2025 COMP. METAB OLIC PANEL (14) glucose 176 mg/dL 70-99 above high normal Not Available [facility] ([facility]) [address] [place], [address], 02/17/2025 09:51:56 02/17/20 25 02/17/2025 COMP. METAB OLIC PANEL (14) BUN 11 mg/dL 6-24 Not Available [facility] ([facility]) [address] [place], [address], 02/17/2025 09:51:56 02/17/20 25 02/17/2025 COMP. METAB OLIC PANEL (14) creatinine 0.77 mg/dL 0.57-1 .00 Not Available [facility] ([facility]) [address] [place], [address], 02/17/2025 09:51:56 02/17/20 25 02/17/2025 COMP. METAB OLIC PANEL (14) eGFR 99 mL/mi n/1.7 3 >59 Not Available [facility] ([facility]) [address] [place], [address], 02/17/2025 09:51:56 02/17/20 25 02/17/2025 COMP. METAB OLIC PANEL (14) BUN/creatini ne ratio 14 9-23 Not Available [facility] ([facility]) [address] [place], [address], 02/17/2025 09:51:56 02/17/20 25 02/17/2025 COMP. METAB OLIC PANEL (14) sodium 139 mmol/ L 134-14 4 Not Available [facility] ([facility]) [address] [place], [address], 02/17/2025 09:51:56 02/17/20 25 02/17/2025 COMP. METAB OLIC PANEL (14) potassium 4.3 mmol/ L 3.5-5. 2 Not Available [facility] ([facility]) [address] [place], [address], 02/17/2025 09:51:56 02/17/2002/17/2025 COMP. METAB OLIC PANEL (14) chloride 101 mmol/ L 96-106 Not Available [facility] ([facility]) [address] [place], [address], 02/17/2025 09:51:56 02/17/2002/17/2025 COMP. METAB OLIC PANEL (14) carbon dioxide, total 19 mmol/ L 20-29 below low normal Not Available [facility] ([facility]) [address] [place], [address], 02/17/2025 09:51:56 02/17/2002/17/2025 COMP. METAB OLIC PANEL (14) calcium 9.8 mg/dL 8.7-10 .2 Not Available [facility] ([facility]) [address] [place], [address], 02/17/2025 09:51:56 02/17/2002/17/2025 COMP. METAB OLIC PANEL (14) protein, total 6.6 g/dL 6.0-8. 5 Not Available [facility] ([facility]) [address] [place], [address], 02/17/2025 09:51:56 02/17/2002/17/2025 COMP. METAB OLIC PANEL (14) albumin 4.3 g/dL 3.9-4. 9 Not Available [facility] ([facility]) [address] [facility] [place], [address], 02/17/2025 09:51:56 02/17/2002/17/2025 COMP. METAB OLIC PANEL (14) globulin, total 2.3 g/dL 1.5-4. 5 Not Available [facility] ([facility]) [address] [facility] [place], [address], 02/17/2025 09:51:56 02/17/20 25 02/17/2025 COMP. METAB OLIC PANEL (14) bilirubin, total 1.2 mg/dL 0.0-1. 2 Not Available [facility] ([facility]) [address] [place], [address], 02/17/2025 09:51:56 02/17/2002/17/2025 COMP. METAB OLIC PANEL (14) alkaline phosphatase 94 IU/L 44-121 Not Available [facility] ([facility]) [address] [place], [address], 02/17/2025 09:51:56 02/17/2002/17/2025 COMP. METAB OLIC PANEL (14) AST (SGOT) 42 IU/L 0-40 above high normal Not Available [facility] ([facility]) [address] [place], [address], 02/17/2025 09:51:56 02/17/2002/17/2025 COMP. METAB OLIC PANEL (14) ALT (SGPT) 50 IU/L 0-32 above high normal Not Available [facility] ([facility]) [address] [place], [address], 02/17/2025 09:51:56 02/17/2002/17/2025 HEMOG LOBIN A1C hemoglobin A1C 7.8 % 4.8-5. 6 above high normal Predi abete s: 5.7 - 6.4 Diabe fiordaliza: >6.4 Glyce lolly contr ol for adult s with diabe fiordaliza: <7.0 Not Available [facility] ([facility]) [address] [place], [address], 02/17/2025 09:51:57 02/17/2002/17/2025 CBC WITH DIFFE RENTI AL/PL ATELE T WBC 9.8 x10e3 /uL 3.4-10 .8 Not Available [facility] ([facility]) [address] [facility], [place], [address], 02/17/2025 09:51:58 02/17/2002/17/2025 CBC WITH DIFFE RENTI AL/PL ATELE T RBC 5.05 x10e6 /uL 3.77-5 .28 Not Available [facility] ([facility]) [address] [facility], [place], [address], 02/17/2025 09:51:58 02/17/2002/17/2025 CBC WITH DIFFE RENTI AL/PL ATELE T hemoglobin 15.2 g/dL 11.1-1 5.9 Not Available [facility] ([facility]) [address] [facility], [place], [address], 02/17/2025 09:51:58 02/17/2002/17/2025 CBC WITH DIFFE RENTI AL/PL ATELE T hematocrit 44.4 % 34.0-4 6.6 Not Available [facility] ([facility]) [address] [place], [address], 02/17/2025 09:51:58 02/17/2002/17/2025 CBC WITH DIFFE RENTI AL/PL ATELE T MCV 88 fL 79-97 Not Available [facility] ([facility]) [address] [place], [address], 02/17/2025 09:51:58 02/17/2002/17/2025 CBC WITH DIFFE RENTI AL/PL ATELE T MCH 30.1 pg 26.6-3 3.0 Not Available [facility] ([facility]) [address] [place], [address], 02/17/2025 09:51:58 02/17/20 25 02/17/2025 CBC WITH DIFFE RENTI AL/PL ATELE T MCHC 34.2 g/dL 31.5-3 5.7 Not Available [facility] ([facility]) [address] [facility], [place], [address], 02/17/2025 09:51:58 02/17/2002/17/2025 CBC WITH DIFFE RENTI AL/PL ATELE T RDW 13.5 % 11.7-1 5.4 Not Available [facility] ([facility]) [address] [facility], [place], [address], 02/17/2025 09:51:58 02/17/2002/17/2025 CBC WITH DIFFE RENTI AL/PL ATELE T platelets 263 x10e3 /uL 150-45 0 Not Available [facility] ([facility]) [address] [facility], [place], [address], 02/17/2025 09:51:58 02/17/2002/17/2025 CBC WITH DIFFE RENTI AL/PL ATELE T neutrophils 59 % notest ab. Not Available [facility] ([facility]) [address] [facility], [place], [address], 02/17/2025 09:51:58 02/17/2002/17/2025 CBC WITH DIFFE RENTI AL/PL ATELE T lymphs 29 % notest ab. Not Available [facility] ([facility]) [address] [facility], [place], [address], 02/17/2025 09:51:58 02/17/2002/17/2025 CBC WITH DIFFE RENTI AL/PL ATELE T monocytes 7 % notest ab. Not Available [facility] ([facility]) [address] [facility], [place], [address], 02/17/2025 09:51:58 02/17/2002/17/2025 CBC WITH DIFFE RENTI AL/PL ATELE T eos 3 % notest ab. Not Available [facility] ([facility]) [address] [facility], [place], [address], 02/17/2025 09:51:58 02/17/2002/17/2025 CBC WITH DIFFE RENTI AL/PL ATELE T basos 1 % notest ab. Not Available [facility] ([facility]) [address] [facility], [place], [address], 02/17/2025 09:51:58 02/17/2002/17/2025 CBC WITH DIFFE RENTI AL/PL ATELE T neutrophils (absolute) 5.9 x10e3 /uL 1.4-7. 0 Not Available [facility] ([facility]) [address] [place], [address], 02/17/2025 09:51:58 02/17/2002/17/2025 CBC WITH DIFFE RENTI AL/PL ATELE T lymphs (absolute) 2.8 x10e3 /uL 0.7-3. 1 Not Available [facility] ([facility]) [address] [place], [address], 02/17/2025 09:51:58 02/17/2002/17/2025 CBC WITH DIFFE RENTI AL/PL ATELE T monocytes(ab solute) 0.7 x10e3 /uL 0.1-0. 9 Not Available [facility] ([facility]) [address] [place], [address], 02/17/2025 09:51:58 02/17/2002/17/2025 CBC WITH DIFFE RENTI AL/PL ATELE T eos (absolute) 0.3 x10e3 /uL 0.0-0. 4 Not Available [facility] ([facility]) [address] [place], [address], 02/17/2025 09:51:58 02/17/20 25 02/17/2025 CBC WITH DIFFE RENTI AL/PL ATELE T baso (absolute) 0.1 x10e3 /uL 0.0-0. 2 Not Available [facility] ([facility]) [address] [facility], [place], [address], 02/17/2025 09:51:58 02/17/2002/17/2025 CBC WITH DIFFE RENTI AL/PL ATELE T immature granulocytes 1 % notest ab. Not Available [facility] ([facility]) [address] [facility], [place], [address], 02/17/2025 09:51:58 02/17/20 25 02/17/2025 CBC WITH DIFFE RENTI AL/PL ATELE T immature grans (abs) 0.1 x10e3 /uL 0.0-0. 1 Not Available [facility] ([facility]) [address] [facility], [place], [address], 02/17/2025 09:51:58 03/14/2003/21/2025 PATHO LOGY REPOR T . COMMEN T Mater ial submi tted: . neck - POSTE RIOR NECK SKIN TAG. Modif iers: poste rior Not Available [facility] ([facility]) [address] [facility], [place], [address], 03/21/2025 12:20:59 03/14/2003/21/2025 PATHO LOGY REPOR T . COMMEN T Clini corrina provi ded ICD-1 0: L91.8 Not Available [facility] ([facility]) [address] [facility], [place], [address], 03/21/2025 12:20:59 03/14/20 25 03/21/2025 PATHO LOGY REPOR T . COMMEN T Diagn osis: IRRIT ATED NEURO FIBRO MA. TMZ 03/21 0809 Local Not Available [facility] ([facility]) [address] [facility], [place], [address], 03/21/2025 12:20:59 03/14/2003/21/2025 PATHO LOGY REPOR T . COMMEN T Elect laci womack chelita d: . Caroline MD, [place] topat holog ist Not Available [facility] ([facility]) [address] [facility], [place], [address], 03/21/2025 12:20:59 03/14/2003/21/2025 PATHO LOGY REPOR T . COMMEN T Gross descr iptio n: . 1 Conta iner, forma vicky-f illed , label ed with patie nt ident ifica tion. POSTE RIOR NECK SKIN TAG: RECEI KALLI IS 1 FRAGM ENT(S ) OF WRINK LED POLYP OID IVEY SKIN TISSU E MEASU RING 0.4 X 0.2 X 0.2 CM. THE SURGI TOSHA DWAIN N IS INKED GREEN . THE SPECI MEN IS SUBMI TTED INTAC T AND SUBMI TTED IN CASSE TTE(S ) A1. RJG/R JG 03/16 1429 Local Not Available [facility] ([facility]) [address] [facility], [place], [address], 03/21/2025 12:20:59 03/14/2003/21/2025 PATHO LOGY REPOR T . COMMEN T Patho logis t provi ded ICD-1 0: D21.0 Not Available [facility] ([facility]) [address] [facility], [place], [address], 03/21/2025 12:20:59 03/14/20 25 03/21/2025 PATHO LEAH [place] CPT . 77073 1 Not Available [facility] ([facility]) [address] [facility], [place], [address], 03/21/2025 12:20:59 Result Notes None recorded. Problems Name Problem SNOMED Code Status Onset Date Resolution Date Notes Provider Name and Address Organization Details Recorded Time Muscle spasm of cervical muscle of neck 04412279810 4 Active 2017 Not Available [facility] 2 02:57:16 Acute pharyngit is 375494068 Active 2017 Not Available [facility] 2 02:57:15 Snoring 73152837 Active 2017 Not Available [facility] 2 02:57:16 Acquired left hallux valgus 25256243022 4103 Active 2017 Not Available [facility] 2 02:57:16 Requires a hepatitis A vaccinati on 135437995 Active 2017 Not Available [facility] 2 02:57:16 Upper respirato ry infection 82989977 Active 2019 Not Available [facility] 2 02:57:15 Exposure to SARS-CoV- 2 Active 2019 Not Available [facility] 2 02:57:16 Pain in right foot 74584994614 9107 Active 2020 Not Available [facility] 2 02:57:16 Hyperlipi demia 01368158 Active 2020 Not Available [facility] 2 02:57:16 At increased risk of nutrition al deficit 115246306 Active 2020 Not Available [facility] 2 02:57:16 Obese 306309364 Active 2020 Not Available [facility] 2 02:57:16 Anemia 476680940 Active 2020 Not Available [facility] 2 02:57:16 Serum vitamin B12 borderlin e low 182405186 Active 2020 Not Available [facility] 2 02:57:16 Vitamin D deficienc y 18784603 Active 2020 Not Available [facility] 2 02:57:16 Iron deficienc y anemia 61274130 Active 2020 Not Available [facility] 2 02:57:16 Essential hypertens ion 22551115 Active 2020 JOSÉ ANTONIO IGNACIO Attn: Accounting ,[address] [place], [place], [address] [place] [address] , [place] - [facility] 5 11:37:44 Acute otitis media 6462633 Active 2021 Not Available [facility] 2 02:57:16 Allergic rhinitis 09980457 Active 2021 Not Available [facility] 2 02:57:16 Strain of trapezius muscle 069965236 Active 2021 Not Available [facility] 2 02:57:16 Anxiety 37781344 Active 2021 Not Available [facility] 2 02:57:16 Mixed anxiety and depressiv e disorder 903414085 Active 2024 JOSÉ ANTONIO IGNACIO Attn: Accounting ,[address] [place], [place], [address] [place] [address] , [place] - [facility] 5 11:37:46 Mixed hyperlipi demia 630921482 Active 2024 JOSÉ ANTONIO IGNACIO Attn: Accounting ,[address] [place], [place], [address] [place] [address] , [place] [facility] 5 12:49:51 Migraine 24645031 Active Not Available [facility] 2 02:57:16 Obesity 510695372 Active Not Available [facility] 2 02:57:16 Gastroeso phageal reflux disease 768287622 Active Not Available [facility] 2 02:57:16 Cough 07422049 Active Not Available [facility] 2 02:57:16 Non-cycli tosha mastalgia 050507572 Active Not Available [facility] 2 02:57:15 Strain of knee 54567578868 3 Active Not Available [facility] 2 02:57:16 Fatigue 15123376 Active Not Available [facility] 2 02:57:16 Insomnia 384400979 Active Not Available [facility] 2 02:57:16 Obese [id number] Completed 04/26/2018 Efrain Lucas PA-C Attn: Accounting ,[address] [facility], [place], [address] , [place] 1 12:26:12 Depressiv e disorder 80253225 Active 2015 Not Available [facility] 2 02:57:16 Acute sinusitis 22353076 Active 2016 Not Available [facility] 2 02:57:16 Normal grief reaction 193408459 Active 2016 Not Available [facility] 2 02:57:15 Notes:Some problems listed i n Document: #[id number] could not be added to this patient's chart. Please review this document and add these problems to the patient's chart manually as needed. Problem Notes None recorded. Procedures Surgical History Date Name Laterality Status Provider Name and Address Organization Details Recorded Time 03/14/20 25 Skin Tag Removal completed JOSÉ ANTONIO IGNACIO Attn: Accounting,[address] [facility], [place], [address], [place] 03/15/2025 13:01:28 11/08/19 21 procedure completed Carmen [place]landon [place] [facility] 04/24/2021 12:12:09 04/29/20 18 Date of Last Pap Smear completed Christine Hartman [place] [facility] 05/23/2019 12:08:19 05/05/20 07 Tubal Ligation completed CHANEL Matthew - [facility] 08/29/2015 16:13:28 05/05/20 07 Caesarean Section completed CHANEL Matthew - [place] 08/29/2015 16:13:28 09/16/20 04 Caesarean Section completed CHANEL Matthew - [facility] 08/29/2015 16:18:13 10/26/19 03 Dilation and Curettage completed Christine Hartman [place] - [place] 08/29/2015 16:13:43 11/05/19 02 Caesarean Section completed Christine Hartman [place] - [place] 08/29/2015 16:18:21 partial hysterectomy completed JOSÉ ANTONIO IGNACIO Attn: Accounting,[address], [place], [address], [facility] - [facility] 02/16/2025 11:46:35 Imaging Results None recorded. Procedure Notes None recorded. Medical Equipment None Reported. Allergies Allergen ID Allergen Name Allergen Category Reaction Reaction Severity Criticality Documentation Date Start Date Code Code System Note Provider Name and Address Organization Details Recorded Time 688509 shellfish derived food,medi cation rash Not available Not available 02/16/2025 77996 CHANEL Ceron, [facility] 5 11:31:15 11973 wasp venoms environme nt dizziness severe Not available 11/12/2016 84249 RxNorm Pain, swell ing, nause a CHANEL Mcnamara, [facility] 7 11:56:56 Medications Name Sig Start Date Stop Date Status Note LastModified by Organization Details LastModified Time multivita min tablet Take 1 tablet every day by oral route. 12/02 completed Not Available Not Available Not Available losartan 50 mg tablet TAKE 1 TABLET BY MOUTH ONCE DAILY IN THE MORNING FOR HIGH BLOOD PRESSURE active Not Available Not Available No t Available cyclobenz aprine 10 mg tablet TAKE 1 TABLET BY MOUTH THREE TIMES DAILY NEEDED FOR MUSCLE SPASM active Not Available Not Available No t Available amoxicill in 500 mg capsule 05/23 completed Not Available Not Available Not Available metformin 500 mg tablet TAKE 1 TABLET BY MOUTH ONCE DAILY WITH MEALS FOR 1 WEEK THEN TAKE 1 TABLET TWICE A DAY WITH MEALS FOR 1 WEEK THEN TAKE 2 TABLETS TWICE A DAY WITH MEALS FOR 30 DAYS active Not Available Not Available No t Available cyanocoba parish (vit B-12) ER 1,000 mcg tablet,ex tended release TAKE 1 TABLET BY MOUTH TWICE DAILY WITH MEALS 02/16 completed Not Available Not Available Not Available promethaz ine-DM 6.25 mg-15 mg/5 mL oral syrup Take 5 mL every 6 hours by oral route as needed for 10 days. 01/12 completed Not Available Not Available Not Available prednison e 10 mg tablet TAKE 4 TABLETS BY MOUTH ONCE DAILY FOR 2 DAYS THEN 3 TABLETS BY MOUTH ONCE DAILY FOR 2 DAYS THEN 2 TABLETS BY MOUTH ONCE DAILY FOR 2 DAYS TH 04/24 completed Not Available Not Available Not Available venlafaxi ne ER 75 mg capsule,e xtended release 24 hr 12/02 completed Not Available Not Available Not Available paroxetin e 10 mg tablet TAKE 1 TABLET BY MOUTH IN THE MORNING WITH FOOD 12/02 completed Not Available Not Available Not Available atorvasta tin 20 mg tablet TAKE 1 TABLET BY MOUTH ONCE DAILY AT BEDTIME FOR HIGH CHOLESTE ROL active Not Available Not Available No t Available clindamyc in HCl 300 mg capsule 09/04 completed Not Available Not Available Not Available citalopra m 40 mg tablet Take 1 tablet every day by oral route in the evening for 30 days. 04/29 completed Not Available Not Available Not Available evening primrose oil 500 mg capsule Take 1 capsule every day by oral route at bedtime. 02/16 completed Not Available Not Available Not Available trazodone 50 mg tablet TAKE 1 TABLET BY MOUTH AT BEDTIME active Not Available Not Available No t Available azithromy hoa 250 mg tablet TAKE 2 TABLETS BY MOUTH ON DAY 1 AND THEN TAKE 1 TABLET BY MOUTH ONCE A DAY ON DAY 2 THROUGH DAY 5 04/24 completed Not Available Not Available Not Available ibuprofen 800 mg tablet TAKE 1 TABLET BY MOUTH THREE TIMES DAILY 02/16 completed Not Available Not Available Not Available tizanidin e 4 mg tablet Take 1 tablet every 8 hours by oral route for 30 days. 08/17 completed Not Available Not Available Not Available fluconazo le 150 mg tablet TAKE 1 TABLET BY MOUTH THREE TIMES A WEEK NEEDED FOR 7 DAYS 02/16 completed Not Available Not Available Not Available benzonata te 200 mg capsule Take 1 capsule 3 times a day by oral route for 10 days. 09/04 completed Not Available Not Available Not Available citalopra m 10 mg tablet Take 1 tablet every day by oral route in the evening for 30 days. 11/24 completed Not Available Not Available Not Available levonorge strel-eth inyl estradiol 0.1 mg-20 mcg tablet Take 1 tablet every day by oral route. 04/29 completed Not Available Not Available Not Available sumatript an 100 mg tablet TAKE 1 TABLET BY MOUTH AT ONSET OF HEADACHE MAY REPEAT IN 2 HOURS 11/24 completed Not Available Not Available Not Available hydrocodo ne 5 mg-acetam inophen 325 mg tablet 05/23 completed Not Available Not Available Not Available danazol 50 mg capsule Take 1 capsule twice a day by oral route. 09/04 completed Not Available Not Available Not Available metronida zole 0.75 % (37.5 mg/5 gram) vaginal gel Insert 1 applicat orful every day by vaginal route at bedtime for 5 days. 04/29 completed Not Available Not Available Not Available famotidin e 40 mg tablet TAKE 1 TABLET BY MOUTH ONCE DAILY DIRECTED FOR 30 DAYS FOR ACID REFLUX active Not Available Not Available No t Available prednison e 20 mg tablet TAKE 2 TABLETS BY MOUTH TWICE DAILY FOR 2 DAYS AND THEN TAKE 1 TAB TWICE DAILY FOR 5 DAYS AND 1 2 (ONE HALF) TAB TWICE DAILY FOR 2 DAYS AND 04/24 completed Not Available Not Available Not Available venlafaxi ne ER 150 mg capsule,e xtended release 24 hr Take 1 capsule every day by oral route in the evening for 30 days. 05/23 completed Not Available Not Available Not Available sumatript an 50 mg tablet TAKE ONE TABLET BY MOUTH AT ONSET OF MIGRAINE . IF SYMPTOMS PERSIST, A SECOND DOSE MAY BE TAKEN IN 2 HOURS. DO NOT EXCEED 2 DOSES IN A 24 HOUR PERIOD, UNLESS OTHERWIS E INSTRUCT ED BY YOUR PHYSICIA N active Not Available Not Available No t Available cyanocoba parish (vit B-12) 1,000 mcg tablet Take 1 tablet twice a day by oral route with meals for 30 days. 12/02 completed Not Available Not Available Not Available Periogard 0.12 % mouthwash 09/04 completed Not Available Not Available Not Available topiramat e 25 mg tablet TAKE ONE TABLET BY MOUTH AT BEDTIME, MAY INCREASE BY ONE TALBET WEEKLY TO UP TO 5 TABLETS DAILY 09/16 completed numbness of hands and feet Not Available Not Available Not Available metronida zole 500 mg tablet TAKE 1 TABLET BY MOUTH TWICE DAILY FOR 7 DAYS 02/16 completed Not Available Not Available Not Available ciproflox acin 500 mg tablet Take 1 tablet every 12 hours by oral route for 10 days. 11/24 completed Not Available Not Available Not Available tramadol 50 mg tablet Take 1 tablet every 6 hours by oral route as needed for 7 days. 02/16 completed Not Available Not Available Not Available triamcino lone acetonide 0.1 % topical cream APPLY CREAM EXTERNAL LY TO AFFECTED AREAS ON CHEST ARMS THREE TIMES DAILY 04/24 completed Not Available Not Available Not Available oxycodone -acetamin ophen 5 mg-325 mg tablet 05/23 completed Not Available Not Available Not Available citalopra m 20 mg tablet Take 1 tablet every day by oral route for 30 days. 11/24 completed Not Available Not Available Not Available doxycycli ne monohydra te 100 mg capsule 12/02 completed Not Available Not Available Not Available nortripty line 10 mg capsule Take 2 capsules as needed by oral route at bedtime for 60 days. 01/12 completed Not Available Not Available Not Available naproxen sodium 550 mg tablet Take 1 tablet twice a day by oral route. 08/17 completed Not Available Not Available Not Available ferrous sulfate 325 mg (65 mg iron) tablet Take 1 tablet every day by oral route with meals for 30 days. 12/02 completed Not Available Not Available Not Available ranitidin e 150 mg tablet TAKE ONE TABLET BY MOUTH TWICE DAILY 30 MINUTES BEFORE MEAL(S) 04/24 completed Not Available Not Available Not Available prednison e 50 mg tablet TAKE 1 TABLET BY MOUTH ONCE DAILY FOR 5 DAYS 02/16 completed Not Available Not Available Not Available losartan 25 mg tablet TAKE 1 TABLET BY MOUTH ONCE DAILY IN THE MORNING FOR 30 DAYS 02/16 completed Not Available Not Available Not Available lidocaine HCl 2 % mucosal solution 04/29 completed Not Available Not Available Not Available omeprazol e 20 mg capsule,d elayed release TAKE 1 CAPSULE BY MOUTH TWICE DAILY 30 MINUTES BEFORE MEAL(S) OR FOOD 02/16 completed Not Available Not Available Not Available mupirocin 2 % topical ointment 04/24 completed Not Available Not Available Not Available diclofena c sodium 50 mg tablet,de layed release TAKE 1 TABLET BY MOUTH THREE TIMES DAILY NEEDED FOR PAIN active Not Available Not Available No t Available polyethyl melissa glycol 3350 17 gram/dose oral powder 09/04 completed Not Available Not Available Not Available levofloxa hoa 750 mg tablet TAKE 1 TABLET BY MOUTH ONCE DAILY 12/02 completed Not Available Not Available Not Available methylpre dnisolone 4 mg tablets in a dose pack 05/23 completed Not Available Not Available Not Available losartan 50 mg-hydroc hlorothia zide 12.5 mg tablet TAKE 1 TABLET BY MOUTH ONCE DAILY 12/02 completed Not Available Not Available Not Available losartan 100 mg tablet TAKE 1 TABLET BY MOUTH ONCE DAILY IN THE MORNING FOR HIGH BLOOD PRESSURE active Not Available Not Available No t Available fluticaso ne propionat e 50 mcg/actua tion nasal spray,randy pension [place] 1 spray twice a day by intranas al route for 30 days. 04/29 completed Not Available Not Available Not Available vitamin E 268 mg (400 unit) capsule Take 1 capsule twice a day by oral route. 04/29 completed Not Available Not Available Not Available loratadin e 10 mg tablet TAKE 1 TABLET BY MOUTH ONCE DAILY FOR 30 DAYS 02/16 completed Not Available Not Available Not Available naproxen 500 mg tablet TAKE 1 TABLET BY MOUTH TWICE DAILY 12/02 completed Not Available Not Available Not Available amoxicill in 875 mg-potass ium clavulana te 125 mg tablet TAKE 1 TABLET BY MOUTH TWICE DAILY 04/11 completed Not Available Not Available Not Available escitalop janet 10 mg tablet Take 1 tablet every day by oral route in the morning for 30 days. 02/16 completed Not Available Not Available Not Available 11/14 (21) 1 mg-20 mcg tablet Take 1 tablet every day by oral route. 04/29 completed Not Available Not Available Not Available rosuvasta tin 10 mg tablet TAKE 1 TABLET BY MOUTH ONCE DAILY IN THE MORNING FOR 30 DAYS 02/16 completed Not Available Not Available Not Available omega-3 acid ethyl esters 1 gram capsule 12/02 completed Not Available Not Available Not Available Vitamin D3 50 mcg (2,000 unit) tablet Take 1 tablet every day by oral route with meals for 30 days. 12/02 completed Not Available Not Available Not Available Calcium with Vitamin D 600 mg-10 mcg (400 unit) tablet Take 1 tablet twice a day by oral route. 12/02 completed Not Available Not Available Not Available vitamin E (dl, acetate) 180 mg (400 unit) capsule Take 1 capsule twice a day by oral route. 12/02 completed Not Available Not Available Not Available calcium 600 mg (as carbonate )-vitamin D3 20 mcg (800 unit) tablet Take 1 tablet twice a day by oral route. 05/23 completed Not Available Not Available Not Available Pennsaid 20 mg/gram/a ctuation (2 %) topical soln in metered-d ose pump apply two pumps (40 MG) TO THE affected knee(s) topicall y TWICE DAILY active Not Available Not Available No t Available Tab-A-Vit e 400 mcg tablet TAKE 1 TABLET BY MOUTH ONCE DAILY 12/02 completed Not Available Not Available Not Available Vitals Date Recorded Body height Body mass index (BMI) Body weight Systolic blood pressure Diastolic blood pressure Provider Name and Address Organization Details Last Updated DateTime 12/02/2021 167.64 cm 35.7 kg/m2 863482.9 1 g 130 mm[Hg] 86 mm[Hg] Argelia Romero [place] - [facility] 2 11:12:25 Date Recorded Body height Body mass index (BMI) Body weight Oxygen saturation Oxygen saturation in Arterial blood by Pulse oximetry Heart rate Systolic blood pressure Diastolic blood pressure Provider Name and Address Organization Details Last Updated DateTime 2 167.64 cm 36.1 kg/m2 957004. 54 g 98 % 98 % 83 /min 132 mm[Hg] 78 mm[Hg] Carmen Blandon [place] [facility] 2 17:06:02 Date Recorded Body height Body mass index (BMI) Body weight Oxygen saturation Oxygen saturation in Arterial blood by Pulse oximetry Heart rate Respiratory rate Systolic blood pressure Diastolic blood pressure Systolic blood pressure Diastolic blood pressure Provider Name and Address Organization Details Last Updated DateTime 5 167.64 cm 34.9 kg/m2 34533.0 5 g 97 % 97 % 88 /min 16 /min 154 mm[Hg] 119 mm[Hg] 164 mm[Hg] 96 mm[Hg] Marianna Santana MA [facility] 5 11:30:41 Date Recorded Systolic blood pressure Diastolic blood pressure Provider Name and Address Organization Details Last Updated DateTime 03/14/2025 140 mm[Hg] 80 mm[Hg] JOSÉ ANTONIO IGNACIO Attn: Accounting,[address] [facility], [place], [address], [facility] 03/14/2025 16:50:00 Date Recorded Body height Body mass index (BMI) Body weight Oxygen saturation Oxygen saturation in Arterial blood by Pulse oximetry Heart rate Respiratory rate Systolic blood pressure Diastolic blood pressure Provider Name and Address Organization Details Last Updated DateTime 5 167.64 cm 35.3 kg/m2 65877.9 4 g 99 % 99 % 75 /min 16 /min 141 mm[Hg] 83 mm[Hg] Marianna Santana MA [facility] 5 16:26:03 Date Recorded Body height Body mass index (BMI) Body weight Oxygen saturation Oxygen saturation in Arterial blood by Pulse oximetry Heart rate Systolic blood pressure Diastolic blood pressure Provider Name and Address Organization Details Last Updated DateTime 2 167.64 cm 36.3 kg/m2 298815. 71 g 95 % 95 % 79 /min 126 mm[Hg] 80 mm[Hg] Carmen Blandon MA [facility] 2 11:20:50 Social History Question Answer Notes LastModified by Organizat ion Details LastModified Time Tobacco Smoking Status Never Smoker Gayatri Lazo MA null, [facility] 04/24/2015 15:32:09 Do You Have An Advance Directive? Yes Information not available 04/24/2015 Are You Blind Or Do You Have Difficulty Seeing? No Information not available 04/24/2015 Is Blood Transfusion Acceptable In An Emergency? Yes Information not available 08/29/2015 What Is Your Level Of Caffeine Consumption? Moderate Information not available 04/24/2015 How Much Tobacco Do You Chew? None Information not available 04/24/2015 Are You Deaf Or Do You Have Serious Difficulty Hearing? No Information not available 04/24/2015 What Type Of Diet Are You Following? REGULAR Information not available 04/24/2015 Which Illicit Or Recreational Drugs Have You Used? None Information not available 11/12/2016 Education 2 Year College Information not available 04/24/2015 Are There Any Guns Present In Your Home? No Information not available 04/24/2015 Hard Of Hearing Or Deaf In One Or Both Ears? No Information not available 04/24/2015 Legally Blind In One Or Both Eyes? No Information no t available 04/24/2015 Live Alone Or With Others? With Others Information not available 08/29/2015 Marital Status Informatio n not available 04/24/2015 What Was The Date Of Your Most Recent Tobacco Screening? 03/14/2025 Information not available 03/14/2025 How Many Children Do You Have? 3 Information not available 08/29/2015 Performs Monthly Self-breast Exam? Yes Information no t available 08/29/2015 Do You Use Protection During Sex? No Information not available 08/29/2015 What Is Your Relationship Status? Single Information not available 04/24/2021 Do You Use Your Seat Belt Or Car Seat Routinely? Yes Information not available 04/24/2021 Seat Belts Used Routinely Yes Information not available 04/24/2015 Are You Sexually Active? Yes Information not available 08/29/2015 Smoke Alarm In Home Yes Information not available 04/24/2015 Do You Have Smoke And Carbon Monoxide Detectors In Your Home? Yes Information not available 04/24/2021 Are You Passively Exposed To Smoke? No Information no t available 04/24/2021 How Much Tobacco Do You Smoke? No Information not available 04/24/2015 General Stress Level High Information not available 11/12/2016 Do You Use Sunscreen Routinely? No Information not available 04/24/2015 Has Tobacco Cessation Counseling Been Provided? Yes Information not available 04/24/2021 On What Date Was Tobacco Cessation Counseling Provided? 03/14/2025 Information not available 03/14/2025 Do You Have Difficulty Walking Or Climbing Stairs? No Information not available 04/24/2015 Sex: Female Functional Status Question Answer Note LastModified by Organizat ion Details LastModified Time Do you use any illicit or recreational drugs? No Information not available 04/24/2021 What is your level of alcohol consumption? Occasional Information not available 02/16/2025 Are you currently employed? Yes Information not available 08/29/2015 Do you have difficulty doing errands alone? No Information not available 04/24/2015 Are you able to care for yourself? 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 No Information not available 04/24/2015 What is your exercise level? None Information not available 04/24/2015 Mental Status Question Answer Note LastModified by Organizat ion Details LastModified Time Do you feel stressed (tense, restless, nervous, or anxious, or unable to sleep at night)? [id number] Information not available 04/24/2021 Do you have difficulty concentrating, remembering or making decisions? No Information no t available 04/24/2015 Family History Relationship Description Onset Age of this Age Resolved Age Notes LastModified by Organization Details LastModified Time Sister Family history of Ovarian carcinoma Not available 08/29 16:20:21 Sister Depressive disorder Not available 2016 11:58:17 Mother Hypertensive disorder alcoho lic, asthma Not available 08/29/2015 16:20:21 Father Chronic obstructive pulmonary disease alcoho lic Not available 08/29/2015 16:20:21 Father Hypertensive disorder Not available 2016 11:57:41 Medical History Condition Response Coronary Artery Disease N Kidney Cyst N Blood Diseases N Hyperthyroidism N Blood disorders N Blood Transfusion N MRSA N Emphysema N Depression N COPD N Blood Clots N Pneumonia N Premature N Peripheral Arterial Disease N Edema N TIA N Headaches/Migraines N Anxiety Disorder N Obesity N Polyps N Infertility N Acid Reflux (GERD) Y Hematuria N Stroke N Neck Injury N Polio N Hospital Admission other than N Neurologic Disorder N Other Sleep Disorders N Rheumatoid Arthritis N Fibromyalgia N Abdominal Aortic Aneurysm Repair N Kidney Disease N Heart Conditions N Heart Disease/Heart Problems N Hospitalizations N Brain Tumors N Acne N Skin Problems N Eating Disorder N Meningitis N Constipation N Tuberculosis N Cerebral Palsy N Myocardial Infarction N Asthma N Substance Abuse N Peripheral Vascular Disease N Vertigo N Sleep Disorder N Cirrhosis N Pulmonary Embolism N Chicken Pox N Hematologic Disease N Flomax Use Past or Present N Anxiety/Depression N Thyroid Disease N Colon Cancer N Lung Disease N Glaucoma N Developmental or Behavioral Disorders N Bipolar N Pacemaker N Diverticulitis/Diverticulosis N Orthopedic Problems N Anesthesia Complications N Orthotics N Head Injury/Concussion N Congenital Anomalies N [place] Bite N Chronic Kidney Disease N Endometriosis N Liver Disease N Schizophrenia N Dialysis N Speech Delay N Chronic Obstructive Pulmonary Disease N Parkinson's Disease N Thyroid Problems N GI Problems N Developmental Delay N Anemia N Multiple Sclerosis N Immune System Disorder N Colon Polyps N Heart Attack (CA) N Diabetes N Cardiomyopathy N Blood Transfusions N Heart Problems/Murmur N Eye Trauma N Congestive Heart Failure (CHF) N Valvular Heart Disease N Hyperlipidemia N Double Vision N Abuse/Domestic Violence N Hepatitis B N Lupus N Epilepsy/Seizures N Reflux/GERD N Aneurysm N Heart Disease N Bronchitis N Pre-Eclampsia N Hypertension N Heart Failure N Other N Gout N High Blood Pressure N Atrial Fibrillation N Kidney Stones N Head Trauma/Injury N Congenital Heart Disease N Spine Problems N Gastrointestinal Disease N Lung Mass N Sinusitis N Obstructive Sleep Apnea N Muscle, Joint, or Bone Problems N Autoimmune disease N Vision or Eye Problems N Arthritis N Blood Clot N Cancer N Seasonal allergies N Leg or Foot Ulcers N Raynaud's Disease N Aortic Aneurysm N Arrhythmia N Headaches N Heart Problems N Ambl[place]pia N Ear or Hearing Problems N Hyperparathyroidism N Migraines Y Artificial Joints N Kidney or Bladder Problems N NSAID Use N Encephalitis N PTSD N Ulcers N Prostate Hypertrophy N Bleeding Disorder N AIDS/HIV N Urinary Tract Infection N Back Problems N Allergies N Atrial Flutter N GERD/Reflux N Hepatitis N Autism Spectrum Disorder (ASD) N Breast Cancer N Hernia N Hypothyroidism N Breast Problem N Genitourinary Disease N Deep Vein Thrombosis N Varicose Veins N Cystic Fibrosis N Hearing Loss N Developmental Problems N Carotid Disease N Vitamin D Deficiency N ADHD N Bladder or Kidney Problems N High Cholesterol N [place] N Valvular Abnormalities N Psychiatric/Mental Health Condition N Organ Transplant N Foot Deformity N Allergies/Hayfever N Dyslipidemia N Hyponatremia N Diabetic Eye Disease N Osteoporosis/Osteopenia N Back Pain N Proteinuria N Mental Illness N Neurological Problems N Ovarian Cancer N Bedwetting N Seizures/Epilepsy N Kidney Failure N Ocular trauma N Diverticulitis N Dementia N Sleep Apnea N Mental Problems N Warfarin Management N Osteoporosis N Gynecological History Statement/Question Response Flow Heavy Date of LMP 11/12/2021 STIs/STDs Y HPV Vaccine N Duration of Flow (days) 5 Age at Menarche 13 Current Control Method Tubal Ligat ion Age at First Child 26 Frequency of Cycle (Q days) 28 Sexually Active? Y Menses Monthly Y Date of Last Pap Smear 04/29/2018 Sexual Problems? N LMP Approximate Desired Control Method None Obstetrics History GPAL:G 4 P 3 0 1 3 Type Value Multiple Births 0 Full Term 3 Induced 0 Spontaneous 1 Premature 0 Living 3 Ectopics 0 Total 4 Immunizations Vaccine Type Date Status Note Provider Nam e and Address Organization Details Recorded Time SARS-COV-2 (COVID-19) vaccine, UNSPECIFIED 1 completed Not Available [facility] 07/07/2022 02:57:16 SARS-COV-2 (COVID-19) vaccine, UNSPECIFIED 1 completed Not Available [facility] 02:57:16 Tdap 5 completed Not Available [facility] 03/14/2025 16:18:36 Hep A-Hep B 5 completed Not Available [facility] 03/14/2025 16:18:36 Hep A, adult 8 completed Not Available [facility] 11/12/2019 02:35:25 Past Encounters Encounter ID Performer Location Encounter Start Date Encounter Closed Date Diagnosis/Indication Diagnosis SNOMED-CT Code Diagnosis ICD10 Code Diagnosis Note [id number] PAUL Blanco (Adult Med) [address] [place] [address] 04/24/2015 15:06:34 04/25/2015 10:28:29 Migraine [id number] Obesity 111824873 Gastroesop hageal reflux disease 712805705 Cough [id number] MD Sissy Ramos (Adult Med) [address] [place] [address] 0 07/10/2015 16:20:31 07/11/2015 09:09:30 Cough 51271501 resolved with ranitidine Gastroesop hageal reflux disease 093284984 Migraine [id number] Adult [facility] th examination [id number] MD Sissy Collins (CERTIFICATION TECHNICIAN) [address] [place] [address]18[address] 0 08/29/2015 15:03:51 08/31/2015 12:56:46 Gynecologic examination 61306567 Z01.419 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 went to er . is doing a little better [id number] MD Sissy Ramos (Adult Med) [address] [place] [address]45[address]908 0 08/04/2016 09:31:16 08/04/2016 10:37:25 Fatigue 65300803 R53.83 Insomnia 335441194 G47.0 0 Obese 258997355 E66.9 Hyperlipid emia screening 313700705 Z13.220 Gastroesop hageal reflux disease 139174528 K21.9 [id number] MD Sissy Ramos (Adult Med) [address] [place] [address]668[address] 0 09/04/2016 09:46:28 09/04/2016 15:25:40 Insomnia 766350761 G47.00 Gastroesop hageal reflux disease 929500259 K21.9 Migraine 17361554 G43.90 9 Obesity 258452554 E66.9 Cough 29145116 R05 resolved with ranitidine Depressive disorder 3548 9007 F32.89 [id number] MD Sissy Ochoa (CERTIFICATION TECHNICIAN) [address] [place] [address]19-372 0 11/12/2016 11:24:47 11/21/2016 14:06:55 Gynecologic examination 53583123 Z01.419 Obesity 085256457 E66.9 Depressive disorder 3548 9007 F32.9 Family gulshan nning surveillance 942871316 Z30.09 Secondary dysmenorrh ea w/ heavy menstrual flow. Trying lo seasonique 84 on/7 off for sx relief for 4 periods a year [id number] MD Sissy Ramos (Adult Med) [address] [place] [address]27[address]484 0 01/16/2017 15:48:17 01/16/2017 17:48:56 Depressive disorder 97086229 F32.89 Insomnia 913296217 G47.0 0 Migraine 12136003 G43.90 9 [id number] MD Sissy Ramos (Adult Med) [address] [place] [address]93[address]465 0 03/03/2017 16:24:03 03/03/2017 18:03:53 Migraine 47421002 G43.909 Obese 246079436 E66.9 Obesity 704123725 E66.9 Insomnia 840583239 G47.0 0 Gastroesop hageal reflux disease 658309120 K21.9 Depressive disorder 3548 7 F32.89 Acute sinusitis 99215843 J01.90 Normal grief reaction 27 6767661 F43.20 [id number] MD Sissy Ramos (Adult Med) [address] [place] [address]87-315 0 09/16/2017 09:48:42 09/16/2017 10:51:32 Acute sinusitis 01577951 J01.90 Gastroesop hageal reflux disease 473884692 K21.9 [id number] MD Sissy Ramos (Adult Med) [address] [place] [address] 60882-214 0 10/27/2017 15:30:29 10/27/2017 16:40:50 Muscle spasm of cervical muscle of neck 7340036327 04 M62.838 Insomnia 103322954 G47.0 0 Obese 817204055 E66.9 Obesity 919952705 E66.9 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 [id number] MD Sissy Ramos (Adult Med) [address] [place] [address] 57036-701 0 11/24/2017 10:07:30 11/24/2017 13:35:43 Muscle spasm of cervical muscle of neck 1648088098 04 M62.838 Acute pharyngitis 002315 003 J02.9 Obesity 937483760 E66.9 Obese 311464300 E66.9 [id number] MD Sissy Ramos (Adult Med) [address] [place] [address] 39635-987 0 01/12/2018 09:58:09 01/12/2018 12:54:32 Depressive disorder 89147272 F32.89 Snoring 27554420 R06.83 Gastroesop hageal reflux disease 297470633 K21.9 [id number] MD Sissy Ramos (Adult Med) [address] [place] [address] 36927-431 0 02/12/2018 11:24:40 02/12/2018 12:01:48 Depressive disorder 95250328 F32.89 Insomnia 059634421 G47.0 0 Normal grief reaction 27 6320756 F43.20 Gastroesop hageal reflux disease 367970302 K21.9 Obese 031284092 E66.9 [id number] MD Sissy Ochoa (CERTIFICATION TECHNICIAN) [address] [place] [address] 17518-230 0 04/29/2018 15:27:36 05/03/2018 13:38:20 Gynecologic examination 82585637 Z01.419 Exposure t o sexually transmissible disorder 781500602 Z20.2 Fibrocysti c disease of breast 70384832 N60.19 [id number] MD Sissy Ramos (Adult Med) [address] [place] [address] 67864-292 0 05/27/2018 11:57:59 05/27/2018 13:22:29 Acquired left hallux valgus 7847173442 96711 M20.12 Insomnia 421434121 G47.0 0 Requires a hepatitis A vaccination 862578686 Z28.3 Gastroesop hageal reflux disease 577058764 K21.9 Obesity 614549634 E66.9 [id number] MD Sissy Ramos (Adult Med) [address] [place] [address] 87484[address] 0 08/17/2018 12:14:53 08/20/2018 03:46:11 Hallux valgus AND bunion 944404225 M20.12 No absolute medical contraindi cation for bunion surgery, avoid aspirin, naproxen or ibuprofen 3-5 days prior to surgery. Will contact podiatry Dr. Maradiaga 's office. [id number] MD Sissy Ochoa (CERTIFICATION TECHNICIAN) [address] [place] [address] 82090-438 0 05/23/2019 11:34:15 05/25/2019 10:52:01 Exposure to sexually transmissible disorder 365585404 Z20.2 Z11.3 At [facility] risk of sexually transmitted infection 739062680 Z20.2 Family gulshan nning surveillance 918337857 Z30.09 [id number] MD Sissy Ramos (Adult Med) [address] [place] [address] 57367-215 0 09/13/2020 11:19:50 09/14/2020 07:28:54 Exposure to SARS-CoV-2 996232644 Z20.828 Upper resp iratory infection 68327342 J06.9 [id number] MD Sissy Ramos (Adult Med) [address] [place] [address] 59598-874 0 04/24/2021 11:47:08 04/24/2021 12:31:30 Insomnia 774282207 G47.00 Gastroesop hageal reflux disease 641324043 K21.9 Pain in right foot 64512 16278 95047 M79.671 Hyperlipidemia 64599998 E78.5 Obese 116277571 E66.9 [id number] MD Sissy Ramos (Adult Med) [address] [place] [address] 67581-554 0 05/30/2021 09:47:36 05/30/2021 16:19:31 Pain in right foot 1318992829 37863 M79.671 Acquired l eft hallux valgus 1919687976 22994 M20.12 Gastroesop hageal reflux disease 618153992 K21.9 Depressive disorder 3548 9007 F32.89 Insomnia 773314923 G47.0 0 Obese 997528483 E66.9 Serum marshall min B12 borderline low 576879779 R79.89 Vitamin D deficiency 347 73172 E55.9 [id number] MD Sissy PHILLIPS (CERTIFICATION TECHNICIAN) [address] [place] [address] 90845-168 0 12/02/2021 10:46:40 12/03/2021 13:14:44 Screening for malignant neoplasm of cervix 824120488 Z12.4 routine pap exam today, no history of abnormal paps in the past. Next pap in 5 years if normal results. Dysmenorrhea 080239872 N 94.6 Chronic, painful menses. LMP 11/12/21. Last month had a 15 day heavy period with intermitte nt light days. Very painful, not responsive to ibuprofen or naproxen.- DDX adenomyosi s vs endometrio sis (see plan for adenomyosi s)- will send for TVUS- trial tramadol, heat, scheduled ibuprofen. Uterine adenomyosis 7843 06582 N80.0 AUB + dysmenorrh ea in 41F s/p BTL. Suspect adenomyosi s given age and history- will order US imaging to help with diagnosis- trial tramadol and heat. Suggested to take 800 mg ibuprofen scheduled every 8 hours during menses. Lipoma of skin 452794385 D17.30 2.75x2cm left gluteal fold. likely lipoma- gen surg referral for removal Vaginal discharge 733863 006 N89.8 Discharge noted on exam- will test for yeast/bv [id number] MD Sissy Ramos (Adult Med) [address] [place] [address] 00588-242 0 01/10/2022 16:52:18 01/13/2022 08:59:09 Essential hypertension 97583243 I10 Acute otitis media 67176 03 H66.92 Acute sinusitis 61247002 J01.90 Acquired l eft hallux valgus 9538944091 39734 M20.12 Allergic rhinitis 143805 04 J30.9 Hyperlipidemia 14681001 E78.5 Serum marshall min B12 borderline low 846562116 R79.89 [id number] Lisette Jaeger MD [facility] (Adult Med) [address] [place] [address] 41119-171 0 04/11/2022 11:05:25 04/15/2022 09:06:50 Muscle spasm of cervical muscle of neck 4913687537 04 M62.838 Strain of trapezius muscle 938933337 S46.812D Anxiety 35749082 F41.9 Acquired l eft hallux valgus 7822147585 58112 M20.12 Allergic rhinitis 849505 04 J30.9 Depressive disorder 3548 9007 F32.89 Essential hypertension 20426100 I10 Gastroesop hageal reflux disease 518001010 K21.9 Hyperlipidemia 67250079 E78.5 Insomnia 915152177 G47.0 0 Serum marshall min B12 borderline low 300769467 R79.89 Obese 538624093 E66.9 Vitamin D deficiency 347 20821 E55.9 [id number] Yuriy Donnelly MD [facility] [address] [place] [address] 02/16/2025 11:15:58 02/16/2025 11:54:40 Essential hypertension 74318965 I10 154/119, 164/96did not like water pill, start losartan 50advised to check BP at home, goal BP <120/70, f/u with BP log in 1 wk Mixed anxi ety and depressive disorder 050864851 F41.8 PHQ 11re-start trazodonef /u in 1 mo Difficulty sleeping 3013 56058 G47.9 relief in the past, helped with depression will re-start Screening for malignant neoplasm of breast 356835970 Z12.39 due for mammo Screening for malignant neoplasm of cervix 534506417 Z12.4 3 yrs since last papwill call Dr. Jewell for an appt Obese class I [id number] 53241 E66.811 BMI 34.9 Refractory migraine with aura 589155929 G43.119 halos, spotty vision, vomiting before migrainese nsitive to orange smells, caffeine, artificial sweeteners located in the back of her head and templesocc urs once a weekno relief with OTC medsrelief with imitrex in the past, but higher dose caused sedation, will start low dose, f/u in 1 mo Gastroesop hageal reflux disease 368924622 K21.9 worse at nighton omeprazole in the past Skin tag 851021511 L91.8 back of neck, will remove at f/u appt [id number] Yuriy Donnelly MD [facility] [address] [place] [address] 03/14/2025 16:16:51 03/14/2025 16:50:36 Essential hypertension 90304515 I10 03/14/25: 140s/80s in office, 150s-160s at homeincrea se losartan to 100 mg 02/16/25: 154/119, 164/96did not like water pill, start losartan 50advised to check BP at home, goal BP <120/70, f/u with BP log in 1 wk Multiple s kin tags on neck 579743297 L91.8 removed 1 skin tag to posterior neckno difficulty sent for pathology Depression screening 171 823761 Z13.31 2 Health Concerns Section Related Observation LastModified by Organization Detai ls LastModified Time None Recorded Concern Status LastModified by Organization Details LastModified Time None Recorded Advance Directives Directive Y: Payers Encounter Date Sequence Insurance Name Policy Number Policy Lam Covered Member ID Lam Member ID Guarantor Name 12/02/2021 1 [facility] (MEDICARE REPLACEMENT/A DVANTAGE - HMO) [id number] Carmen Bullard [id number] Carmen Bullard 01/10/2022 1 [facility] (MEDICARE REPLACEMENT/A DVANTAGE - HMO) [id number] Carmen uBllard [id number] Carmen Bullard 04/11/2022 1 [facility] (MEDICARE REPLACEMENT/A DVANTAGE - HMO) [id number] Carmen Bullard [id number] Carmen Bullard 02/16/2025 1 [employer] (MEDICARE REPLACEMENT/A DVANTAGE - HMO) [id number] Carmen Bullard [id number] Carmen Bullard 03/14/2025 1 [facility] (MEDICARE REPLACEMENT/A DVANTAGE - HMO) [id number] Carmen Bullard [id number] Carmen Bullard Notes Date Note Type Note Provider Name and Address Organization Details Recorded Time 12/02/2021 text/html problems-FemaleRep orted bypatient.Location :abdomen; vagina Quality:dull;achin g Onset/Timing:worse Context:no sexual dysfunction; no prior history of STDs; heterosexual; vaginal intercourse;sexual ly active;1 partners in last year Modifying Factors:nothing gives relief (ibuprofen or tylenol) Associated Symptoms:no flank pain; no blood in the urine; no pain during urination; no urgency 41F with PMH dysmenorrhea, abnormal uterine bleeding, bilateral tubal ligation presents for cervical cancer screening. She is also concerned with a mass on her left gluteal fold. It has grown in size over the years and now getting irritated by her elastic band from her underwear. MAGDALENA PIMENTEL MD Attn: Accounting, [address] [place], [address], [facility] 12/02/2021 18:12:36 01/10/2022 text/html epistaxis . Efrain Lucas PA-C Attn: Accounting, [address] [place], [address], [facility] 01/18/2022 12:44:41 04/11/2022 text/html right neck tightness Efrain Lucas PA-C Attn: Accounting, [address] [place], [address], [place] 04/14/2022 14:36:11 02/16/2025 text/html patient presents to establish care as a new patient. History of high blood pressure, depression, anxiety, migraines, acid reflux, and difficulty sleeping. States that she was on blood pressure medication and sleeping medication in the past with improvement of symptoms. She has been off medicines for over a year. JOSÉ ANTONIO IGNACIO Attn: Accounting, [address] [place], [address], [facility] 02/16/2025 13:47:24 03/14/2025 text/html Pt presents for skin tag removal to back of neck. JOSÉ ANTONIO IGNACIO Attn: Accounting[address] , [place], [address], [facility] 03/15/2025 13:03:18 OBGyn Episode Ob Episode Information Episode Created Date Number of Fetuses Patient Bloodtype Patient rh Status Prepregnancy Weight lbs Domestic Partner Domestic Partner Phone Father Name Gis Coordinator Status 11/12/19 17 1 CLOSED Fetus Data First Name Last Name Admitted to NICU Weight (g) Sex Living Outcome Pediatric Complications Fetus ID Race Codes Race Delivery Type 3345.24 1 F Full Term 04007 Gerardo Calculation Initial Gerardo Date Initial Exam [...] Complications Tubal Sterilization Discharge Date Comments 2 Regional-Ep idural 40 false Discharge Information Feeding Method Contraceptive Method Maternal HG B and HCT Levels Ob Episode Information Episode Created Date Number of Fetuses Patient Bloodtype Patient rh Status Prepregnancy Weight lbs Domestic Partner Domestic Partner Phone Father Name Gis Coordinator Status 11/12/19 17 1 CLOSED Fetus Data First Name Last Name Admitted to NICU Weight (g) Sex Living Outcome Pediatric Complications Fetus ID Race Codes Race Delivery Type 3798.83 3 M Full Term 23106 Repeat Gerardo Calculation Initial Gerardo Date Initial [...] Complications Tubal Sterilization Discharge Date Comments 7 Regional-Ep idural 38 false Baby was born in [facility] Discharge Information Feeding Method Contraceptive Method Maternal HG B and HCT Levels Ob Episode Information Episode Created Date Number of Fetuses Patient Bloodtype Patient rh Status Prepregnancy Weight lbs Domestic Partner Domestic Partner Phone Father Name Gis Coordinator Status 11/12/19 17 1 CLOSED Fetus Data First Name Last Name Admitted to NICU Weight (g) Sex Living Outcome Pediatric Complications Fetus ID Race Codes Race Delivery Type 3175.14 4 M Full Term 53162 Repeat Gerardo Calculation Initial Gerardo Date Initial [...] Complications Tubal Sterilization Discharge Date Comments 4 Regional-Ep idural 38 false Baby was born in [facility] Discharge Information Feeding Method Contraceptive Method Maternal HG B and HCT Levels
[2025-04-02 09:52] VITALS: BP 140/80; PULSE 70; RESP 16; O2SAT 97
--- NOTE | 2025-04-02 10:06 | ED_ITS ---
HPI - Headache General Chief Complaint: Headache Stated Complaint: migraine since thursday Time Seen by Provider: 04/02/25 10:03 Source: patient and family Mode of arrival: ambulatory Limitations: no limitations History of Present Illness HPI Narrative: 44 years old white female came to the ED by private car with her complaining of right frontal migraine headache similar to the past. Not improving on Imitrex, started 6 days ago, associated with nausea Worse with stress, light and noise. Patient denies any fever, chills, urinary symptoms or respiratory symptoms. Related Data Home Medications ?Medication ?Instructions ?Recorded ?Confirmed ?Last Taken ?Type ascorbic acid (vitamin C) 1,000 mg 1 g PO DAILY 03/02/23 02/03/24 03/06/23 History tablet (Vitamin C) cholecalciferol (vitamin D3) 125 125 mcg PO DAILY 03/02/23 02/03/24 03/06/23 History mcg (5,000 unit) tablet (Vitamin D3) evening primrose oil 500 mg capsule 1,000 mg PO DAILY 03/02/23 02/03/24 03/06/23 History ferrous sulfate 325 mg (65 mg 325 mg PO DAILY 03/02/23 02/03/24 Unknown History iron) tablet (Iron (ferrous sulfate)) loratadine 10 mg tablet 10 mg PO DAILY 03/02/23 02/03/24 03/09/23 History mecobalamin (vitamin B12) 1,000 1,000 mcg PO DAILY 03/02/23 02/03/24 03/06/23 History mcg chewable tablet (B12 Active) multivitamin 1 tablet PO DAILY 03/02/23 02/03/24 03/06/23 History omeprazole 20 mg capsule,delayed 40 mg PO DAILY 03/02/23 02/03/24 03/06/23 History release vitamin E 268 mg (400 unit) capsule 268 mg PO DAILY 03/02/23 02/03/24 03/06/23 History albuterol sulfate 90 mcg/actuation inhalation 11/14/24 Unknown History aerosol inhaler atorvastatin 20 mg tablet mg 03/31/25 Unknown History famotidine 40 mg tablet mg 03/31/25 Unknown History losartan 100 mg tablet mg 03/31/25 Unknown History metformin 500 mg tablet mg 03/31/25 Unknown History sumatriptan succinate 50 mg tablet mg PO 03/31/25 Unknown History trazodone 50 mg tablet mg 03/31/25 Unknown History Allergies Allergy/AdvReac Type Severity Reaction Status Date / Time shellfish derived Allergy Severe Swelling Verified 04/02/25 09:14 of Lip/Tongue/Throat WASP AdvReac Severe Swelling Uncoded 04/02/25 09:14 Review of Systems Review of Systems: All systems reviewed & are unremarkable except as noted in HPI and below PMFSH Past Medical History Medical History Obesity Anxiety no longer on any medications Depression no longer taking medications. Renal disease GERD (gastroesophageal reflux disease) Surgical History Surgical History History of bunionectomy Previous section X3 Hx of tubal ligation Family History Family History Mother Asthma Hypertension Sibling Asthma Hypertension Sibling Asthma Father Chronic obstructive pulmonary disease He has been Congestive heart failure Social History Social History Social History: the patient recently started a job at [employer] She is from her but now lives with a significant other. She has 3 children. She stated that her significant other are could be durable power securities attorney for healthcare. Patient is a full code. She is a lifelong nonsmoker and rarely uses alcohol. She denies any marijuana or illicit drugs. Smoking status: Never smoker Second hand tobacco smoke exposure: No Alcohol intake: current Alcohol use details: VERY RARE Substance use: never Substance use type: does not use Living arrangements: with friend(s) Gender identity (if verbalized by the patient): Female Sexual Orientation (if Verbalized by the Patient): Straight or Heterosexual Spiritual care concerns: No Exam Narrative: General appearance: Well-developed, well-nourished Skin: Normal color Head: Normocephalic, nontraumatic Eyes: Clear conjunctiva ENT: Oropharynx normal, ears normal, nose normal Neck: Supple, nontender Chest and respiratory: Airway patent, no respiratory distress, no accessory muscle use Heart: Regular rate/rhythm Abdomen: Soft, nontender, no organomegaly, quiet bowel sounds Vascular: Normal peripheral pulses, normal capillary refill. Musculoskeletal: Normal range of motion, nontender back Neurologic: Alert and oriented ?3, CUSTOMER ACCOUNT REPRESENTATIVE is normal as tested, no gross motor deficit Course Vital Signs Vital signs: Vital Signs Temperature 36.9 C 04/02/25 09:14 Pulse Rate 87 04/02/25 09:14 Respiratory Rate 16 04/02/25 09:14 Blood Pressure 177/113 H 04/02/25 09:14 Pulse Oximetry 98 04/02/25 09:14 Oxygen Delivery Room Air 04/02/25 09:14 Temperature 36.9 C 04/02/25 09:14 Pulse Rate 70 04/02/25 09:52 Respiratory Rate 16 04/02/25 09:52 Blood Pressure 140/80 04/02/25 09:52 Pulse Oximetry 97 04/02/25 09:52 Oxygen Delivery Room Air 04/02/25 09:14 MDM - Headache MDM Narrative Medical decision making narrative: Patient presents with migraine headache like symptoms, similar to the previous ones. Did not take her blood pressure medication today because she is coming to us Vital signs showing blood pressure 177/113 otherwise within normal limit, physical examination is unremarkable IV fluid, Toradol, Reglan and Benadryl IV ordered. Also home medication of losartan 100 mg p.o. once Patient's symptom resolved, feeling much better and ready to go home. The pt was discharged to home.the pt,s condition upon discharge was fair,education was provided to the pt in reference to the final impression,discharge study results,treatment,prognosis and need for follow up . Discharge Plan Discharge Clinical Impression: Headache, migraine Patient Disposition: Home Condition: Stable Instructions: Migraine Headache (ED) Additional Instructions: Return if symptoms are worsening , call your family physician for appointment, take Tylenol as as needed for aches and pain, continue home medications. Patient Language: Czech Prescriptions: No Action albuterol sulfate 90 mcg/actuation HFA aerosol inhaler INHALATION cyclobenzaprine 10 mg tablet 10 mg PO TID PRN (Reason: muscle spasm) Qty: 20 0RF diclofenac sodium 50 mg tablet,delayed release (DR/EC) 50 mg PO TID PRN (Reason: pain) Qty: 20 0RF metformin 500 mg tablet atorvastatin 20 mg tablet trazodone 50 mg tablet famotidine 40 mg tablet sumatriptan succinate 50 mg tablet PO losartan 100 mg tablet multivitamin Tablet 1 tablet PO DAILY ascorbic acid (vitamin C) [Vitamin C] 1,000 mg Tablet 1 g PO DAILY evening primrose oil 500 mg Capsule 1,000 mg PO DAILY Rx Instructions: give with meal/snack ferrous sulfate [Iron (ferrous sulfate)] 325 mg (65 mg iron) Tablet 325 mg PO DAILY omeprazole 20 mg Capsule,Delayed Release(Dr/Ec) 40 mg PO DAILY vitamin E 268 mg (400 unit) Capsule 268 mg PO DAILY loratadine 10 mg Tablet 10 mg PO DAILY cholecalciferol (vitamin D3) [Vitamin D3] 125 mcg (5,000 unit) Tablet 125 mcg PO DAILY mecobalamin (vitamin B12) [B12 Active] 1,000 mcg Tablet,Chewable 1,000 mcg PO DAILY Follow-up/Referrals: Krystyna,JOSÉ ANTONIO Colindres [Primary Care Provider] -
[2025-04-02] MEDS: SODIUM CHLORIDE 0.9% IV 1,000 ML 999 ML IV CONT (10:37)
[2025-04-02] MEDS: KETOROLAC 30 MG/ML VIAL (*BKC) IV PUSH (10:38)
[2025-04-02] MEDS: diphenhydrAMINE HCl INJ 50 MG/ML VIAL IV PUSH (10:39)
[2025-04-02] MEDS: METOCLOPRAMIDE HCL INJ 10 MG/2 ML VIAL IV PUSH (10:41)
[2025-04-02] MEDS: LOSARTAN POTASSIUM 100 MG TABLET PO (10:58)
--- NOTE | 2025-04-02 11:03 | PC.NURSE ---
Patient ambulated to the restroom with steady gate
== END 2025-04-02 12:01 | disposition home or self-care (01) ==
PROVIDERS: Emergency Provider Emergency Medicine; PCP Physician Assistant
DX: G43.909 Migraine, unspecified, not intractable, without status migrainosus (principal); K21.9 Gastro-esophageal reflux disease without esophagitis
CPT/HCPCS: 96361; 96374; 96375; 99284; A9270; J1200; J1885; J2765; J7030

== ENCOUNTER 2025-04-14 16:37 | Emergency (ER) | payer OTHER, SELFPAY ==
[2025-04-14] VITALS (9 sets, daily range): BP systolic 120–161; BP diastolic 61–73; PULSE 69–96; RESP 14–19; TEMP 36.3–36.4; O2SAT 97–99
--- NOTE | 2025-04-14 19:37 | ED.HA ---
HPI - Headache General Chief Complaint: Headache Stated Complaint: headache [id number] Time Seen by Provider: 04/14/25 19:25 History of Present Illness HPI Narrative: 44-year-old female with a history of migraines presents emergency department for migraine for the past 17 days. Patient states the headache is throughout the frontal aspect of her head and radiates into the occiput. She denies injury or trauma. She reports associated photophobia, phonophobia nausea. No emesis. She denies fever. She is prescribed sumatriptan which she took at the onset of her symptoms without improvement. She states she took Tylenol Benadryl this morning which caused her to sleep, she is uncertain if it helps her headache. She has an appointment for follow-up with her PCP on 04/27/2025. She was evaluated in our ED on 04/02/2025 for migraine, received a headache cocktail with improvement and was discharged home but unfortunately the migraine returned the following day. Related Data Home Medications ?Medication ?Instructions ?Recorded ?Confirmed ?Last Taken ?Type ascorbic acid (vitamin C) 1,000 mg 1 g PO DAILY 03/02/23 02/03/24 03/06/23 History tablet (Vitamin C) cholecalciferol (vitamin D3) 125 125 mcg PO DAILY 03/02/23 02/03/24 03/06/23 History mcg (5,000 unit) tablet (Vitamin D3) evening primrose oil 500 mg capsule 1,000 mg PO DAILY 03/02/23 02/03/24 03/06/23 History ferrous sulfate 325 mg (65 mg 325 mg PO DAILY 03/02/23 02/03/24 Unknown History iron) tablet (Iron (ferrous sulfate)) loratadine 10 mg tablet 10 mg PO DAILY 03/02/23 02/03/24 03/09/23 History mecobalamin (vitamin B12) 1,000 1,000 mcg PO DAILY 03/02/23 02/03/24 03/06/23 History mcg chewable tablet (B12 Active) multivitamin 1 tablet PO DAILY 03/02/23 02/03/24 03/06/23 History omeprazole 20 mg capsule,delayed 40 mg PO DAILY 03/02/23 02/03/24 03/06/23 History release vitamin E 268 mg (400 unit) capsule 268 mg PO DAILY 03/02/23 02/03/24 03/06/23 History albuterol sulfate 90 mcg/actuation inhalation 11/14/24 Unknown History aerosol inhaler atorvastatin 20 mg tablet mg 03/31/25 Unknown History famotidine 40 mg tablet mg 03/31/25 Unknown History losartan 100 mg tablet mg 03/31/25 Unknown History metformin 500 mg tablet mg 03/31/25 Unknown History sumatriptan succinate 50 mg tablet mg PO 03/31/25 Unknown History trazodone 50 mg tablet mg 03/31/25 Unknown History Allergies Allergy/AdvReac Type Severity Reaction Status Date / Time shellfish derived Allergy Severe Swelling Verified 04/14/25 17:03 of Lip/Tongue/Throat WASP AdvReac Severe Swelling Uncoded 04/14/25 17:03 Review of Systems Review of Systems: All systems reviewed & are unremarkable except as noted in HPI and below PMFSH Past Medical History Medical History Obesity Anxiety no longer on any medications Depression no longer taking medications. Renal disease GERD (gastroesophageal reflux disease) Surgical History Surgical History History of bunionectomy Previous section X3 Hx of tubal ligation Family History Family History Mother Asthma Hypertension Sibling Asthma Hypertension Sibling Asthma Father Chronic obstructive pulmonary disease He has been Congestive heart failure Social History Social History Social History: the patient recently started a job at [email or web address]. She is from her but now lives with a significant other. She has 3 children. She stated that her significant other are could be durable power claim attorney for healthcare. Patient is a full code. She is a lifelong nonsmoker and rarely uses alcohol. She denies any marijuana or illicit drugs. Smoking status: Never smoker Second hand tobacco smoke exposure: No Alcohol intake: current Alcohol use details: VERY RARE Substance use: never Substance use type: does not use Living arrangements: with friend(s) Gender identity (if verbalized by the patient): Female Sexual Orientation (if Verbalized by the Patient): Straight or Heterosexual Spiritual care concerns: No Exam Narrative: GENERAL: Well-appearing, well-nourished, and in no acute distress. HEAD: Normocephalic, atraumatic. EYES: PERRLA and EOMI. ENT: Nares clear, no rhinorrhea or epistaxis. Mucous membranes moist. NECK: Supple. No nuchal rigidity CHEST: Clear to auscultation. No respiratory distress. HEART: Regular rate and rhythm. No murmur heard. Normal peripheral pulses. ABDOMEN: Soft, nontender, nondistended, normal active bowel sounds. EXTREMITIES: Normal range of motion. No edema. SKIN: Warm, dry, no rash. NEURO: No focal deficits. Alert and oriented x4. Cranial nerves 2-12 intact. Strength 5/5 in BUE and BLE. Sensation intact throughout. Normal [id number]. No pronator drift. Course Vital Signs Vital signs: Vital Signs Temperature 97.4 F L 04/14/25 17:01 Pulse Rate 90 04/14/25 17:01 Respiratory Rate 14 04/14/25 17:01 Blood Pressure 138/71 04/14/25 17:01 Pulse Oximetry 99 04/14/25 17:01 Oxygen Delivery Room Air 04/14/25 17:01 Temperature 97.6 F 04/14/25 22:17 Pulse Rate 87 04/14/25 22:17 Respiratory Rate 19 04/14/25 22:17 Blood Pressure 137/63 04/14/25 22:17 Pulse Oximetry 97 04/14/25 22:17 Oxygen Delivery Room Air 04/14/25 17:01 MDM - Headache MDM Narrative Medical decision making narrative: 44-year-old female with history of migraines presents to the emergency department for migraine for the past 17 days. No head injury or trauma. Patient is neurovascularly intact without focal deficits. Vitals are stable. Patient is afebrile and nontoxic appearing. Patient states this headache is similar to her previous migraines. Will attempt IV fluids, headache cocktail and provide magnesium. Additionally given her reported rebound headaches and length of headache, will provide IV Decadron in hopes to prevent rebound headache. Patient re-evaluated and states she feels much better, but still has mild pressure in her head. I did offer to provide more pain medications and observe her however she declined, states the pain is tolerable and would like to go home. I advised her to take Tylenol/ibuprofen as needed and take Imitrex as needed and to follow-up closely with her PCP. I discussed strict ED return precautions. She is agreeable with the plan verbalized understanding. Discharged in stable condition. Discharge Plan Discharge Clinical Impression: Headache Patient Disposition: Home Condition: Stable Instructions: Antibiotic Form, Acute Headache (ED) Additional Instructions: You were evaluated in the emergency department for migraine. Your given steroids, migraine cocktail and fluids with improvement. Please stay hydrated, take Tylenol and ibuprofen as needed for pain and continue your Imitrex as needed. Please make sure to follow-up closely with your primary care provider. Return to the emergency department if you develop a fever, focal numbness or weakness, you are unable to tolerate food or fluids, or other concerning symptoms. Patient Language: Urdu Prescriptions: No Action albuterol sulfate 90 mcg/actuation HFA aerosol inhaler INHALATION cyclobenzaprine 10 mg tablet 10 mg PO TID PRN (Reason: muscle spasm) Qty: 20 0RF diclofenac sodium 50 mg tablet,delayed release (DR/EC) 50 mg PO TID PRN (Reason: pain) Qty: 20 0RF metformin 500 mg tablet atorvastatin 20 mg tablet trazodone 50 mg tablet famotidine 40 mg tablet sumatriptan succinate 50 mg tablet PO losartan 100 mg tablet multivitamin Tablet 1 tablet PO DAILY ascorbic acid (vitamin C) [Vitamin C] 1,000 mg Tablet 1 g PO DAILY evening primrose oil 500 mg Capsule 1,000 mg PO DAILY Rx Instructions: give with meal/snack ferrous sulfate [Iron (ferrous sulfate)] 325 mg (65 mg iron) Tablet 325 mg PO DAILY omeprazole 20 mg Capsule,Delayed Release(Dr/Ec) 40 mg PO DAILY vitamin E 268 mg (400 unit) Capsule 268 mg PO DAILY loratadine 10 mg Tablet 10 mg PO DAILY cholecalciferol (vitamin D3) [Vitamin D3] 125 mcg (5,000 unit) Tablet 125 mcg PO DAILY mecobalamin (vitamin B12) [B12 Active] 1,000 mcg Tablet,Chewable 1,000 mcg PO DAILY Follow-up/Referrals: Krystyna,JOSÉ ANTONIO Colindres [Primary Care Provider] -
[2025-04-14] MEDS: ACETAMINOPHEN 500 MG TABLET 1000 MG PO (19:45)
[2025-04-14] MEDS: PROCHLORPERAZINE EDISYLATE 10 MG/2 ML VIAL IV PUSH (19:46)
[2025-04-14] MEDS: KETOROLAC 30 MG/ML VIAL (*BKC) IV PUSH (19:46)
[2025-04-14] MEDS: SODIUM CHLORIDE 0.9% IV 1,000 ML 999 ML IV CONT (19:46)
[2025-04-14] MEDS: diphenhydrAMINE HCl INJ 50 MG/ML VIAL 25 MG IV PUSH (19:46)
[2025-04-14] MEDS: MAGNESIUM SULF 2 GM/WATER 50ML 2 GM/50 ML BAG IVPB (19:47)
[2025-04-14] MEDS: dexAMETHasone SOD PHOS INJ 10 MG/ML 1 ML VIAL IV PUSH (19:47)
== END 2025-04-14 22:18 | disposition home or self-care (01) ==
PROVIDERS: Emergency Provider Physician Assistant; PCP Physician Assistant
DX: R51.9 Headache, unspecified (principal); K21.9 Gastro-esophageal reflux disease without esophagitis; E66.9 Obesity, unspecified; Z68.34 Body mass index [BMI] 34.0-34.9, adult
CPT/HCPCS: 96361; 96365; 96366; 96375; 99284; A9270; J0780; J1100; J1200; J1885; J3475; J7030

== ENCOUNTER 2025-05-26 09:29 | Emergency (ER) | payer OTHER, SELFPAY ==
[2025-05-26 09:37] VITALS: BP 137/63; PULSE 86; RESP 18; TEMP 36.9; O2SAT 99
--- NOTE | 2025-05-26 10:02 | ED_ITS ---
HPI - Back Pain/Injury General Chief Complaint: Back Pain/Injury Stated Complaint: Low Back Pain Time Seen by Provider: 05/26/25 09:40 Source: patient and RN notes reviewed Mode of arrival: ambulatory Limitations: no limitations History of Present Illness HPI Narrative: 44-year-old female presents Express Care complaining of low back pain for approximately 2 days. 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 Patient reports pain shoots into both sides of her low back due to her buttocks and is worse with certain movements of her back. Patient denies any saddle anesthesia, numbness, tingling, shooting pains down her legs, loss of bowel or bladder function, or leg weakness. Patient taking Tylenol and ibuprofen without relief. Related Data Home Medications ?Medication ?Instructions ?Recorded ?Confirmed ?Last Taken ?Type cholecalciferol (vitamin D3) 125 125 mcg PO DAILY 03/02/23 02/03/24 03/06/23 History mcg (5,000 unit) tablet (Vitamin D3) mecobalamin (vitamin B12) 1,000 1,000 mcg PO DAILY 03/02/23 02/03/24 03/06/23 History mcg chewable tablet (B12 Active) multivitamin 1 tablet PO DAILY 03/02/23 02/03/24 03/06/23 History omeprazole 20 mg capsule,delayed 40 mg PO DAILY 03/02/23 02/03/24 03/06/23 History release atorvastatin 20 mg tablet 20 mg 03/31/25 Unknown History losartan 100 mg tablet 100 mg 03/31/25 Unknown History metformin 500 mg tablet 1,000 mg 03/31/25 Unknown History sumatriptan succinate 50 mg tablet mg PO 03/31/25 Unknown History trazodone 50 mg tablet mg 03/31/25 Unknown History amitriptyline 25 mg tablet mg 05/26/25 Unknown History Allergies Allergy/AdvReac Type Severity Reaction Status Date / Time shellfish derived Allergy Severe Swelling Verified 05/26/25 09:36 of Lip/Tongue/Throat WASP AdvReac Severe Swelling Uncoded 04/14/25 17:03 Review of Systems Review of Systems: CONSTITUTIONAL: Denies fever, chills, or sweats. EYES: Denies visual changes, redness, or discharge. ENT: Denies rhinorrhea, congestion, sore throat, or otalgia. CARDIOVASCULAR: Denies chest pain, palpitations, or edema. RESPIRATORY: Denies cough or dyspnea. GASTROINTESTINAL: Denies abdominal pain, nausea, vomiting, or diarrhea. GENITOURINARY: Denies dysuria or hematuria. SKIN: Denies rash or itching. MUSCULOSKELETAL: Positive for back pain. Negative for joint pain, or myalgia. NEUROLOGIC: Denies headache, numbness, saddle anesthesia, loss of bowel or bladder function, or weakness. PSYCHIATRIC: Denies anxiety or depression. All other systems reviewed are negative, except as documented in HPI. [facility] Past Medical History Medical History Obesity Anxiety no longer on any medications Depression no longer taking medications. Renal disease GERD (gastroesophageal reflux disease) Surgical History Surgical History History of bunionectomy Previous section X3 Hx of tubal ligation Family History Family History Mother Asthma Hypertension Sibling Asthma Hypertension Sibling Asthma Father Chronic obstructive pulmonary disease He has been Congestive heart failure Social History Social History Social History: the patient recently started a job at [employer]. She is from her but now lives with a significant other. She has 3 children. She stated that her significant other are could be durable power tax associate attorney for healthcare. Patient is a full code. She is a lifelong nonsmoker and rarely uses alcohol. She denies any marijuana or illicit drugs. Smoking status: Never smoker Second hand tobacco smoke exposure: No Alcohol intake: current Alcohol use details: VERY RARE Substance use: never Substance use type: does not use Living arrangements: with friend(s) Gender identity (if verbalized by the patient): Female Sexual Orientation (if Verbalized by the Patient): Straight or Heterosexual Spiritual care concerns: No Comments At the time of my signature, I reviewed and agree with the nursing past medical, surgical, social, and family history. There is no relevant family history pertinent to the patient complaint. Exam Narrative: GENERAL: This is a well-nourished, well-developed adult, in no apparent distress. They are non ill-appearing, nontoxic appearing. HEAD: normocephalic, atraumatic. EYES: Sclera clear/white. Conjunctiva normal. Vision is grossly intact. Extraocular movements intact EARS: External ears normal, Hearing grossly intact. NOSE: External nose normal THROAT: Mucous membranes moist, NECK: Neck supple, CARDIOVASCULAR: Regular rate and rhythm RESPIRATORY: Respiratory rate normal, respiratory effort nonlabored, no respiratory distress SKIN: warm, Dry, intact with no suspicious lesions or rash, good texture and turgor. NEURO: awake, alert, and oriented to person, place and time. There were no obvious focal neurologic abnormalities. EXTREMITIES: No joint tenderness, effusion, or edema noted. BACK: No CVA tenderness. Lumbar tenderness to palpation throughout the lower back. No cervical, thoracic, lumbar point tenderness, no crepitus, or step- offs. Course Course Emergency Course: Portions of this record may have been created with voice recognition software Level of Care: Express Care Visit Vital Signs Vital signs: Vital Signs Temperature 98.4 F 05/26/25 09:37 Pulse Rate 86 05/26/25 09:37 Respiratory Rate 18 05/26/25 09:37 Blood Pressure 137/63 05/26/25 09:37 Pulse Oximetry 99 05/26/25 09:37 Oxygen Delivery Room Air 05/26/25 09:37 Temperature 98.4 F 05/26/25 09:37 Pulse Rate 86 05/26/25 09:37 Respiratory Rate 18 05/26/25 09:37 Blood Pressure 137/63 05/26/25 09:37 Pulse Oximetry 99 05/26/25 09:37 Oxygen Delivery Room Air 05/26/25 09:37 Reviewed MDM - Back Pain/Injury MDM Narrative Medical decision making narrative: Patient use of a low back strain sciatica symptoms. Will prescribe a short course of prednisone, lidocaine patches, and muscle relaxers. Patient to monitor blood sugar closely with her history of diabetes. Discussed physical exam findings. Advised supportive measures and signs/symptoms to go to the ER. Pt is appropriate for outpt treatment and f/u. Differential Diagnosis Differential diagnosis: Likely lumbar radiculopathy, sciatica and strain of lumbar region Critical Care Time Critical Care Time Critical Care Time: No Discharge Plan Discharge Clinical Impression: Strain of lumbar region Qualifiers: Encounter type: initial encounter Qualified Code(s): S39.012A - Strain of muscle, fascia and tendon of lower back, initial encounter Patient Disposition: Home Condition: Stable Instructions: Acute Low Back Pain (ED), Lower Back Exercises (ED) Additional Instructions: Take the muscle relaxer as directed. Do not drive or operate heavy machine, or work while taking the medication as it can make you drowsy. Take the prednisone as directed. Take it in the morning take with food. Monitor blood sugars closely while taking steroids. Use the lidocaine patches as directed. You may take Tylenol or ibuprofen as needed for pain, follow instructions on the bottle. Please follow-up with your primary care provider if pain persist Rest. Avoid pushing, pulling, lifting --running or excessive walking-- or anything that worsens the symptoms You may try stretching your lower back or doing spinal decompression to help with symptoms. Go to the emergency department if you develop any numbness or tingling to your groin, weakness in your legs, or any loss of bowel or bladder function. Patient Language: Prydeinig Prescriptions: New prednisone 20 mg tablet 40 mg PO DAILY 5 Days Qty: 10 0RF methocarbamol 750 mg tablet 750 mg PO TID Qty: 12 0RF lidocaine 5 % adhesive patch,medicated 1 patch topical DAILY Qty: 15 0RF Rx Instructions: leave on most painful area for up to 12 hrs No Action metformin 500 mg tablet 1,000 mg atorvastatin 20 mg tablet 20 mg trazodone 50 mg tablet sumatriptan succinate 50 mg tablet PO losartan 100 mg tablet 100 mg amitriptyline 25 mg tablet multivitamin Tablet 1 tablet PO DAILY omeprazole 20 mg Capsule,Delayed Release(Dr/Ec) 40 mg PO DAILY cholecalciferol (vitamin D3) [Vitamin D3] 125 mcg (5,000 unit) Tablet 125 mcg PO DAILY mecobalamin (vitamin B12) [B12 Active] 1,000 mcg Tablet,Chewable 1,000 mcg PO DAILY Follow-up/Referrals: Krystyna,JOSÉ ANTONIO Colindres [Primary Care Provider] - Stand Alone Forms: Work/School Release IP Time of Disposition: 09:53
== END 2025-05-26 10:01 | disposition home or self-care (01) ==
PROVIDERS: PCP Physician Assistant
DX: S39.012A Strain of muscle, fascia and tendon of lower back, initial encounter (principal); X58.XXXA Exposure to other specified factors, initial encounter; E11.9 Type 2 diabetes mellitus without complications; Z79.84 Long term (current) use of oral hypoglycemic drugs; K21.9 Gastro-esophageal reflux disease without esophagitis; E66.9 Obesity, unspecified; Z68.35 Body mass index [BMI] 35.0-35.9, adult
CPT/HCPCS: 99213; G0463